=== PATIENT | female | born 1940 | race Hispanic/Latino ===

== ENCOUNTER 2016-10-20 12:23 | Inpatient (IN) | payer MEDICARE ==
[2016-10-20] MEDS ORDERED: Albuterol-Ipratrop 3 mg / 0.5 (3 ml) UD IH STA ×3 (12:33→14:08)
[2016-10-20] MEDS ORDERED: Nitroglycerin 2% Ointment Foilpak UD TOP STA (12:36)
--- NOTE | 2016-10-20 12:36 | ED PDOC ---
Arrival/HPI - General Time Seen by Provider: 10/20/16 12:26 Historian: Patient, Family - History of Present Illness Narrative History of Present Illness (Text): 10/20/16 12:35 76 year old female with a past medical history that includes atrial fibrillation on Coumadin, congestive heart failure, COPD, pancreatitis, CVA, TIA , diabetes, CABG, and breast cancer presents to the emergency department with shortness of breath since this morning. Patient also reports some chest tightness and nasal congestion. She reports intermittent leg swelling. No other complaints at this time. PMD: Dr. Duggan Time/Duration: 24 hours Symptom Onset: Sudden Symptom Course: Unchanged Modifying Factors (Text): None Associated Symptoms (Text): None Past Medical History - Provider Review Nursing Documentation Reviewed: Yes - Infectious Disease Hx of Infectious Diseases: None - Tetanus Immunization Tetanus Immunization: Unknown - Cardiac Hx Cardiac Disorders: Yes (Afib) Hx Congestive Heart Failure: Yes Hx Hypertension: Yes - Pulmonary Hx Chronic Obstructive Pulmonary Disease (COPD): Yes (+Home nebulizer) - Neurological HX Cerebrovascular Accident: Yes (speech impediment; word-finding difficulty) - HEENT Hx HEENT Disorder: Yes ([place]/glasses) - Renal Hx Renal Disorder: No - Endocrine/Metabolic Hx Diabetes Mellitus Type 2: Yes - Hematological/Oncological Hx Shingles: Yes (H/O IN JULY, left face) - Integumentary Hx Dermatological Disorder: No - Musculoskeletal/Rheumatological Hx Falls: Yes (past) - Gastrointestinal Hx Gastrointestinal Disorders: Yes (ULCER,GALL BLADDER DISEASE,CHOLECYSTECTOMY,) - Genitourinary/Gynecological Hx Genitourinary Disorders: No - Psychiatric Hx Psychophysiologic Disorder: Yes Hx Anxiety: Yes Hx Depression: No Hx Emotional Abuse: No Hx Physical Abuse: No Hx Substance Use: No - Surgical History Hx Appendectomy: Yes Hx Cholecystectomy: Yes Hx Coronary Stent: Yes (X1) Hx Mastectomy: Yes (left mastectomy) Hx Open Heart Surgery: Yes Other/Comment: QUADRUPLE BYPASS,OPEN HEART,CARDIAC STENT X 1 - Anesthesia Hx Anesthesia: Yes Hx Anesthesia Reactions: No Hx Malignant Hyperthermia: No - Suicidal Assessment Feels Threatened In Home Enviroment: No Family/Social History - Physician Review Nursing Documentation Reviewed: Yes Family/Social History: Unknown Family HX Smoking Status: Former Smoker Hx Alcohol Use: No Hx Substance Use: No Hx Substance Use Treatment: No Allergies/Home Meds Allergies/Adverse Reactions: Allergies latex Allergy (Verified 10/20/16 12:44) RASH Sulfa (Sulfonamide Antibiotics) Allergy (Verified 10/20/16 12:44) RASH rubber Allergy (Uncoded 10/20/16 12:44) RASH tape Allergy (Uncoded 10/20/16 12:44) RASH Home Medications: Home Meds Medication Instructions Recorded Confirmed Alprazolam [Xanax] 0.25 mg PO BID PRN 11/04/12 10/20/16 Atorvastatin Calcium [Lipitor] 40 mg PO HS 11/04/12 10/20/16 Pantoprazole Sodium [Protonix] 40 mg PO DAILY 08/07/15 10/20/16 Levothyroxine [Synthroid] 125 mcg PO DAILY 09/11/16 10/20/16 Albuterol 0.083% [Albuterol 0.083% 1 inh INH QID 10/20/16 10/20/16 Inhal Carol (2.5 mg/3 ml) UD] Insulin Lispro Mix 75/25 [HumaLOG 55 units SC BID 10/20/16 10/20/16 Mix 75/25] Insulin Lispro [humALOG] 0 units SC BID 10/20/16 10/20/16 Metolazone [Metolazone] 5 mg PO DAILY 10/20/16 10/20/16 Warfarin [Coumadin] 7.5 mg PO DAILY 10/20/16 10/20/16 Review of Systems - Physician Review All systems were reviewed & negative as marked: Yes - Review of Systems ENT: Sinus Congestion Respiratory: SOB Cardiovascular: Chest Pain Physical Exam Vital Signs Reviewed: Yes Vital Signs Temp Pulse Resp BP Pulse Ox 10/20/16 13:01 136/63 10/20/16 13:00 24 10/20/16 12:47 98.3 F 95 H 18 136/63 94 L Temperature: Afebrile Blood Pressure: Normal Pulse: Regular Respiratory Rate: Normal Appearance: Positive for: Well-Appearing, Non-Toxic, Uncomfortable Pain Distress: None Mental Status: Positive for: Alert and Oriented X 3 - Systems Exam Head: Present: Atraumatic, Normocephalic Pupils: Present: PERRL Extroacular Muscles: Present: EOMI Conjunctiva: Present: Normal Mouth: Present: Moist Mucous Membranes Neck: Present: Normal Range of Motion Respiratory/Chest: Present: Good Air Exchange, Rales (bilateral). No: Respiratory Distress, Accessory Muscle Use Cardiovascular: Present: Regular Rate and Rhythm, Normal S1, S2. No: Murmurs Abdomen: Present: Normal Bowel Sounds. No: Tenderness, Distention, Peritoneal Signs Back: Present: Normal Inspection Upper Extremity: Present: Normal Inspection. No: Cyanosis, Edema Lower Extremity: Present: Normal Inspection. No: Edema Neurological: Present: GCS=15, CN II-XII Intact, Speech Normal Skin: Present: Warm, Dry, Normal Color. No: Rashes Psychiatric: Present: Alert, Oriented x 3, Normal Insight, Normal Concentration Medical Decision Making ED Course and Treatment: Impression: 76 year old female with a past medical history that includes atrial fibrillation on Coumadin, congestive heart failure, COPD, pancreatitis, CVA, TIA , diabetes, CABG, and breast cancer presents to the emergency department with shortness of breath since this morning. Differential Diagnosis included but are not limited to: CHF exacerbation vs COPD exacerbation. Chest pain r/o ACS. Plan: -- EKG, CXR -- Albuterol, Duoneb, Lasix, Solumedrol -- Labs -- Reassess and disposition Prior Visits: Notes and results from previous visits were reviewed. Patient last seen in the ED on 09/22/16 for shortness of breath and admitted for CHF exacerbation. Progress Notes: EKG shows atrial fibrillation at 90 BPM with PVC's, no ST elevations, otherwise normal, no change from 09/22/16, interpreted by me. 10/20/16 14:48 Patient is feeling much better. Says she doesn't have SOB as much anymore and feel more comfortalbe. Speaking in full sentences. Lung sounds improved but still mild crackles. Oxy sat 85% on 4L, 96% on NRB. Discussed case with Dr. Samuel who is covering for Dr. Duggan. Dr. Sarmiento is previous business operations manager. Consult ordered. - Critical Care Critical Care Minutes: 30 minutes - Lab Interpretations Lab Results: 10/20/16 13:15 10/20/16 13:15 Lab Results 10/20/16 13:15: WBC 8.8 D, RBC 4.20, Hgb 11.2 L, Hct 37.2, MCV 88.6, MCH 26.7, MCHC 30.1 L, RDW 19.8 H, Plt Count 159, MPV 10.1, Gran % 79.6 H, Lymph % (Auto) 11.7 L, [place] % (Auto) 7.5 H, Eos % (Auto) 0.9 L, Baso % (Auto) 0.3, Gran # 6.96 H, Lymph # 1.0 L, [place] # 0.7 H, Eos # 0.1, Baso # 0.03, PT 27.9 H, INR 2.58 H, APTT 40.0 H, Sodium 137, Potassium 4.7, Chloride 93 L, Carbon Dioxide 34 H, Anion Gap 15, BUN 23 H, Creatinine 1.1, Est GFR ( Amer) 59, Est GFR (Non- Af Amer) 49, Random Glucose 344 H* D, Calcium 9.4, Lactate Dehydrogenase 521, Total Creatine Kinase 83, Troponin I 0.04, NT-Pro-B Natriuret Pep 1530 H 10/20/16 13:10: POC Glucose (mg/dL) 358 H - RAD Interpretation Radiology Orders: 10/20/16 12:34 CHEST PORTABLE [RAD] Stat - EKG Interpretation Interpreted by ED Physician: Yes Type: 12 lead EKG - Medication Orders Current Medication Orders: Discontinued Medications Albuterol/Ipratropium (Duoneb 3 Mg/0.5 Mg (3 Ml) Ud) 3 ml IH STAT STA Stop: 10/20/16 12:34 Last Admin: 10/20/16 13:01 Dose: 3 ML Albuterol/Ipratropium (Duoneb 3 Mg/0.5 Mg (3 Ml) Ud) 3 ml IH STAT STA Stop: 10/20/16 14:08 Last Admin: 10/20/16 14:19 Dose: 3 ML Albuterol/Ipratropium (Duoneb 3 Mg/0.5 Mg (3 Ml) Ud) 3 ml IH STAT STA Stop: 10/20/16 14:09 Last Admin: 10/20/16 14:19 Dose: 3 ML Furosemide (Lasix) 40 mg IVP STAT STA Stop: 10/20/16 12:34 Last Admin: 10/20/16 13:01 Dose: 40 MG MAR Blood Pressure Document 10/20/16 13:01 EWO (Rec: 10/20/16 13:01 EWO [id number]) Blood Pressure Blood Pressure (100/60-150/90) 136/63 IVP Administration Document 10/20/16 13:01 EWO (Rec: 10/20/16 13:01 EWO [id number]) Charges for Administration # of IVP Administrations 1 Insulin Human Regular (Humulin R) 6 units IVP STAT STA Stop: 10/20/16 13:59 Last Admin: 10/20/16 14:15 Dose: 6 UNITS Subcutaneous Admin in ER Document 10/20/16 14:15 EWO (Rec: 10/20/16 14:15 EWO [id number]) Injection Site MAR Injection Site Right Arm IVP Administration Document 10/20/16 14:15 EWO (Rec: 10/20/16 14:15 EWO [id number]) Charges for Administration # of IVP Administrations 1 Methylprednisolone (Solu-Medrol) 125 mg IVP STAT STA Stop: 10/20/16 12:34 Last Admin: 10/20/16 13:01 Dose: 125 MG IVP Administration Document 10/20/16 13:01 EWO (Rec: 10/20/16 13:01 EWO [id number]) Charges for Administration # of IVP Administrations 1 Nitroglycerin (Nitro-Bid 2% Oint) 1 ea TOP STAT STA Stop: 10/20/16 12:37 Last Admin: 10/20/16 13:01 Dose: 1 EA - Scribe Statement The provider has reviewed the documentation as recorded by the Cheri Rae Provider Scribe Attestation: All medical record entries made by the Cheri were at my direction and personally dictated by me. I have reviewed the chart and agree that the record accurately reflects my personal performance of the history, physical exam, medical decision making, and the department course for this patient. I have also personally directed, reviewed, and agree with the discharge instructions and disposition. Disposition/Present on Arrival - Present on Arrival Any Indicators Present on Arrival: Yes History of DVT/PE: No History of Uncontrolled Diabetes: No Urinary Catheter: Yes (inserted in ed) History Surgical Site Infection Following: None - Disposition Have Diagnosis and Disposition been Completed?: Yes Diagnosis: CHF (congestive heart failure), COPD (chronic obstructive pulmonary disease) Disposition: HOSPITALIZED Disposition Time: 14:50 Patient Plan: Admission Patient Problems: Current Active Problems Problem Status Diagnosed Atrial fibrillation with rapid ventricular response Acute Condition: GUARDED
[2016-10-20 13:23] LABS: ADD MANUAL DIFF? NO
[2016-10-20 13:25] LABS: BASO # 0.03 K/mm3 (0.0-2.0); BASO % 0.3 % (0.0-3.0); EOS # 0.1 (0.0-0.7); EOS % 0.9 % (1.5-5.0); GRAN # 6.96 (1.4-6.5); GRAN % 79.6 % (50.0-68.0); HEMATOCRIT 37.2 % (36.0-48.0); LYMPH % 11.7 % (22.0-35.0); MEAN CELL VOLUME 88.6 fL (80.0-105.0); MEAN CORPUSCULAR HEMOGLOBIN 26.7 pg (25.0-35.0); MEAN CORPUSCULAR HGB CONC 30.1 g/dl (31.0-37.0); MEAN PLATELET VOLUME 10.1 fl (7.0-11.0); MONO # 0.7 (0.1-0.6); MONO % 7.5 % (1.0-6.0); PLATELET COUNT 159 10^3/uL (120.0-450.0); RED CELL DISTRIBUTION WIDTH 19.8 % (11.5-14.5); WHITE BLOOD COUNT 8.8 10^3/ul (4.5-11.0)
[2016-10-20 13:35] LABS: INR 2.58 (0.93-1.08)
[2016-10-20 13:37] LABS: CALCIUM 9.4 mg/dL (8.4-10.5); POTASSIUM 4.7 mmol/L (3.6-5.0)
[2016-10-20 13:49] LABS: TROPONIN I 0.04 ng/mL
[2016-10-20] MEDS ORDERED: Insulin Regular 1 UNITS/0.01 ML ML IVP STA ×2 (13:58→15:53)
--- NOTE | 2016-10-20 14:19 | RAD ---
HISTORY: cough r/o pna vs chf COMPARISON: 09/27/2016 FINDINGS: LUNGS: There is interval worsening of pulmonary venous congestion and development of interstitial pulmonary edema. PLEURA: No significant pleural effusion identified, no pneumothorax apparent. CARDIOVASCULAR: There is severe cardiomegaly. Atherosclerotic aortic arch calcifications are present. . Status post CABG. OSSEOUS STRUCTURES: No significant abnormalities. VISUALIZED UPPER ABDOMEN: Normal. OTHER FINDINGS: None. IMPRESSION: Findings are consistent with congestive heart failure. No lobar pneumonia.
[2016-10-20 15:37] LABS: ARTERIAL BLOOD GAS HCO3 34.4 mmol/L (21-28); ARTERIAL BLOOD GAS O2 CAPACITY 14.3 mL/dl (16-24); ARTERIAL BLOOD GAS O2 CONTENT 12.8 ML/dl (15-23); ARTERIAL BLOOD GAS PH 7.42 (7.35-7.45); ARTERIAL BLOOD HGB O2 SAT 85.5 % (95.0-98.0); CARBOXYHEMOGLOBIN 2.6 % (0.5-1.5); HHB 10.3 % (0-5); METHEMOGLOBIN 1.6 % (0.0-3.0)
[2016-10-20] MEDS ORDERED: Albuterol-Ipratrop 3 mg / 0.5 (3 ml) UD IH PRN (15:53)
[2016-10-20] MEDS: Levothyroxine 125 MCG TAB PO SCH (17:02)
[2016-10-20] MEDS: Pantoprazole 40 mg EC Tab PO SCH (17:02)
[2016-10-20] MEDS: diltiaZEM 300 mg/24 Hours CD Cap PO SCH (17:10)
[2016-10-20] MEDS ORDERED: Insulin Lispro (humaLOG) MIX 75/25(10 ml) SC SCH (18:00)
[2016-10-20] MEDS: Potassium Chloride 20 mEq/15 ml LIQ UD PO SCH (18:02)
--- NOTE | 2016-10-20 18:21 | CARD ---
APPROVED REPORT EKG Measurement Heart [id number] <Conclusion> Atrial fibrillation, PVCs vs aberrancy RSR' or QR pattern in V1 suggests right ventricular conduction delay Cannot rule out Inferior infarct, age undetermined ST & T wave abnormality, consider lateral ischemia Abnormal ECG
[2016-10-20 18:50] VITALS: BMI 29.2
[2016-10-20] MEDS ORDERED: Insulin Regular 1 UNITS/0.01 ML ML SC STA (21:30)
[2016-10-20] MEDS: MethylPREDNISolone 40 mg Vial IV SCH (21:36)
--- NOTE | 2016-10-21 01:06 | HP ---
HISTORY OF PRESENT ILLNESS: The patient is a 76-year-old patient of Dr. Duggan, came to Emergency Room because of increasing shortness of breath that has been going on for the last 2-3 days, but got worse today. She also has some chest discomfort. No history of nausea, vomiting, no diarrhea, no f ever, no chills, no hemoptysis, no hematemesis. PAST MEDICAL HISTORY: She has significant past medical history of chronic A-Fib. The patient was rec ently admitted on 09/22 with almost similar complaints. History of multiple admissions with congesti ve heart failure. Non-insulin dependent diabetes. History of deep venous thrombosis. Chronic atria l fibrillation, on anticoagulation. History of chronic obstructive pulmonary disease. Coronary caryn ry disease, status post open heart surgery. History of cancer of breast. ALLERGIES: SHE IS ALLERGIC TO LATEX AND SULFA. PAST SURGICAL HISTORY: . MEDICATIONS AT HOME: She is on Xanax 0.25 twice a day, potassium 20 mEq 3 times a day, metolazone 5 mg daily, levothyroxine 125 mcg daily, NovoLog twice a day, Lasix 40 mg daily, atorvastatin 40 mg at bedtime, insulin 70/25 55 units twice a day, Neurontin 600 three times a day, nebulizer treatment 230 0 daily, Coumadin 7.5 daily, digoxin 0.125 daily. SOCIAL HISTORY: History of smoking in the past, but quit many years ago. REVIEW OF SYSTEMS: Significant for shortness of breath and some chest discomfort. No fever or chill s. No nausea or vomiting. PHYSICAL EXAMINATION: GENERAL: She is awake and alert, communicative. VITAL SIGNS: She is afebrile, pulse 95, respirations 18, blood pressure 130/63. LUNGS: Bilateral fair airflow, no rhonchi or crackle. HEART: S1, S2 audible, irregular rate control. ABDOMEN: Soft, nontender, no rebound, no guarding. NEUROLOGIC: The patient is awake and alert, communicative, mild shortness of breath. LABORATORY DATA: WBC is 8.8, hemoglobin 11.2, hematocrit 37.2, platelets 159. PT 27.9, INR 2.58. C hemistry: Sodium , potassium 4.7, chloride 93, CO2 34, BUN 23, creatinine 1.1, blood sugar of 3 69. Her X-ray of chest shows congestive heart failure with no infiltrate. ASSESSMENT: 1. Congestive heart failure exacerbation, [id number]. 2. Chronic atrial fibrillation. 3. Hypertension. 4. Chronic obstructive pulmonary disease. 5. Hyperlipidemia. 6. Insulin-dependent diabetes. PLAN: The patient will be admitted on telemetry. We will start her on IV steroids. Start her on IV Lasix, nebulizer treatment and we will resume her medication, monitor her blood sugar closely. Dr. Duggan will follow up patient in a.m. Cassandra Samuel MD cc: [phone] TT: 10/21/2016 01:05:43 mn
[2016-10-21] MEDS ORDERED: Insulin Regular 1 UNITS/0.01 ML ML SC STA (02:08)
--- NOTE | 2016-10-21 04:55 | CP.PCM.PN ---
Subjective - Date & Time of Evaluation Date of Evaluation: 10/21/16 Time of Evaluation: 04:55 - Subjective Subjective: S:Patient was seen for Hyperglycemia. Patient is asleep now, arousable. FSBS was 362 mg %. 10 untis of regular insulin SC was ordered. FSBS is 327mg% now. Asymoptmatic. O: Last Vital Signs 3 Temp 97.8 F 10/21/16 05:26 Pulse 64 10/21/16 05:26 Resp 18 10/21/16 05:26 BP 128/53 L 10/21/16 05:26 Pulse Ox 91 L 10/21/16 05:26 Sleeping,arousable. LUNGS:Normal breathing pattern. A:Hyperglycemia. P:Regular insulin 10 Units SC ordered. Objective - Vital Signs/Intake and Output Vital Signs (last 24 hours): Temp Pulse Resp BP Pulse Ox 97.8 F 78 18 134/60 95 10/21/16 00:01 10/21/16 02:00 10/21/16 00:01 10/21/16 00:01 10/21/16 00:01 Intake and Output: 10/20/16 10/21/16 18:59 06:59 Intake Total 600 Balance 600 - Medications Medications: Current Medications Acetaminophen (Tylenol 325mg Tab) 650 mg PO Q4H PRN PRN Reason: Fever >100.5 F Alprazolam (Xanax) 0.25 mg PO BID PRN; Protocol PRN Reason: Anxiety Stop: 10/27/16 16:33 Atorvastatin Calcium (Lipitor) 40 mg PO HS [facility] Last Admin: 10/20/16 21:37 Dose: 40 mg Digoxin (Lanoxin) 0.125 mg PO 1400 [facility]ATHER Diltiazem HCl (Cardizem Cd) 300 mg PO DAILY [facility] Last Admin: 10/20/16 17:10 Dose: Not Given Furosemide (Lasix) 40 mg IVP Q12 [facility] Last Admin: 10/20/16 22:13 Dose: Not Given Gabapentin (Neurontin) 600 mg PO TID [facility] PRN Reason: Protocol Last Admin: 10/20/16 17:02 Dose: 600 mg Insulin Human Regular (Humulin R High) 0 units SC ACHS [facility] PRN Reason: Protocol Insulin Lispro Protam/Lispro Human (Humalog Mix 75/25) 55 units SC BID [facility] Last Admin: 10/20/16 18:19 Dose: 55 units Levothyroxine Sodium (Synthroid) 125 mcg PO DAILY [facility] Last Admin: 10/20/16 17:02 Dose: 125 mcg Methylprednisolone (Solu-Medrol) 20 mg IV Q12 [facility] Last Admin: 10/20/16 21:36 Dose: 20 mg Ondansetron HCl (Zofran Inj) 4 mg IVP Q4H PRN PRN Reason: Nausea/Vomiting Pantoprazole Sodium (Protonix Ec Tab) 40 mg PO DAILY [facility] Last Admin: 10/20/16 17:02 Dose: 40 mg Potassium Chloride (Potassium Chloride Oral Soln) 20 meq PO TID [facility] Last Admin: 10/20/16 18:02 Dose: 20 meq Warfarin Sodium (Coumadin) 7.5 mg PO 1800 HEATHER PRN Reason: Protocol Last Admin: 10/20/16 17:02 Dose: 7.5 mg - Labs Labs: PT 27.9 Seconds (9.9-11.8) H 10/20/16 13:15 INR 2.58 (0.93-1.08) H 10/20/16 13:15 APTT 40.0 Seconds (23.7-30.8) H 10/20/16 13:15
[2016-10-21 07:09] LABS: ADD MANUAL DIFF? NO
[2016-10-21 07:18] LABS: GRAN # 7.13 (1.4-6.5); GRAN % 87.1 % (50.0-68.0); HEMATOCRIT 32.8 % (36.0-48.0); LYMPH # 0.8 (1.2-3.4); LYMPH % 9.2 % (22.0-35.0); MEAN CELL VOLUME 86.8 fL (80.0-105.0); MEAN CORPUSCULAR HEMOGLOBIN 26.5 pg (25.0-35.0); MEAN CORPUSCULAR HGB CONC 30.5 g/dl (31.0-37.0); MONO # 0.3 (0.1-0.6); MONO % 3.7 % (1.0-6.0); PLATELET COUNT 147 10^3/uL (120.0-450.0); RED CELL DISTRIBUTION WIDTH 19.6 % (11.5-14.5); WHITE BLOOD COUNT 8.2 10^3/ul (4.5-11.0)
[2016-10-21 07:25] LABS: INR 2.82 (0.93-1.08)
[2016-10-21] MEDS: Insulin Reg-HIGH-Coverage SC SCH ×4 (08:20→21:50)
[2016-10-21 08:25] LABS: ALB/GLOB RATIO 1.2 (1.1-1.8); BILIRUBIN,TOTAL 0.7 mg/dL (0.2-1.3); CALCIUM 8.7 mg/dL (8.4-10.5); POTASSIUM 4.7 mmol/L (3.6-5.0); TOTAL PROTEIN 6.4 g/dL (5.8-8.3)
--- NOTE | 2016-10-21 09:55 | PN ---
DATE: 10/21/2016 SUBJECTIVE: A 76-year-old white female with history of congestive cardiomyopathy; insulin-dependent diabetes mellitus, poorly controlled; history of CVA in the past. The patient had been recently disc harged from [facility], was doing well at home when she developed some shortness of breath, carla e swelling in her ankles and difficulty breathing. The patient came to the ER, was found to have blo od sugars in between 350 and 400; was also found to have an elevated BNP. She has chronic atrial fib rillation and she had signs and symptoms of congestive heart failure. The patient was admitted to [facility] floor. PHYSICAL EXAMINATION: GENERAL: Shows a well-developed, slightly obese white female in no apparent distress the following m orning. HEENT: Essentially within normal limits. HEART: Irregularly irregular with controlled ventricular response. CHEST: Shows some decreased breath sounds, but basically clear to the bases. ABDOMEN: Benign. EXTREMITIES: Without cyanosis, clubbing or edema. The patient has been treated with Lasix, with diltiazem, with warfarin and insulin coverage and with afterload reduction with lisinopril. The patient is slightly improved. 12-POINT REVIEW OF SYSTEMS: Unremarkable. The patient denies any chest pain or palpitations. IMPRESSION: Exacerbations of congestive heart failure, acute systolic congestive heart failure on to p of combined diastolic and systolic heart failure, poorly controlled diabetes mellitus, hyperglycemi a and chronic atrial fibrillation. Kosta Duggan MD cc: [id number] TT: 10/21/2016 09:54:55 Confirmation # [id number] Dictation # [id number] mn
[2016-10-21] MEDS: Potassium Chloride 20 mEq/15 ml LIQ UD PO SCH ×3 (10:13→18:13)
[2016-10-21] MEDS: Levothyroxine 125 MCG TAB PO SCH (10:14)
[2016-10-21] MEDS: diltiaZEM 300 mg/24 Hours CD Cap PO SCH (10:15)
[2016-10-21] MEDS: Pantoprazole 40 mg EC Tab PO SCH (10:15)
[2016-10-21] MEDS: Insulin Human NPH 1 UNITS/0.01 ML SC SCH ×2 (10:15→18:14)
[2016-10-21] MEDS: MethylPREDNISolone 40 mg Vial IV SCH ×2 (10:15→21:48)
--- NOTE | 2016-10-21 10:30 | CON ---
DATE: 10/21/2016 CONSULTATION INDICATIONS: Shortness of breath, congestion, chest pain, edema. HISTORY OF PRESENT ILLNESS: This is a 76-year-old woman admitted yesterday via the Emergency Room. She came here to complain of shortness of breath, which had been progressive over several days. This is a recurring symptom. She has had recent [facility] admissions for similar symptoms. She also complained of chest discomfort and pedal edema. She was congested. There was orthopnea, b ut no PND, syncope, presyncope, lightheadedness, dizziness or vertigo. No fever, chills, or hemoptys is. No abdominal pain, nausea, vomiting, diarrhea, constipation, or melena. PAST MEDICAL HISTORY: Complex. She has coronary artery disease with coronary bypass surgery and sev ere LV dysfunction. She has had congestive heart failure with several recent admissions. She has CO PD, atrial fibrillation on warfarin. Echocardiography reveals severe LV dysfunction with an ejection fraction of about 25%. There is mild to moderate mitral regurgitation, moderate tricuspid regurgita tion, and mild pulmonary hypertension. She is a former smoker. She is a diabetic with a history of stroke, DVT, pancreatitis, breast cancer with lumpectomy. She has had surgeries including cholecyste ctomy, appendectomy, and hysterectomy. MEDICATIONS: At the time of admission include albuterol, Cardizem, warfarin, insulin, digoxin, Lasix , Lipitor, metolazone, Neurontin, potassium chloride, Protonix, Synthroid, Xanax, and insulin. ALLERGIES: SHE NOTES AN ALLERGY TO SULFA AND LATEX. SOCIAL HISTORY: She lives at home. She has a history of cigarette-smoking. She denies significant alcohol intake. REVIEW OF SYSTEMS: A 10-point review of systems is otherwise unremarkable except as noted above. FAMILY HISTORY: Noncontributory. PHYSICAL EXAMINATION: GENERAL: She is a well-developed elderly woman lying in bed in no acute distress. VITAL SIGNS: Notable for atrial fibrillation at 60-70 beats per minute. She is afebrile, blood pres sure 128/53, respiratory rate 18-19, O2 sat 91-95% on nasal cannula. HEENT: Reveals no neck-vein distention, thyromegaly, or carotid bruits. Mucous membranes are moist. Conjunctivae are pink. NECK: Supple. LUNGS: Lung mohan - scattered rhonchi. HEART: Revealed normal first and second heart sounds, irregular heart rate, systolic murmur along th e left sternal border. PMI not palpable. ABDOMEN: Soft, bowel sounds present. No mass, organomegaly, tenderness, rebound, guarding, CVA tend erness, or palpable abdominal aortic aneurysm. EXTREMITIES: Reveals mild pedal edema. NEUROLOGIC: Awake, alert, and oriented. PSYCHIATRIC: Normal as to mood and affect. SKIN: Warm and dry. No rash or cellulitis. LABORATORY AND IMAGING: A portable chest x-ray in the Emergency Room demonstrates findings consisten t with congestive heart failure. EKG demonstrates atrial fibrillation, poor R-wave progression, ST-T wave changes. White count normal, platelet count normal, hemoglobin 10, hematocrit 32.8. PT 30.5, INR 2.82. PTT 40. Blood gas noted. Electrolytes, BUN, creatinine unremarkable. Her chloride is 93 . Carbon dioxide is 34. Blood sugars are elevated in the 300-500 range. CK is 83. Troponin 0.04 a nd 0.05. BNP is 1530. IMPRESSION: The patient is 76-year-old woman with severe left ventricular dysfunction, admitted with congestive heart failure, symptoms including progressive shortness of breath, congestion, chest pain , and pedal edema. There is no evidence of acute myocardial infarction. She is in atrial fibrillati on. Chest x-ray shows congestive heart failure. She has been treated with IV Lasix. Her symptoms a re better this morning. She is on telemetry. I will review her old records. She is getting IV Lasix. We will monitor I's a nd O's, as well as stool for occult blood. I would continue her other cardiac medications, including diltiazem, digoxin, Lasix, Lipitor. She is also getting warfarin, which I would hold today and admi marija with monitoring daily INRs. She is getting respiratory treatments. She is getting insulin co verage for hyperglycemia. She is getting gabapentin, Lipitor, potassium chloride, Protonix, Solu-Med rol, Synthroid, Tylenol, Xanax, and Zofran. I would add lisinopril 2.5 mg daily and titrate. I will follow along with you. I will make addition al recommendations based on her clinical course. Clayton Sarmiento MD cc: [id number] TT: 10/21/2016 10:30:04 Confirmation # [id number] Dictation # [id number] jn
[2016-10-21] MEDS ORDERED: Insulin Lispro 1 UNITS/0.01 ML SC STA (12:28)
[2016-10-21] MEDS: Digoxin 125 mcg (0.125 mg) Tab PO SCH (14:34)
[2016-10-22 05:32] VITALS: O2SAT 90
[2016-10-22 06:45] LABS: POTASSIUM 4.3 mmol/L (3.6-5.0)
[2016-10-22 06:59] LABS: INR 3.59 (0.93-1.08)
[2016-10-22] MEDS: Insulin Reg-HIGH-Coverage SC SCH ×3 (08:25→17:30)
--- NOTE | 2016-10-22 08:49 | CP.PCM.PN ---
Subjective - Date & Time of Evaluation Date of Evaluation: 10/22/16 Time of Evaluation: 08:00 - Subjective Subjective: Stable on 2R. She feels better. No CP or SOB. BSs ~ 200's now. V/S noted. AF. PE: Lungs: rhonchi Cor.: irreg. S1,S2 Abd.: soft Ext.: no edema Neuro.: alert I/O= 600/2000 Labs noted: K+= 4.3, NR= 3.59 BC x2 NG at 24 hrs. Objective - Vital Signs/Intake and Output Vital Signs (last 24 hours): Temp Pulse Resp BP Pulse Ox 97.7 F 60 20 127/46 L 90 L 10/22/16 05:31 10/22/16 05:31 10/22/16 05:31 10/22/16 05:31 10/22/16 05:31 Intake and Output: 10/22/16 10/22/16 06:59 18:59 Intake Total 600 Output Total 1600 Balance -1000 - Medications Medications: Current Medications Acetaminophen (Tylenol 325mg Tab) 650 mg PO Q4H PRN PRN Reason: Fever >100.5 F Alprazolam (Xanax) 0.25 mg PO BID PRN; Protocol PRN Reason: Anxiety Stop: 10/27/16 16:33 Atorvastatin Calcium (Lipitor) 40 mg PO HS [facility] Last Admin: 10/21/16 21:49 Dose: 40 mg Digoxin (Lanoxin) 0.125 mg PO 1400 [facility] Last Admin: 10/21/16 14:34 Dose: 0.125 mg Diltiazem HCl (Cardizem Cd) 300 mg PO DAILY [facility] Last Admin: 10/21/16 10:15 Dose: 300 mg Furosemide (Lasix) 40 mg IVP Q12 [facility] Last Admin: 10/21/16 21:49 Dose: 40 mg Gabapentin (Neurontin) 600 mg PO TID [facility] PRN Reason: Protocol Last Admin: 10/21/16 18:13 Dose: 600 mg Insulin Human NPH (Humulin N) 60 units SC BID [facility] Last Admin: 10/21/16 18:14 Dose: 60 units Insulin Human Regular (Humulin R High) 0 units SC ACHS [facility] PRN Reason: Protocol Last Admin: 10/22/16 08:25 Dose: 4 units Levothyroxine Sodium (Synthroid) 125 mcg PO DAILY [facility] Last Admin: 10/21/16 10:14 Dose: 125 mcg Lisinopril (Zestril) 2.5 mg PO DAILY [facility] Last Admin: 10/21/16 10:14 Dose: 2.5 mg Methylprednisolone (Solu-Medrol) 20 mg IV Q12 [facility] Last Admin: 10/21/16 21:48 Dose: 20 mg Ondansetron HCl (Zofran Inj) 4 mg IVP Q4H PRN PRN Reason: Nausea/Vomiting Pantoprazole Sodium (Protonix Ec Tab) 40 mg PO DAILY [facility] Last Admin: 10/21/16 10:15 Dose: 40 mg Potassium Chloride (Potassium Chloride Oral Soln) 20 meq PO TID [facility] Last Admin: 10/21/16 18:13 Dose: 20 meq Warfarin Sodium (Coumadin) 7.5 mg PO 1800 [facility] PRN Reason: Protocol Last Admin: 10/20/16 17:02 Dose: 7.5 mg - Labs Labs: 10/21/16 06:45 10/22/16 05:30 PT 38.8 Seconds (9.9-11.8) H* 10/22/16 05:30 INR 3.59 (0.93-1.08) H* 10/22/16 05:30 APTT 40.0 Seconds (23.7-30.8) H 10/20/16 13:15 Assessment and Plan - Assessment and Plan (Free Text) Plan: Assessment: Dyspnea/CP/Congestion/Edema CHF COPD CAD/CABG/Severe LVD Diabetes/Hyperglycemia Chronic AF MR, mild/moderate TR, moderate PH, mild Former Smoker CVA Breast cancer with lumpectomy S/P GB surgery, hysterectomy, appendectomy DVT Pancreatitis Plan: Continue tel./OOB Continue IV Lasix Hold wrafarin for now. Monitor INR's daily. RX for diabetes Monitor labs, I/O sats., BS's, INR's, etc. Will follow.
[2016-10-22] MEDS: Potassium Chloride 20 mEq/15 ml LIQ UD PO SCH ×3 (11:00→18:42)
[2016-10-22] MEDS: MethylPREDNISolone 40 mg Vial IV SCH (11:00)
[2016-10-22] MEDS: diltiaZEM 300 mg/24 Hours CD Cap PO SCH (11:01)
[2016-10-22] MEDS: Pantoprazole 40 mg EC Tab PO SCH (11:01)
[2016-10-22] MEDS: Insulin Human NPH 1 UNITS/0.01 ML SC SCH ×2 (11:02→17:29)
[2016-10-22] MEDS: Levothyroxine 125 MCG TAB PO SCH (11:02)
[2016-10-22] MEDS: Digoxin 125 mcg (0.125 mg) Tab PO SCH (15:17)
--- NOTE | 2016-10-22 18:58 | PN ---
DATE: 10/22/2016 A 76-year-old white female admitted to the hospital with uncontrolled diabetes, congestive heart fail ure, shortness of breath, exacerbation of COPD, chronic atrial fibrillation and a history of a stroke in the past. The patient is doing better. Her BNP is trending down. She has had less shortness of breath. She is able to ambulate some. She has had some fluctuating blood sugars. We are attemptin g to control her blood sugars with increased doses of long-acting and short-acting insulin. She is a wake, alert and oriented x 3. She has no complaints today. She was able to do some ambulation. She is sitting up having dinner with her son. Her speech is more fluent today. OBJECTIVE: CHEST: Shows less rales and less wheezing. EXTREMITIES: Without cyanosis, clubbing or edema. VITAL SIGNS: Stable with a blood pressure 100/57. She is afebrile. Her blood sugar today has been ranging in the 200-300 range. We will increase her short-acting regim en prior to meals. BUN and creatinine are elevated at 45 and 1.2. She was seen in consultation by Yasemin Sarmiento today. Her 12 point review of systems is unremarkable. The plan is to control her blood sugars and mostly likely discharge to home in 24-48 hours. Kosta Duggan MD cc: [id number] TT: 10/22/2016 18:57:42 Confirmation # [id number] Dictation # [id number] zainab
[2016-10-22] MEDS ORDERED: Insulin Reg-HIGH-Coverage SC SCH (22:00)
[2016-10-23 06:38] LABS: INR 2.47 (0.93-1.08)
[2016-10-23 06:51] LABS: CALCIUM 9.1 mg/dL (8.4-10.5); POTASSIUM 4.1 mmol/L (3.6-5.0)
[2016-10-23] MEDS ORDERED: Insulin Regular 1 UNITS/0.01 ML ML SC SCH (07:30)
[2016-10-23] MEDS: diltiaZEM 300 mg/24 Hours CD Cap PO SCH (10:28)
[2016-10-23] MEDS: Pantoprazole 40 mg EC Tab PO SCH (10:31)
[2016-10-23] MEDS: Potassium Chloride 20 mEq/15 ml LIQ UD PO SCH ×2 (10:31→13:55)
[2016-10-23] MEDS: Levothyroxine 125 MCG TAB PO SCH (10:32)
--- NOTE | 2016-10-23 10:32 | DS ---
A 76-year-old white female with history of congestive cardiomyopathy, admitted to the hospital with a cute shortness of breath, acute systolic heart failure based on top of combined diastolic and systoli c heart failure. The patient also has a history of COPD and insulin-dependent diabetes mellitus, poo rly controlled. Blood sugars were in the 400-500 range. The patient was treated with increasing dos es of regular insulin before meals and increased doses of long acting insulin twice a day. She was a lso seen in consultation by Dr. Sarmiento. She was treated with diuretics. She has been hemoconcentrat ed to a BUN and creatinine of 52 and 1.3. Blood sugar is 203 today. H and H are 10 and 32.8. Vital signs are stable. The patient has chronic atrial fibrillation with blood pressure of 113/57. She i s without complaints today. She is tolerating her diet well. She is less short of breath. She is a ble to ambulate and use oxygen minimally. The patient will be followed as an outpatient. She is on Coumadin. Her INR is 2.47 today. Blood sugars were down as low as 182 today. Calcium was 91. The patient will be followed as an outpatient. FINAL DISCHARGE DIAGNOSES: Congestive cardiomyopathy, insulin-dependent diabetes mellitus, poorly co ntrolled, chronic atrial fibrillation, controlled ventricular response and chronic obstructive pulmon nora disease and history of cerebrovascular accident. Kosta Duggan MD cc: [id number] TT: 10/23/2016 10:32:17 en
[2016-10-23] MEDS: Insulin Human NPH 1 UNITS/0.01 ML SC SCH (10:40)
--- NOTE | 2016-10-23 10:41 | PN ---
DATE: 10/23/2016 SUBJECTIVE: The patient is seen lying in bed on telemetry. She is more comfortable. She denies any dyspnea at rest. Plans are being made for discharge home later today. CURRENT MEDICATIONS: Include diltiazem 300 mg daily, Coumadin, insulin, digoxin 0.125 mg daily, Lasi x 40 mg IV b.i.d., Lipitor 40 mg daily, Neurontin, potassium supplement, Protonix, Synthroid 125 mcg daily, Zestril 2.5 mg daily, and Xanax p.r.n. OBJECTIVE: GENERAL: She is a middle-aged woman who appears comfortable at the present time. VITAL SIGNS: Her blood pressure is 112/60 with a pulse of 56 in atrial fibrillation, respirations ar e 16. She is afebrile. HEENT: No JVD. CHEST: A few scattered rhonchi. HEART: PMI displaced laterally with an irregularly irregular rhythm and soft tones noted. ABDOMEN: Soft, nontender, normoactive bowel sounds. EXTREMITIES: No edema. DIAGNOSTIC DATA: BUN and creatinine are 52 and 1.3, potassium 4.1. INR 2.47, glucose 182. IMPRESSION: 1. Decompensated congestive heart failure, clinically improved. 2. History of chronic obstructive pulmonary disease. 3. Coronary artery disease, status post prior bypass surgery. 4. Severe left ventricular systolic dysfunction. 5. Chronic atrial fibrillation. 6. Rest of problems as noted. RECOMMENDATIONS: IV Lasix can be switched to oral administration. Anticoagulation should continue w ith a target INR between 2.0 and 3.0. Sodium restriction is advised. Close outpatient followup will be arranged. Edwin Carter MD cc: [id number] TT: 10/23/2016 10:40:20 Confirmation # [id number] Dictation # [id number]
[2016-10-23 11:54] VITALS: BP 123/43; PULSE 46; RESP 18; TEMP 97.9
[2016-10-23] MEDS: Digoxin 125 mcg (0.125 mg) Tab PO SCH (13:54)
[2016-10-23 13:55] VITALS: PULSE 70
== END 2016-10-23 14:53 | disposition home or self-care (01) | DRG 293 ==
LOC: ED 12:23 → ERH 14:20 → 2RNO 16:16
PROVIDERS: ADMIT Internal Medicine; ATTEND Internal Medicine
DX: I11.0 Hypertensive heart disease with heart failure (principal); I50.41 Acute combined systolic (congestive) and diastolic (congestive) heart failure; E11.65 Type 2 diabetes mellitus with hyperglycemia; I42.0 Dilated cardiomyopathy; I48.2 Chronic atrial fibrillation; J44.9 Chronic obstructive pulmonary disease, unspecified; I25.10 Atherosclerotic heart disease of native coronary artery without angina pectoris; I08.1 Rheumatic disorders of both mitral and tricuspid valves; I27.2 Other secondary pulmonary hypertension; E78.5 Hyperlipidemia, unspecified; Z86.73 Personal history of transient ischemic attack (TIA), and cerebral infarction without residual deficits; Z79.4 Long term (current) use of insulin; Z86.718 Personal history of other venous thrombosis and embolism; Z85.3 Personal history of malignant neoplasm of breast; Z95.1 Presence of aortocoronary bypass graft; Z88.2 Allergy status to sulfonamides; Z91.040 Latex allergy status; Z79.01 Long term (current) use of anticoagulants; Z87.891 Personal history of nicotine dependence

== ENCOUNTER 2018-01-03 17:27 | Inpatient (IN) | payer MEDICARE ==
[2018-01-03 17:36] VITALS: BMI 22.3
--- NOTE | 2018-01-03 17:39 | ED PDOC ---
Arrival/HPI - General Time Seen by Provider: 01/03/18 17:34 Historian: Patient - History of Present Illness Narrative History of Present Illness (Text): 01/03/18 17:35 77 year old female, whose past medical history includes a previous CVA and shingles, who presents to the emergency department via EMS for confusion and a headache. 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 Patient's daughter states she was fine this morning but when she came home from work the patient was confused and couldn't say how she felt. Patient's daughter states the patient always has a headache due to shingles. Patient saw Dr. Holland, pipe crew foreman, on Friday and everything was fine. Patient and patient's daughter denies any fever, chills, chest pain, shortness of breath, nausea, vomiting, diarrhea, back pain, neck pain, dizziness, or any other complaints. Time/Duration: Prior to Arrival Symptom Onset: Sudden Symptom Course: Unchanged Activities at Onset: Light Context: Home Past Medical History - Provider Review Nursing Documentation Reviewed: Yes - Infectious Disease Hx of Infectious Diseases: None - Tetanus Immunization Tetanus Immunization: Unknown - Cardiac Hx Cardiac Disorders: Yes (Afib) Hx Congestive Heart Failure: Yes Hx Hypertension: Yes - Pulmonary Hx Chronic Obstructive Pulmonary Disease (COPD): Yes (+Home nebulizer) - Neurological HX Cerebrovascular Accident: Yes (speech impediment; word-finding difficulty) - HEENT Hx HEENT Disorder: Yes ([place]/glasses) - Renal Hx Renal Disorder: No - Endocrine/Metabolic Hx Diabetes Mellitus Type 2: Yes - Hematological/Oncological Hx Shingles: Yes (H/O IN JULY, left face) - Integumentary Hx Dermatological Disorder: No - Musculoskeletal/Rheumatological Hx Falls: Yes (past) - Gastrointestinal Hx Gastrointestinal Disorders: Yes (ULCER,GALL BLADDER DISEASE,CHOLECYSTECTOMY,) - Genitourinary/Gynecological Hx Genitourinary Disorders: No - Psychiatric Hx Psychophysiologic Disorder: Yes Hx Anxiety: Yes Hx Depression: No Hx Emotional Abuse: No Hx Physical Abuse: No Hx Substance Use: No - Surgical History Hx Appendectomy: Yes Hx Cholecystectomy: Yes Hx Coronary Stent: Yes (X1) Hx Mastectomy: Yes (left mastectomy) Hx Open Heart Surgery: Yes Other/Comment: QUADRUPLE BYPASS,OPEN HEART,CARDIAC STENT X 1 - Anesthesia Hx Anesthesia: Yes Hx Anesthesia Reactions: No Hx Malignant Hyperthermia: No - Suicidal Assessment Feels Threatened In Home Enviroment: No Family/Social History - Physician Review Nursing Documentation Reviewed: Yes Family/Social History: Unknown Family HX Smoking Status: Former Smoker Hx Alcohol Use: No Hx Substance Use: No Hx Substance Use Treatment: No Allergies/Home Meds Allergies/Adverse Reactions: Allergies latex Allergy (Verified 10/20/16 12:44) RASH Sulfa (Sulfonamide Antibiotics) Allergy (Verified 10/20/16 12:44) RASH rubber Allergy (Uncoded 10/20/16 12:44) RASH tape Allergy (Uncoded 10/20/16 12:44) RASH Home Medications: Home Meds Medication Instructions Recorded Confirmed Alprazolam [Xanax] 0.25 mg PO BID PRN 11/04/12 10/20/16 Atorvastatin Calcium [Lipitor] 40 mg PO HS 11/04/12 10/20/16 Pantoprazole Sodium [Protonix] 40 mg PO DAILY 08/07/15 10/20/16 Levothyroxine [Synthroid] 125 mcg PO DAILY 09/11/16 10/20/16 Albuterol 0.083% [Albuterol 0.083% 1 inh INH QID 10/20/16 10/20/16 Inhal Carol (2.5 mg/3 ml) UD] Insulin Lispro Mix 75/25 [HumaLOG 55 units SC BID 10/20/16 10/20/16 Mix 75/25] Metolazone 5 mg PO DAILY 10/20/16 10/20/16 Warfarin [Coumadin] 7.5 mg PO DAILY 10/20/16 10/20/16 Review of Systems - Physician Review All systems were reviewed & negative as marked: Yes - Review of Systems Constitutional: Normal Eyes: Normal ENT: Normal Respiratory: Normal. absent: SOB, Cough Cardiovascular: Normal. absent: Chest Pain Gastrointestinal: Normal. absent: Abdominal Pain Genitourinary Female: Normal Musculoskeletal: Normal Skin: Normal Neurological: Headache, Facial Droop (left sided). absent: Dizziness Endocrine: Normal Hemo/Lymphatic: Normal Psychiatric: Other (confusion) Physical Exam - Physical Exam Narrative Physical Exam (Text): 01/03/18 17:42 Gen: alert, mild distress ENT: normal pharynx Eye: Neck: no JVD, supple, no adenopathy CV: regular rate, regular rhythm, no rubs,no murmur, no gallops, S1, S2, pulses equal and strong Pulm: no distress, clear to auscultation, no wheeze, no rhonchi, breath sounds equal, no rales Abd: soft, nontender, no guarding, no rebound, no rigidity, normal bowel sounds Ext: no edema Skin: good color, no rash, no cyanosis Psych: responds appropriately to questions, confused Neuro: aphasia, motor intact, limited sensitivity left arm Vital Signs Temp Pulse Resp BP Pulse Ox 01/03/18 19:25 75 18 145/92 H 95 01/03/18 18:02 98.3 F 71 18 154/57 H 95 01/03/18 17:30 98.8 F 74 16 154/57 H 99 Medical Decision Making ED Course and Treatment: 01/03/18 17:45 Case discussed with Logan Meija, neurologist, who requests a CT Head and Neck for evaluation of large vessel lesion. Agrees pt is not thrombolysis candidate at this time. 01/03/18 17:58 EKG reviewed, shows Atrial fibrillation at 68 bpm. Normal qrs. Rt axis deviation. Qwave in V1. Poor wave regression. Non-specific lateral ST/T wave changes. 01/03/18 18:19 CT Head reviewed, shows: HEMORRHAGE: No intracranial hemorrhage. BRAIN: No mass effect or edema. There is chronic encephalomalacia in the right frontal lobe. There are no acute intracranial findings VENTRICLES: Unremarkable. No hydrocephalus. CALVARIUM: Unremarkable. PARANASAL SINUSES: Unremarkable as visualized. No significant inflammatory changes. MASTOID AIR CELLS: Unremarkable as visualized. No inflammatory changes. OTHER FINDINGS: None. IMPRESSION: No acute intracranial findings 01/03/18 20:[address] Samuel, covering for Dr. Duggan, who is aware and agrees with plan. Accepts pt into her care for admission. 01/03/18 20:37 CTA Neck reviewed, shows: VASCULATURE: Right common carotid artery: No significant stenosis. No dissection or occlusion. Right internal carotid artery: There is atherosclerosis of the proximal right internal carotid artery, with approximately 66% stenosis. No occlusion. Right external carotid artery: There is stenosis of the proximal right external carotid artery. Right vertebral artery: Venous enhancement an artifact significantly limit evaluation of the proximal right vertebral artery. There is no significant stenosis or occlusion of the remaining right vertebral artery. Left common carotid artery: No significant stenosis. No dissection or occlusion. Left internal carotid artery: There is atherosclerosis of the proximal left internal carotid artery. There is absence of flow within the left internal carotid artery, consistent with occlusion. Left external carotid artery: There is severe stenosis or occlusion with reconstitution of the left external carotid artery. Left vertebral artery: There is mild stenosis of the distal left vertebral artery. Additional atherosclerotic changes are visualized of the left vertebral artery. Severe stenosis is visualized of the proximal left vertebral artery. Other vasculature: There is atherosclerosis of the bilateral subclavian arteries with moderate stenoses. For discussion of the intracranial arteries, refer to the CTA head from the same day. There is atherosclerosis of the aortic arch. There is heterogeneous enhancement of the left internal jugular vein. NECK: Bones/joints: Sternotomy wires are identified. Lymph nodes: There is mediastinal and right hilar lymphadenopathy. A right hilar mass is visualized measuring 3.4 x 2.0 cm. There is an adjacent consolidation within the right upper lobe of the lung. Within the left upper lobe of the lung, there is a pleurally based nodule measuring 1.2 cm in diameter. Malignancy is considered. Lung apices: On series 3 image 69, there is a band of hypodensity within the right upper lobe. A filling defect in a pulmonary vessel is considered, without definitive involvement of the pulmonary artery. CAROTID STENOSIS REFERENCE USING NASCET CRITERIA: % ICA stenosis = (1 - narrowest ICA diameter/diameter of distal cervical ICA) x 100. Mild - <50% stenosis. Moderate - 50-69% stenosis. Severe - 70-94% stenosis. Near occlusion - 95-99% stenosis. Occluded - 100% stenosis. IMPRESSION: 1. There is atherosclerosis of the proximal left internal carotid artery. There is absence of flow within the left internal carotid artery, consistent with occlusion. 2. There is atherosclerosis of the proximal right internal carotid artery, with approximately 66% stenosis. 3. There is mild stenosis of the distal left vertebral artery. Additional atherosclerotic changes are visualized of the left vertebral artery. Severe stenosis is visualized of the proximal left vertebral artery. 4. There is atherosclerosis of the bilateral subclavian arteries with moderate stenoses. 5. On series 3 image 69, there is a band of hypodensity within the right upper lobe. A filling defect in a pulmonary vessel is considered, without definitive involvement of the pulmonary artery. This can be further evaluated with CTA. 6. There is mediastinal and right hilar lymphadenopathy. A right hilar mass is visualized measuring 3.4 x 2.0 cm. There is an adjacent consolidation within the right upper lobe of the lung. Within the left upper lobe of the lung, there is a pleurally based nodule measuring 1.2 cm in diameter. Malignancy is considered. PET/CT is recommended. 7. There is severe stenosis or occlusion with reconstitution of the left external carotid artery. There is stenosis of the proximal right external carotid artery. 8. Additional CT findings described above. 01/03/18 20:50 CTA Head reviewed, shows: Right internal carotid artery: No acute findings. Intracranial segment is patent with no significant stenosis. No aneurysm. Right anterior cerebral artery: Unremarkable. No occlusion or significant stenosis. No aneurysm. Right middle cerebral artery: Unremarkable. No occlusion or significant stenosis. No aneurysm. Right posterior cerebral artery: Unremarkable. No occlusion or significant stenosis. No aneurysm. Right vertebral artery: Unremarkable as visualized. Left internal carotid artery: Suspect occluded left ICA. Absent flow left ICA through carotid canal. Minimal/decreased flow within the cavernous portion left ICA. No aneurysm. Left anterior cerebral artery: Decreased caliber left NANCY and MCA. No occlusion or significant stenosis. No aneurysm. Left middle cerebral artery: See above. Left posterior cerebral artery: Unremarkable. No occlusion or significant stenosis. No aneurysm. Left vertebral artery: Dominant. Unremarkable as visualized. Basilar artery: Unremarkable. No occlusion or significant stenosis. No aneurysm. Bones/joints: Multilevel cervical spondylosis and facet osteoarthrosis. Lungs/Soft tissues: Ovoid 2 x 3 cm right hilar soft tissue mass with right lower lobe soft tissue vs. consolidation. Lymph nodes: Mild-moderate mediastinal lymphadenopathy. IMPRESSION: 1. Occluded left ICA. 2. Decreased caliber left NANCY and MCA. 3. Ovoid 2 x 3 cm right hilar soft tissue mass with right lower lobe soft tissue vs. consolidation. -- Possible neoplasm. 01/03/18 20:[address] Ford about CTA finding. She will discuss with neuro interventionalist and call back for further discussion. 01/03/18 21:02 Dr. Samuel states she will cover pt tonight but requests to admit pt to Dr. Duggan's service 01/03/18 21:[address] Ford, who states pt can stay at [facility] for admission. Pt is not amenable for intervention. - Critical Care Critical Care Minutes: 60 minutes - Lab Interpretations Lab Results: 01/03/18 17:55 01/03/18 17:55 Lab Results 01/03/18 18:55: Blood Type Confirm A NEGATIVE 01/03/18 18:16: Urine Color Light yellow, Urine Appearance Clear, Urine pH 7.0, Ur Specific Bernie 1.020, Urine Protein >=300 H, Urine Glucose (UA) Negative, Urine Ketones Negative, Urine Blood Trace-intact H, Urine Nitrate Negative, Urine Bilirubin Negative, Urine Urobilinogen 1.0 H, Ur Leukocyte Esterase Negative, Urine RBC Negative, Urine WBC Negative, Ur Epithelial Cells 0 - 2 01/03/18 17:55: Troponin I 0.40 H* D 01/03/18 17:55: Sodium 143, Potassium 4.7, Chloride 103, Carbon Dioxide 31, Anion Gap 14, BUN 18, Creatinine 0.8, Est GFR ( Amer) > 60, Est GFR (Non- Af Amer) > 60, Random Glucose 171 H, Calcium 9.6, Magnesium 2.1, Total Bilirubin 1.1, AST 29, ALT 35, Alkaline Phosphatase 78, Total Protein 7.4, Albumin 4.1, Globulin 3.0, Albumin/Globulin Ratio 1.4 01/03/18 17:55: PT 19.9 H, INR 1.73 H, APTT 39.5 H 01/03/18 17:55: WBC 7.6, RBC 5.89, Hgb 15.4, Hct 48.7 H, MCV 82.7, MCH 26.1, MCHC 31.6, RDW 16.0 H, Plt Count 168, MPV 9.5, Gran % 69.8 H, Lymph % (Auto) 20.8 L, Terrell % (Auto) 7.6 H, Eos % (Auto) 1.3 L, Baso % (Auto) 0.5, Gran # 5.32 , Lymph # (Auto) 1.6, Terrell # (Auto) 0.6, Eos # (Auto) 0.1, Baso # (Auto) 0.04 01/03/18 17:30: Blood Type A NEGATIVE, Antibody Screen Positive, Antibody Identification Pending, BBK History Checked No verified bt - RAD Interpretation Radiology Orders: 01/03/18 17:39 HEAD W/O (CODE STROKE) [CT] Stat 01/03/18 17:41 CHEST PORTABLE [RAD] Stat 01/03/18 18:21 CTA HEAD/NECK CODE STROKE [CT] Stat - Medication Orders Current Medication Orders: Acetaminophen (Tylenol 325mg Tab) 650 mg PO Q4H PRN PRN Reason: Fever >100.5 F Alprazolam (Xanax) 0.25 mg PO BID PRN; Protocol PRN Reason: Anxiety Stop: 01/10/18 21:03 Aspirin (Ecotrin) 81 mg PO DAILY HEATHER Atorvastatin Calcium (Lipitor) 40 mg PO HS HEATHER Digoxin (Digoxin) 0.125 mg PO 1400 HEATHER Diltiazem HCl (Cardizem Cd) 300 mg PO DAILY HEATHER Gabapentin (Neurontin) 600 mg PO TID HEATHER PRN Reason: Protocol Sodium Chloride (Sodium Chloride 0.45%) 1,000 mls @ 60 mls/hr IV .[id number] HEATHER Insulin Lispro Protam/Lispro Human (Humalog Mix 75/25) 55 units SC BID HEATHER Pantoprazole Sodium (Protonix Ec Tab) 40 mg PO DAILY HEATHER Warfarin Sodium (Coumadin) 7.5 mg PO 1800 HEATHER PRN Reason: Protocol Discontinued Medications Acetaminophen (Tylenol 325mg Tab) 975 mg PO STAT STA Stop: 01/03/18 20:29 Last Admin: 01/03/18 20:41 Dose: 975 mg MAR Pain/Vitals Document 01/03/18 20:41 AD (Rec: 01/03/18 20:41 AD [id number]) Pain Reassessment Is This A Pain ReAssessment? No Presence of Pain Presence of Pain Yes Pain Scale Used Pain Scale Used Numeric Location Pain Location Body Entry Level Accountant Intensity 5 Scale Used Numeric NIHSS Scale ([place]) Time Performed: 20:22 - How Severe is the Stoke Baseline Level of Consciousness: 0=Alert LOC to Questions: 0=Both comments correct LOC to commands: 0=Obeys both correctly Best Gaze: 0=Normal Visual: 0=No visual loss Facial: 1=Minor asymmetry Motor Arm - Left: 0=No drift Motor Arm - Right: 0=No drift Motor Leg - Left: 0=No drift Motor Leg - Right: 0=No drift Limb Ataxia: 0=Absent Sensory: 1=Mild to moderate loss Best Language: 0=No aphasia Dysarthia: 1=Mild to moderate slurring Extinction & Inattention (Neglect): 0=Normal, no object Score: 3 Risk Level: Minor Stroke Risk rTPA Inclusion/Exclusion - Refusal of Treatment Patient Refused Treatment: No - Inclusion Criteria for Altepase Patient is 18 years or Older: Yes The Clinical Diagnosis of Ischemic Stroke That is Causing a Potentially Disabling Neurological Deficit: Yes Time of Onset is Well Established to be Less Than 270 Minute Before Treatment Would Begin: Yes Risk/Benefit Discussed With Patient/Family Member Present: Yes - Exclusion Criteria for Altepase Known Bleeding Diathesis Including but Not Limited to: Platelets Below 100,000/ mm,PTT Above 40 sec After Heparin Use, Current Use of Oral Anitcoagulant With INR Greater Than 1.7 or PT Greater Than 15 secs: Yes - Scribe Statement The provider has reviewed the documentation as recorded by the Mukulibjessie Larson All medical record entries made by the Mukulibjessie were at my direction and personally dictated by me. I have reviewed the chart and agree that the record accurately reflects my personal performance of the history, physical exam, medical decision making, and the department course for this patient. I have also personally directed, reviewed, and agree with the discharge instructions and disposition. Disposition/Present on Arrival - Present on Arrival Any Indicators Present on Arrival: No History of DVT/PE: No History of Uncontrolled Diabetes: No Urinary Catheter: No History Surgical Site Infection Following: None - Disposition Have Diagnosis and Disposition been Completed?: Yes Diagnosis: CVA (cerebral vascular accident) Disposition Time: 20:17 Patient Plan: Admission, Telemetry Patient Problems: Current Active Problems Problem Status Onset CVA (cerebral vascular accident) Acute Condition: STABLE
[2018-01-03 17:56] LABS: BASO # 0.04 K/mm3 (0.0-2.0); BASO % 0.5 % (0.0-3.0); EOS # 0.1 (0.0-0.7); EOS % 1.3 % (1.5-5.0); GRAN # 5.32 (1.4-6.5); GRAN % 69.8 % (50.0-68.0); HEMOGLOBIN 15.4 g/dL (12.0-16.0); INR 1.73 (0.93-1.08); LYMPH # 1.6 (1.2-3.4); LYMPH % 20.8 % (22.0-35.0); MEAN CELL VOLUME 82.7 fl (80.0-105.0); MEAN CORPUSCULAR HEMOGLOBIN 26.1 pg (25.0-35.0); MEAN CORPUSCULAR HGB CONC 31.6 g/dl (31.0-37.0); MEAN PLATELET VOLUME 9.5 fl (7.0-11.0); MONO # 0.6 (0.1-0.6); MONO % 7.6 % (1.0-6.0); PARTIAL THROMBOPLASTIN TIME 39.5 Seconds (25.1-36.5); PROTHROMBIN TIME 19.9 SECONDS (9.4-12.5); RBC 5.89 10^6/uL (3.5-6.1); WHITE BLOOD COUNT 7.6 10^3/ul (4.5-11.0)
[2018-01-03 17:58] LABS: BLOOD UREA NITROGEN 18 mg/dL (7-21)
[2018-01-03 17:59] LABS: ALBUMIN 4.1 g/dL (3.0-4.8); CALCIUM 9.6 mg/dL (8.4-10.5); GFR AFRICAN-AMERICAN > 60; GFR NON-AFRICAN AMERICAN > 60
[2018-01-03 18:00] LABS: ALT/SGPT 35 U/L (7-56); AST/SGOT 29 U/L (14-36)
[2018-01-03 18:01] LABS: ALB/GLOB RATIO 1.4 (1.1-1.8)
--- NOTE | 2018-01-03 18:07 | CT ---
PROCEDURE: CT HEAD WITHOUT CONTRAST. HISTORY: CVA COMPARISON: None available. TECHNIQUE: Axial computed tomography images were obtained through the head/brain without intravenous contrast. Radiation dose: Total exam DLP = 950 mGy-cm. This CT exam was performed using one or more of the following dose reduction techniques: Automated exposure control, adjustment of the mA and/or kV according to patient size, and/or use of iterative reconstruction technique. FINDINGS: HEMORRHAGE: No intracranial hemorrhage. BRAIN: No mass effect or edema. There is chronic encephalomalacia in the right frontal lobe. There are no acute intracranial findings VENTRICLES: Unremarkable. No hydrocephalus. CALVARIUM: Unremarkable. PARANASAL SINUSES: Unremarkable as visualized. No significant inflammatory changes. MASTOID AIR CELLS: Unremarkable as visualized. No inflammatory changes. OTHER FINDINGS: None. IMPRESSION: No acute intracranial findings
[2018-01-03 18:25] LABS: URINE APPEARANCE CLEAR (CLEAR); URINE BILIRUBIN NEGATIVE (NEGATIVE); URINE BLOOD TRACE-INTACT (NEGATIVE); URINE COLOR LIGHT YELLOW (YELLOW); URINE GLUCOSE (UA) NEGATIVE (NEGATIVE); URINE LEUKOCYTE ESTERASE NEGATIVE Leu/uL (NEGATIVE); URINE PROTEIN >=300 mg/dL (<30 mg/dL)
[2018-01-03 18:34] LABS: URINE EPITHELIAL CELLS 0 - 2 /hpf (0-5); URINE RBC NEGATIVE /hpf (0-2); URINE WBC NEGATIVE /hpf (0-6)
[2018-01-03] MEDS ORDERED: Iohexol 350 MG/100 ML VIAL ONE (18:42)
[2018-01-03] MEDS ORDERED: Sodium Chloride 0.45% 1,000 ML IV SCH (21:15)
[2018-01-03 22:17] LABS: TROPONIN I 0.37 ng/mL
[2018-01-04 08:06] LABS: ALB/GLOB RATIO 1.2 (1.1-1.8); ALBUMIN 3.8 g/dL (3.0-4.8); ALT/SGPT 31 U/L (7-56); AST/SGOT 25 U/L (14-36); BLOOD UREA NITROGEN 16 mg/dL (7-21); CALCIUM 9.5 mg/dL (8.4-10.5); GFR AFRICAN-AMERICAN > 60; GFR NON-AFRICAN AMERICAN > 60
--- NOTE | 2018-01-04 08:12 | RAD ---
HISTORY: CVA COMPARISON: 10/20/2016 FINDINGS: LUNGS: No active pulmonary disease. PLEURA: No significant pleural effusion identified, no pneumothorax apparent. CARDIOVASCULAR: Moderate cardiomegaly OSSEOUS STRUCTURES: Sternal wires VISUALIZED UPPER ABDOMEN: Normal. OTHER FINDINGS: None. IMPRESSION: No active disease.
[2018-01-04 08:21] LABS: FREE T4 1.28 ng/dL (0.78-2.19)
--- NOTE | 2018-01-04 09:02 | HP ---
HISTORY OF PRESENT ILLNESS: The patient is 77-year-old who was the patient of Dr. Duggan, came to emergency room because of confusion and some dizziness and headache. When shank sorter arrived on the scene, they saw that the patient has left facial droop. According to the daughter, she was okay when she left for work, but when she came back, daughter found her confused and disoriented. . No fever. No chills. No nausea, no vomiting or diarrhea. According to daughter, she had regular visit with professor of philosophy recently and was found to be okay. PAST MEDICAL HISTORY: 1. Significant for AFib, on anticoagulation. 2. Hypertension. 3. The patient had multiple admissions for CHF. 4. She also has history of non-insulin dependent diabetes. 5. History of DVT. 6. Chronic AFib. 7. COPD. 8. Coronary artery disease, status post open heart surgery. 9. History of CHF. ALLERGIES: SHE IS ALLERGIC TO LATEX AND SULFA. MEDICATIONS AT HOME: The patient is on diltiazem 300 daily, Coumadin 7.5 daily, potassium 10 mEq 3 times a day, Protonix 40 daily, metolazone 5 mg daily, levothyroxine 125 mcg daily, insulin 55 units twice a day, gabapentin 600 mg 3 times a day, Lasix 40 daily, digoxin 0.125 daily, Lipitor 40 mg at bedtime, Xanax 0.25 b.i.d. and nebulizer treatment. SOCIAL HISTORY: She lives with her daughter, history of smoking in remote past. PHYSICAL EXAMINATION GENERAL: She is awake and alert, but confused, disoriented. VITAL SIGNS: She is afebrile, pulse 71, respirations 18, blood pressure 145/92. LUNGS: Bilateral fair airflow. No rhonchi or crackles. HEART: S1 and S2 audible. ABDOMEN: Soft, nontender. No rebound. No guarding. EXTREMITIES: She has subtle left-sided weakness. NEUROLOGICAL: Otherwise, she is awake and alert. LABORATORY DATA: WBC is 7.6, hemoglobin 15.4, hematocrit 48.7, platelet 168, PT 19.9, INR 1.73. Chemistry, sodium 143, potassium 4.7, chloride 103, CO2 of 31, BUN 18, creatinine 0.8, blood sugar of 171, troponin is 0.40. Urinalysis shows positive protein. CT scan of the head, no acute intracranial finding. CT shows left internal carotid occlusion. ASSESSMENT AND PLAN: 1. Left facial droop. 2. Cerebrovascular accident. 3. Hypertension. 4. Chronic atrial fibrillation. 5. Hyperlipidemia. 6. Chronic obstructive pulmonary disease. PLAN: We will continue the patient on diltiazem, continue on Coumadin, . Neuro consult has been requested. The patient has positive troponin and request Dr. Sarmiento to evaluate the patient. Cassandra Samuel MD
[2018-01-04] MEDS: Pantoprazole 40 mg EC Tab PO SCH (09:08)
[2018-01-04] MEDS: diltiaZEM 300 mg/24 Hours CD Cap PO SCH (09:08)
[2018-01-04] MEDS: Levothyroxine 125 MCG TAB PO SCH (09:28)
--- NOTE | 2018-01-04 09:41 | CT ---
PROCEDURE: CT Angiography of the neck with contrast HISTORY: CVA COMPARISON: None available. TECHNIQUE: Contiguous axial images of the neck were obtained from the level of the skull-base to the superior mediastinum in the arteriographic phase of enhancement. Coronal and sagittal reformats or also generated. IV contrast dose: 92 cc of Omni 350 Radiation Dose - DLP: 476 mGy-cm This CT exam was performed using one or more of the following dose reduction techniques: Automated exposure control, adjustment of the mA and/or kV according to patient size, and/or use of iterative reconstruction technique. FINDINGS: RIGHT CAROTID ARTERIES: There is a calcified plaque in the proximal right internal carotid. There is a moderate degree of stenosis between 50 and 69 percent. LEFT CAROTID ARTERIES: There is complete occlusion of the left internal carotid at its origin. VERTEBRAL ARTERIES: Right Vertebral Artery: Normal. Left Vertebral Artery: Normal. OTHER FINDINGS: There is a chronic fracture of the dens. The aortic arch and subclavian arteries are heavily calcified. There is mediastinal and right hilar adenopathy. Areas of consolidation are seen in both the right upper lobe and left upper lobe. Findings suspicious for lung carcinoma. IMPRESSION: Occlusion of the left internal carotid at its origin. Moderate stenosis of the proximal right internal carotid with heavily calcified plaque. Chronic fracture of the dens. Mediastinal and right hilar adenopathy with areas of consolidation in both upper lobes. Findings suspicious for lung carcinoma CT Angiography of the Brain. HISTORY: CVA COMPARISON: None available. TECHNIQUE: CT angiography of the intracranial arteries was performed. Coronal and sagittal maximum intensity projection reformated images were generated. This CT exam was performed using one or more of the following dose reduction techniques: Automated exposure control, adjustment of the mA and/or kV according to patient size, and/or use of iterative reconstruction technique. FINDINGS: INTERNAL CEREBRAL ARTERIES: Occlusion of the left internal carotid. ANTERIOR CEREBRAL ARTERIES: Unremarkable. A1 and A2 segments are widely patent. Smaller distal branches unremarkable, as visualized. MIDDLE CEREBRAL ARTERIES: Unremarkable. M1 and M2 segments are widely patent. Perisylvian branches grossly symmetric. POSTERIOR CIRCULATION: Basilar Artery: Unremarkable. Distal Vertebral Arteries: Unremarkable. Posterior Cerebral Arteries: Unremarkable. Posterior Inferior Cerebellar Arteries: Unremarkable. ANEURYSM/ VASCULAR MALFORMATIONS: None. OTHER FINDINGS: The report concurs with the preliminary [facility] report
[2018-01-04] MEDS ORDERED: Insulin Lispro (humaLOG) MIX 75/25(10 ml) SC SCH (10:00)
--- NOTE | 2018-01-04 10:15 | CON ---
DATE: 01/04/2018 CONSULTATION INDICATIONS: Altered mental status, difficulty speaking, rule out stroke. HISTORY OF PRESENT ILLNESS: This is a 77-year-old woman, known to me with admission through the emergency room yesterday. She presented with confusion, altered mental status, facial droop, difficulty speaking. Initial CAT scan was unremarkable. She has chronic AFib and is on warfarin. The INR was 1.7. This morning, she is resting comfortably in bed on telemetry. She complains of pain in the left leg. Her speaking is better. She is alert and oriented. There is no chest pain, shortness of breath, orthopnea, PND, syncope, vertigo, palpitations, edema, fever, chills, cough, sputum production, hemoptysis, abdominal pain, nausea, vomiting, diarrhea, constipation, melena. PAST MEDICAL HISTORY: Complex. She has coronary artery disease, remote coronary bypass surgery. She has severe LV dysfunction with ejection fraction about 25%. She has congestive heart failure and severe COPD, on home O2. She has chronic AFib, on warfarin therapy. She is a former smoker with diabetes, prior stroke, pancreatitis, history of breast cancer with lumpectomy. She had appendectomy, gallbladder surgery and hysterectomy. In 07/2016, an echocardiogram demonstrated severe LV dysfunction with severe global hypokinesis. Ejection fraction about 25%. Mild to moderate MR, moderate TR and moderate pulmonary hypertension. MEDICATIONS AT THE TIME OF ADMISSION: Include albuterol, diltiazem, warfarin, digoxin, Humalog, Lasix, Lipitor, Neurontin, Synthroid, Xanax p.r.n. SOCIAL HISTORY: She lives at home. She is ambulatory, but limited. She does not smoke cigarettes currently. She does not drink alcohol significantly. FAMILY HISTORY: Noncontributory. REVIEW OF SYSTEMS: Ten-point review of systems is otherwise unremarkable except as noted above. PHYSICAL EXAMINATION: GENERAL: She is a well-developed elderly woman, lying in bed on telemetry, in no acute distress. VITAL SIGNS: She is in atrial fibrillation at 68 beats per minute. She is afebrile. Blood pressure 125/65, respirations 18-20, O2 sat 92-95% on nasal cannula. HEENT: Reveals no neck vein distention, thyromegaly, carotid bruits. Mucous membranes moist. Conjunctivae pink. NECK: Supple. LUNGS: Lung mohan clear. HEART: Examination of the heart revealed an irregular rhythm. Normal first and second heart sounds. Systolic murmur along the left sternal border. PMI displaced laterally. ABDOMEN: Soft. Bowel sounds present. No mass, organomegaly, tenderness, rebound or guarding. EXTREMITIES: Revealed no cyanosis, clubbing or edema. NEUROLOGICAL: She is awake, alert, oriented. Her speech seemed fluent. PSYCHIATRIC: Normal as to mood and affect. SKIN: Warm and dry. No rash or cellulitis. LABORATORY DATA AND IMAGING: EKG shows atrial fibrillation, poor R-wave progression. ST-T-wave changes. No significant change from the prior EKG. A CT scan of the head shows no acute intracranial findings. A portable chest x-ray reveals no active disease. White count and platelet count normal. Hemoglobin 15.4, hematocrit 48.7. PT 19.9, INR 1.73, PTT 39.5. Electrolytes: BUN, creatinine, blood sugar unremarkable. LFTs unremarkable. Magnesium normal. Troponin 0.4 and 0.37. Total cholesterol 172, LDL 104, HDL 33, triglycerides 145. Free T4 normal. TSH low at 0.12. Urinalysis is noted. IMPRESSION: Leny Harrell is a 77-year-old woman, admitted with neurologic symptoms, possibly stroke, although CT scan initially is unremarkable. The troponins are mildly elevated. She is in atrial fibrillation. Her INR is a bit subtherapeutic on admission. Her speech has improved. She is complaining of discomfort in the right leg. At this time, she is admitted to telemetry. She will have a neurologic evaluation. We will monitor neurologic signs. She is on warfarin, diltiazem, digoxin, aspirin, insulin, Lipitor, Neurontin, pantoprazole, Synthroid, Tylenol. I have reviewed her old records. We will monitor inputs and outputs. Check stool for occult blood. Monitor INRs daily. A CT angiogram has been ordered. I will follow along with you. I will make additional recommendations based on her clinical course. Clayton Sarmiento MD [facility]
[2018-01-04] MEDS ORDERED: Sodium Chloride 0.9% 1,000 ML IV SCH (10:45)
--- NOTE | 2018-01-04 10:45 | CARD ---
APPROVED REPORT EKG Measurement Heart [id number] <Conclusion> Atrial fibrillation Rightward axis RSR' or QR pattern in V1 suggests right ventricular conduction delay ST & T wave abnormality, consider inferolateral ischemia No change
[2018-01-04] MEDS: Digoxin 125 mcg (0.125 mg) Tab PO SCH (13:47)
[2018-01-04] MEDS: Sodium Chloride 0.9% 1,000 ML IV SCH (13:50)
--- NOTE | 2018-01-04 14:27 | PN ---
DATE: 01/04/2018 SUBJECTIVE: The patient is 77 years old, not a very good historian. She was brought to emergency room because of altered mental status and some facial droop with history of hypertension and chronic AFib, on anticoagulation. PHYSICAL EXAMINATION: GENERAL: She is awake and alert, able to communicate, answer simple question. VITAL SIGNS: She is afebrile, pulse 68, respirations 18, blood pressure 125/65. LUNGS: Bilateral fair airflow. No rhonchi or crackle. HEART: S1 and S2 audible. ABDOMEN: Soft. Nontender. No rebound. No guarding. NEUROLOGICAL: She is awake and alert, able to communicate. LABORATORY EXAM: Blood sugar is 180, troponin 0.31, yesterday was 0.40. Today's sodium 142, potassium 4.3, chloride 104, CO2 of 29, BUN 16, creatinine 0.8, blood sugar of 142, TSH 0.12. Urinalysis shows trace blood and positive proteins. CTA of the neck shows left internal carotid occlusion. ASSESSMENT: 1. Questionable stroke. 2. Chronic atrial fibrillation. 3. Left internal carotid occlusion. 4. Hypertension. 5. Hyperlipidemia. 6. Hypothyroidism. 7. Anxiety disorder. PLAN: We will continue the patient on Coumadin. She will receive 10 mg today. We will continue on Cardizem. She is on digoxin. We will order for dig level. Monitor blood sugar. Continue her on IV fluids. I will cut down her fluids from 100 mL to 60 mL and rather encourage her p.o. intake. Request for physical therapy. We will follow up PT/INR in the a.m. Cassandra Samuel MD
[2018-01-04] MEDS: Insulin Lispro (humaLOG) MIX 75/25(10 ml) SC SCH ×2 (17:49→22:04)
--- NOTE | 2018-01-04 21:55 | CP.PCM.CON ---
History of Present Illness - History of Present Illness History of Present Illness: 77 yr old woman who presented as a code stroke last night, and deemed to not be a TPA candidate as she is on coumadin and has a history of atrial fibrillation. Yesterday, patient had a spell of confusion with dysarthria that lasted for several minutes and persisted in the er. CT scan was done and shows a subacute/chronic right M1/M2 distribution ischemic stroke, with cTA showing left ica occlusion, that appears to be complete and rt. ica occlusion that is 66 %. Today, she continues to be aphasic. PMH/PSH: afib, shingles, hypertension, chf, niddm, dvt, copd, cad s/p cabg FH/SH: as per chart. All: latex and sulfa on exam; aaox3. PERRL. Cn 2-12 normal except for mild left facial droop. Speech dysarthric with some naming difficulties. Motor; left ue 4/5, left lle: 4+/5 limited by effort sensory; decreased ft, pin in left upper and lower extremity all else normal gait not tested. +2 ul and ll dtr Past Patient History - Infectious Disease Hx of Infectious Diseases: None - Tetanus Immunizations Tetanus Immunization: Unknown - Past Social History Smoking Status: Former Smoker - CARDIAC Hx Cardiac Disorders: Yes (Afib) Hx Congestive Heart Failure: Yes Hx Hypertension: Yes - PULMONARY Hx Chronic Obstructive Pulmonary Disease (COPD): Yes (+Home nebulizer) - NEUROLOGICAL HX Cerebrovascular Accident: Yes (speech impediment; word-finding difficulty) - HEENT Hx HEENT Problems: Yes ([place]/glasses) - RENAL Hx Chronic Kidney Disease: No - ENDOCRINE/METABOLIC Hx Diabetes Mellitus Type 2: Yes - HEMATOLOGICAL/ONCOLOGICAL Hx Shingles: Yes (H/O IN JULY, left face) - INTEGUMENTARY Hx Dermatological Problems: No - MUSCULOSKELETAL/RHEUMATOLOGICAL Hx Falls: Yes - GASTROINTESTINAL Hx Gastrointestinal Disorders: Yes (ULCER,GALL BLADDER DISEASE,CHOLECYSTECTOMY,) - GENITOURINARY/GYNECOLOGICAL Hx Genitourinary Disorders: No - PSYCHIATRIC Hx Psychophysiologic Disorder: Yes Hx Anxiety: Yes Hx Depression: No Hx Emotional Abuse: No Hx Physical Abuse: No Hx Substance Use: No - SURGICAL HISTORY Hx Appendectomy: Yes Hx Cholecystectomy: Yes Hx Coronary Stent: Yes (X1) Hx Mastectomy: Yes (left mastectomy) Hx Open Heart Surgery: Yes Other/Comment: QUADRUPLE BYPASS,OPEN HEART,CARDIAC STENT X 1 - ANESTHESIA Hx Anesthesia: Yes Hx Anesthesia Reactions: No Hx Malignant Hyperthermia: No Meds Allergies/Adverse Reactions: Allergies Allergy/AdvReac Type Severity Reaction Status Date / Time latex Allergy RASH Verified 10/20/16 12:44 Sulfa (Sulfonamide Allergy RASH Verified 10/20/16 12:44 Antibiotics) rubber Allergy RASH Uncoded 10/20/16 12:44 tape Allergy RASH Uncoded 10/20/16 12:44 - Medications Medications: Current Medications Acetaminophen (Tylenol 325mg Tab) 650 mg PO Q4H PRN PRN Reason: Fever >100.5 F Alprazolam (Xanax) 0.25 mg PO BID PRN; Protocol PRN Reason: Anxiety Stop: 01/10/18 21:03 Aspirin (Ecotrin) 81 mg PO DAILY [facility] Last Admin: 01/04/18 09:08 Dose: 81 mg Atorvastatin Calcium (Lipitor) 40 mg PO HS [facility] Last Admin: 01/03/18 23:07 Dose: 40 mg Digoxin (Digoxin) 0.125 mg PO 1400 [facility] Diltiazem HCl (Cardizem Cd) 300 mg PO DAILY [facility] Last Admin: 01/04/18 09:08 Dose: 300 mg Gabapentin (Neurontin) 600 mg PO TID [facility] PRN Reason: Protocol Last Admin: 01/04/18 09:07 Dose: 600 mg Sodium Chloride (Sodium Chloride 0.45%) 1,000 mls @ 60 mls/hr IV .[id number] [facility] Last Admin: 01/03/18 21:47 Dose: 60 mls/hr Insulin Lispro Protam/Lispro Human (Humalog Mix 75/25) 55 units SC BID [facility] Last Admin: 01/04/18 09:08 Dose: Not Given Levothyroxine Sodium (Synthroid) 125 mcg PO 0600 [facility] Last Admin: 01/04/18 09:28 Dose: 125 mcg Pantoprazole Sodium (Protonix Ec Tab) 40 mg PO DAILY [facility] Last Admin: 01/04/18 09:08 Dose: 40 mg Warfarin Sodium (Coumadin) 7.5 mg PO 1800 [facility] PRN Reason: Protocol Results - Vital Signs Recent Vital Signs: Last Vital Signs Temp 97.9 F 01/04/18 06:00 Pulse 68 01/04/18 06:00 Resp 18 01/04/18 06:00 BP 125/65 01/04/18 06:00 Pulse Ox 92 L 01/04/18 06:00 - Labs Result Diagrams: 01/03/18 17:55 01/04/18 06:30 Labs: Laboratory Results - last 24 hr 01/03/18 01/03/18 01/04/18 21:35 21:59 06:30 Sodium 142 Potassium 4.3 Chloride 104 Carbon Dioxide 29 Anion Gap 14 BUN 16 Creatinine 0.8 Est GFR ( Amer) > 60 Est GFR (Non-Af Amer) > 60 POC Glucose (mg/dL) 149 H Random Glucose 142 H Calcium 9.5 Total Bilirubin 1.2 AST 25 ALT 31 Alkaline Phosphatase 72 Troponin I 0.37 H* Total Protein 7.1 Albumin 3.8 Globulin 3.3 Albumin/Globulin Ratio 1.2 Triglycerides 145 Cholesterol 172 LDL Cholesterol Direct 104 HDL Cholesterol 33 Free T4 TSH 3rd Generation 01/04/18 01/04/18 06:30 07:14 Sodium Potassium Chloride Carbon Dioxide Anion Gap BUN Creatinine Est GFR ( Amer) Est GFR (Non-Af Amer) POC Glucose (mg/dL) 132 H Random Glucose Calcium Total Bilirubin AST ALT Alkaline Phosphatase Troponin I Total Protein Albumin Globulin Albumin/Globulin Ratio Triglycerides Cholesterol LDL Cholesterol Direct HDL Cholesterol Free T4 1.28 TSH 3rd Generation 0.12 L Assessment & Plan - Assessment and Plan (Free Text) Assessment: 77 yr old woman with ischemic new stroke most likely in [place] area with extension into internal capsule, that is new, although she has an old stroke in similar territory. She is not a candidate for intervention as per dr. patel. PLan; 1. Continue coumadin. Keep inr therapeutic. 2. PLease keep bp elevated. 3. pt st ot 4. dvt prophylaxis with venodynes. 5. MRI brain without mari. Thank you Dr. Ford
[2018-01-05] MEDS: Levothyroxine 125 MCG TAB PO SCH (05:26)
[2018-01-05] MEDS: Sodium Chloride 0.9% 1,000 ML IV SCH ×2 (05:58→14:17)
[2018-01-05 08:04] LABS: BASO # 0.02 K/mm3 (0.0-2.0); BASO % 0.3 % (0.0-3.0); EOS # 0.2 (0.0-0.7); EOS % 2.5 % (1.5-5.0); GRAN # 5.31 (1.4-6.5); GRAN % 68.5 % (50.0-68.0); HEMOGLOBIN 13.6 g/dL (12.0-16.0); LYMPH # 1.6 (1.2-3.4); LYMPH % 20.9 % (22.0-35.0); MEAN CELL VOLUME 82.9 fl (80.0-105.0); MEAN CORPUSCULAR HEMOGLOBIN 25.9 pg (25.0-35.0); MEAN CORPUSCULAR HGB CONC 31.2 g/dl (31.0-37.0); MEAN PLATELET VOLUME 9.9 fl (7.0-11.0); MONO # 0.6 (0.1-0.6); MONO % 7.8 % (1.0-6.0); RBC 5.26 10^6/uL (3.5-6.1); RED CELL DISTRIBUTION WIDTH 15.7 % (11.5-14.5); WHITE BLOOD COUNT 7.7 10^3/ul (4.5-11.0)
[2018-01-05 08:13] LABS: INR 2.22 (0.93-1.08)
[2018-01-05] MEDS: Insulin Lispro (humaLOG) MIX 75/25(10 ml) SC SCH ×4 (08:13→22:31)
--- NOTE | 2018-01-05 08:37 | CP.PCM.PN ---
Subjective - Date & Time of Evaluation Date of Evaluation: 01/05/18 Time of Evaluation: 07:00 - Subjective Subjective: Stable on 2R. No CP or SOB. Speech is nearly normal she thinks. V/S noted. AF PE: Lungs: rhonchi Cor.: S1S2 Abd.: soft Ext.: no edema Neuro.: alert I/O= 2080/700 Labs: INR = 2.22, trop yest. 0.31 CTA Head and neck noted: occ LICA, mod. NICK, mediastinal and hilar adenopathy with apical infiltrates: ? cancer Objective - Vital Signs/Intake and Output Vital Signs (last 24 hours): Temp Pulse Resp BP Pulse Ox 98.8 F 58 L 19 138/55 L 94 L 01/05/18 05:43 01/05/18 05:43 01/05/18 05:43 01/05/18 05:43 01/05/18 05:43 Intake and Output: 01/05/18 01/05/18 06:59 18:59 Intake Total 1540 Output Total 700 Balance 840 - Medications Medications: Current Medications Acetaminophen (Tylenol 325mg Tab) 650 mg PO Q4H PRN PRN Reason: Fever >100.5 F Alprazolam (Xanax) 0.25 mg PO BID PRN; Protocol PRN Reason: Anxiety Stop: 01/10/18 21:03 Aspirin (Ecotrin) 81 mg PO DAILY [facility] Last Admin: 01/04/18 09:08 Dose: 81 mg Atorvastatin Calcium (Lipitor) 40 mg PO HS [facility] Last Admin: 01/04/18 22:04 Dose: 40 mg Digoxin (Digoxin) 0.125 mg PO 1400 [facility] Last Admin: 01/04/18 13:47 Dose: Not Given Diltiazem HCl (Cardizem Cd) 300 mg PO DAILY [facility] Last Admin: 01/04/18 09:08 Dose: 300 mg Gabapentin (Neurontin) 600 mg PO TID [facility] PRN Reason: Protocol Last Admin: 01/04/18 17:50 Dose: 600 mg Sodium Chloride (Sodium Chloride 0.9%) 1,000 mls @ 60 mls/hr IV .[id number] [facility] Last Admin: 01/05/18 05:58 Dose: Not Given Insulin Lispro Protam/Lispro Human (Humalog Mix 75/25) 0 units SC ACHS [facility] PRN Reason: Protocol Last Admin: 01/05/18 08:13 Dose: 1 units Levothyroxine Sodium (Synthroid) 125 mcg PO 0600 [facility] Last Admin: 01/05/18 05:26 Dose: 125 mcg Pantoprazole Sodium (Protonix Ec Tab) 40 mg PO DAILY [facility] Last Admin: 01/04/18 09:08 Dose: 40 mg Warfarin Sodium (Coumadin) 7.5 mg PO 1800 [facility] PRN Reason: Protocol - Labs Labs: 01/05/18 07:30 01/04/18 06:30 PT 26.0 SECONDS (9.4-12.5) H 01/05/18 07:20 INR 2.22 (0.93-1.08) H 01/05/18 07:20 APTT 39.5 Seconds (25.1-36.5) H 01/03/18 17:55 Assessment and Plan - Assessment and Plan (Free Text) Assessment: AMS/abn. speech/Recent CVA/occluded LICA with mod. NICK stenosis on CTA H/O CVA CAD/CABG/sev. LVD Severe COPD/Home O2 Abd CTA: mediastinal and hilar adenopathy, apical infiltrates, R/O cancer Chronic AF, on warfarin Former Smoker H/O breast cancer with lumpectomy Mod. MR/TR/PH on echo 08/13 Diabetes Pancreatitis S/P Sandeep., GB surgery, hysterectomy Plan: As per neuro.: MRI ordered Consider CT chest: ? cancer in the chest Monitor INRs, labs, I/O, neuro signs, sats., etc. Check echo D/C IVF Will follow
[2018-01-05] MEDS ORDERED: Iohexol 350 MG/100 ML VIAL ONE (08:45)
[2018-01-05 09:01] LABS: ALBUMIN 3.2 g/dL (3.0-4.8); ALT/SGPT 28 U/L (7-56); AST/SGOT 18 U/L (14-36); BLOOD UREA NITROGEN 23 mg/dL (7-21); GFR AFRICAN-AMERICAN > 60; GFR NON-AFRICAN AMERICAN > 60
--- NOTE | 2018-01-05 10:26 | PN ---
DATE: 01/05/2018 This is a 77-year-old white female with history of chronic atrial fibrillation, CVA in the past, a bleed in the past also. The patient is now coming home, came in with INR of 1.73. The patient had some change in mental status, confusion, disorientation and worsening speech, was felt by Neurology to have new stroke ____ area. The patient is a DNR/DNI by the family. The patient was restarted on her Coumadin. Her INR is improved today. Vital signs are stable. Temperature is 98.8, blood pressure 138/55, pulse is 58. The patient is seen consultation by Dr. Sarmiento and also by Dr. Ford from Neurology. 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 She is also complaining of right leg pain, which is sensitive to touch and hyperesthesia. The patient will start some physical therapy and occupational therapy, have another MRI of the brain and other scans of the brain and continue on Coumadin. Kosta Duggan MD
--- NOTE | 2018-01-05 10:42 | MRI ---
PROCEDURE: MRI BRAIN WITHOUT CONTRAST HISTORY: r/o CVA COMPARISON: 01/03/2018 TECHNIQUE: Multiplanar, multisequence MR images of the brain were obtained without intravenous contrast enhancement. FINDINGS: HEMORRHAGE: None DWI: No evidence of an acute or early subacute infarction. BRAIN PARENCHYMA: No mass effect or edema. There is an old infarct in the right frontal lobe with cystic encephalomalacia and laminar necrosis. There are no acute intracranial findings VENTRICLES: Unremarkable. No hydrocephalus. CRANIUM: Unremarkable. ORBITS: Grossly unremarkable. PARANASAL SINUSES/MASTOIDS: Clear VASCULAR SYSTEM: Skull base flow voids intact. OTHER FINDINGS: None. IMPRESSION: There is an old infarct in the right frontal lobe with cystic encephalomalacia and laminar necrosis. There are no acute intracranial findings
--- NOTE | 2018-01-05 11:37 | CT ---
PROCEDURE: CT Chest with contrast HISTORY: r/o lung CA COMPARISON: None. TECHNIQUE: Contiguous axial images were obtained through the chest with intravenous contrast enhancement. Sagittal and coronal reconstructions were performed. IV contrast: 100 cc of Omni 350 Radiation dose (DLP): 421 mGy-cm. This CT exam was performed using one or more of the following dose reduction techniques: Automated exposure control, adjustment of the mA and/or kV according to patient size, and/or use of iterative reconstruction technique. FINDINGS: LUNGS: There is a right upper lobe perihilar lung mass measuring 4 x 1.5 by 1.8 cm in size. There is also right hilar adenopathy and mediastinal adenopathy. There is a 2.4 cm pretracheal lymph node and multiple lymph nodes in the aortopulmonary window. MEDIASTINUM: Unremarkable thoracic aorta. No aneurysm or dissection. There is mild cardiomegaly. Coronary artery calcifications are seen. Main pulmonary artery unremarkable. No vascular congestion. PLEURA: No pleural fluid. No pneumothorax. BONES: Sternal wires. No evidence of metastatic disease. 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 OTHER FINDINGS: None. IMPRESSION: There is a right upper lobe perihilar lung mass measuring 4 x 1.5 by 1.8 cm in size. There is also right hilar adenopathy and mediastinal adenopathy. There is a 2.4 cm pretracheal lymph node and multiple lymph nodes in the aortopulmonary window.
[2018-01-05] MEDS: Pantoprazole 40 mg EC Tab PO SCH (12:07)
[2018-01-05] MEDS: Oxycodone/Acetaminophen 2.5/325 mg Tab PO PRN ×2 (12:07→23:28)
[2018-01-05] MEDS: diltiaZEM 300 mg/24 Hours CD Cap PO SCH (12:08)
[2018-01-05] MEDS ORDERED: Magnesium 2 gm/50 ml NS 2 GM/50 ML BAG IVPB ONE (12:09)
--- NOTE | 2018-01-05 12:58 | CP.PCM.PN ---
Subjective - Date & Time of Evaluation Date of Evaluation: 01/05/18 Time of Evaluation: 12:57 - Subjective Subjective: Ms. Harrell was seen and examine at the bedside. She is alert,oriented complains of left temporal pain radiating to the left parietal area with pain scale 9/10. She further describes as sharp pain. She is able to follow simple commands with bilateral lower extremities very sensitive to touch. MRI of the brain showed old infarct in the right frontal lobe with cystic encephalomalacia and laminar necrosis. There is no acute intracranial findings. There was no untoward events overnight. Objective - Vital Signs/Intake and Output Vital Signs (last 24 hours): Temp Pulse Resp BP Pulse Ox 97.1 F L 54 L 19 151/50 H 94 L 01/05/18 12:00 01/05/18 12:00 01/05/18 12:00 01/05/18 12:00 01/05/18 05:43 Intake and Output: 01/05/18 01/05/18 06:59 18:59 Intake Total 1540 Output Total 700 Balance 840 - Medications Medications: Current Medications Acetaminophen (Tylenol 325mg Tab) 650 mg PO Q4H PRN PRN Reason: Fever >100.5 F Alprazolam (Xanax) 0.25 mg PO BID PRN; Protocol PRN Reason: Anxiety Stop: 01/10/18 21:03 Aspirin (Ecotrin) 81 mg PO DAILY [facility] Last Admin: 01/05/18 12:08 Dose: 81 mg Atorvastatin Calcium (Lipitor) 40 mg PO HS [facility] Last Admin: 01/04/18 22:04 Dose: 40 mg Digoxin (Digoxin) 0.125 mg PO 1400 [facility] Last Admin: 01/04/18 13:47 Dose: Not Given Diltiazem HCl (Cardizem Cd) 300 mg PO DAILY [facility] Last Admin: 01/05/18 12:08 Dose: 300 mg Gabapentin (Neurontin) 600 mg PO TID [facility] PRN Reason: Protocol Last Admin: 01/05/18 12:07 Dose: 600 mg Sodium Chloride (Sodium Chloride 0.9%) 1,000 mls @ 60 mls/hr IV .[id number] [facility] Last Admin: 01/05/18 05:58 Dose: Not Given Magnesium 2 gm/50 ml NS (Magnesium Sulfate 2 Gm/50 Ml Ns) 2 gm in 50 mls @ 50 mls/hr IVPB ONCE ONE Stop: 01/05/18 13:08 Last Admin: 01/05/18 12:35 Dose: 50 mls/hr Valproate Sodium 500 mg/ (Sodium Chloride) 105 mls @ 100 mls/hr IVPB ONCE ONE Stop: 01/05/18 13:12 Insulin Lispro Protam/Lispro Human (Humalog Mix 75/25) 0 units SC ACHS [facility] PRN Reason: Protocol Last Admin: 01/05/18 12:38 Dose: 2 units Levothyroxine Sodium (Synthroid) 125 mcg PO 0600 [facility] Last Admin: 01/05/18 05:26 Dose: 125 mcg Oxycodone/Acetaminophen (Percocet 2.5/325 Mg Tab) 1 tab PO Q6H PRN PRN Reason: Pain, moderate (4-7) Last Admin: 01/05/18 12:07 Dose: 1 tab Pantoprazole Sodium (Protonix Ec Tab) 40 mg PO DAILY [facility] Last Admin: 01/05/18 12:07 Dose: 40 mg Warfarin Sodium (Coumadin) 7.5 mg PO 1800 [facility] PRN Reason: Protocol - Labs Labs: 01/05/18 07:30 01/05/18 07:30 PT 26.0 SECONDS (9.4-12.5) H 01/05/18 07:20 INR 2.22 (0.93-1.08) H 01/05/18 07:20 APTT 39.5 Seconds (25.1-36.5) H 01/03/18 17:55 - Constitutional Appears: No Acute Distress - Head Exam Head Exam: NORMAL INSPECTION - Eye Exam Pupil Exam: PERRL - Neurological Exam Neurological Exam: Alert, Awake, Oriented x3 Neuro motor strength exam: Left Upper Extremity: 4, Right Upper Extremity: 5, Left Lower Extremity: 4, Right Lower Extremity: 4 Additional comments: alert, oriented in all spheres, follows commands Assessment and Plan (1) History of CVA (cerebrovascular accident) Assessment & Plan: Case discussed with Dr. Castro, continue all current medical, physical, occupational, and speech therapies. Recommend hydration, blood pressure control. Status: Acute (2) Headache Assessment & Plan: Case discussed with Dr. Castro, recommend magnesium sulfate 2 gm IVPB for one dose, decadron 10 mg IVPB for one dose and depakote 500 mg IVPB for one dose. Status: Acute
[2018-01-05] MEDS: Digoxin 125 mcg (0.125 mg) Tab PO SCH (14:32)
[2018-01-05 14:33] VITALS: PULSE 62
[2018-01-05] MEDS: Valproate 500 MG in Sodium Chloride 0.9% 100 ML IVPB ONE ×2 (14:38→15:38)
[2018-01-06] MEDS: Levothyroxine 125 MCG TAB PO SCH (05:51)
[2018-01-06 07:18] LABS: INR 2.19 (0.93-1.08); PROTHROMBIN TIME 25.6 SECONDS (9.4-12.5)
[2018-01-06] MEDS: Insulin Lispro (humaLOG) MIX 75/25(10 ml) SC SCH ×2 (07:47→12:11)
[2018-01-06] MEDS: Oxycodone/Acetaminophen 2.5/325 mg Tab PO PRN ×2 (08:10→20:32)
--- NOTE | 2018-01-06 08:19 | CP.PCM.PN ---
Subjective - Date & Time of Evaluation Date of Evaluation: 01/06/18 Time of Evaluation: 07:00 - Subjective Subjective: Stable on 2R. No CP or SOB. + Headache. Mild confusion noted last night. V/S noted. AF with slow rate, 30's at times. Currently 37 BPM. PE: Lungs: rhonchi Cor.: S1S2, irreg. Abd.: soft Ext.: no edema Neuro.: alert I/O= 2490/3100 Labs: INR = 2.19, dig.= 0.7 CTA Head and neck noted: occ LICA, mod. NICK, mediastinal and hilar adenopathy with apical infiltrates: ? cancer CT Chest noted: Lung mass with diffuse adenopathy Objective - Vital Signs/Intake and Output Vital Signs (last 24 hours): Temp Pulse Resp BP Pulse Ox 97.8 F 43 L 18 112/40 L 95 01/06/18 06:00 01/06/18 06:00 01/06/18 06:00 01/06/18 06:00 01/06/18 06:00 Intake and Output: 01/06/18 01/06/18 06:59 18:59 Intake Total 1020 Output Total 600 Balance 420 - Medications Medications: Current Medications Acetaminophen (Tylenol 325mg Tab) 650 mg PO Q4H PRN PRN Reason: Fever >100.5 F Alprazolam (Xanax) 0.25 mg PO BID PRN; Protocol PRN Reason: Anxiety Stop: 01/10/18 21:03 Aspirin (Ecotrin) 81 mg PO DAILY [facility] Last Admin: 01/05/18 12:08 Dose: 81 mg Atorvastatin Calcium (Lipitor) 40 mg PO HS [facility] Last Admin: 01/05/18 22:33 Dose: 40 mg Digoxin (Digoxin) 0.125 mg PO 1400 [facility] Last Admin: 01/05/18 14:32 Dose: 0.125 mg Diltiazem HCl (Cardizem Cd) 300 mg PO DAILY [facility] Last Admin: 01/05/18 12:08 Dose: 300 mg Gabapentin (Neurontin) 600 mg PO TID [facility] PRN Reason: Protocol Last Admin: 01/05/18 17:30 Dose: 600 mg Sodium Chloride (Sodium Chloride 0.9%) 1,000 mls @ 50 mls/hr IV .Q20H [facility] Last Admin: 01/05/18 14:17 Dose: 50 mls/hr Insulin Lispro Protam/Lispro Human (Humalog Mix 75/25) 0 units SC ACHS [facility] PRN Reason: Protocol Last Admin: 01/06/18 07:47 Dose: 4 units Levothyroxine Sodium (Synthroid) 125 mcg PO 0600 [facility] Last Admin: 01/06/18 05:51 Dose: 125 mcg Oxycodone/Acetaminophen (Percocet 2.5/325 Mg Tab) 1 tab PO Q6H PRN PRN Reason: Pain, moderate (4-7) Last Admin: 01/05/18 23:28 Dose: 1 tab Pantoprazole Sodium (Protonix Ec Tab) 40 mg PO DAILY [facility] Last Admin: 01/05/18 12:07 Dose: 40 mg Warfarin Sodium (Coumadin) 7.5 mg PO 1800 [facility] PRN Reason: Protocol Last Admin: 01/05/18 19:46 Dose: 7.5 mg - Labs Labs: 01/05/18 07:30 01/05/18 07:30 PT 25.6 SECONDS (9.4-12.5) H 01/06/18 06:30 INR 2.19 (0.93-1.08) H 01/06/18 06:30 APTT 39.5 Seconds (25.1-36.5) H 01/03/18 17:55 Assessment and Plan - Assessment and Plan (Free Text) Assessment: AMS/abn. speech/Recent CVA/occluded LICA with mod. NICK stenosis on CTA H/O CVA AF with slow VR CAD/CABG/sev. LVD Severe COPD/Home O2 Abd CT Chest: mediastinal and hilar adenopathy, lung mass, R/O cancer Chronic AF, on warfarin Former Smoker H/O breast cancer with lumpectomy Mod. MR/TR/PH on echo 08/13 Diabetes Pancreatitis S/P Sandeep., GB surgery, hysterectomy DNR/DNI noted Plan: Reduce cardizem to 180/day. Hold digoxin. Monitor INRs, labs, I/O, neuro signs, sats., tel., etc. As per Dr. Duggan, Neuro. Pulm/Onc Evals Will check echo Will follow
[2018-01-06] MEDS: diltiaZEM 180 mg/24 Hours CD Cap PO SCH (09:17)
[2018-01-06] MEDS: Pantoprazole 40 mg EC Tab PO SCH (09:18)
--- NOTE | 2018-01-06 09:26 | PN ---
DATE: 01/06/2018 A 77-year-old white female admitted to the hospital with change in mental status, confusion, possible stroke although the MRI was negative. The patient was found on CTA of the neck to have some type of an abnormality in her upper chest. A dedicated CT of the chest showed a metastatic primary lung cancer with adenopathy. This was discussed with the patient's family. At this point, because of the patient's history of CVAs and COPD, there is a right upper lobe perihilar lung mass measuring 4 x 1.5 x 1.8 hilar adenopathy, mediastinal adenopathy, pretracheal lymph nodes, multiple lymph nodes in aortopulmonary window. The patient's family has requested not to disclose this information to the patient and to continue conservative therapy, continue her anticoagulation and to transfer her to TCU for rehab. The patient is still having severe neuropathic pain in the right leg. Vital signs are stable. She is more awake and alert. Her speech is dysarthric, but more fluent today. Plan is for possible TCU and progress from there. Kosta Duggan MD
--- NOTE | 2018-01-06 09:34 | CARD ---
APPROVED REPORT EXAM: Two-dimensional and M-mode echocardiogram with Doppler and color Doppler. Other Information Quality : [employer] : INDICATION CVA,AF 2D DIMENSIONS RVDd3.8 (2.9-3.5cm)Left Atrium (2D)4.3 (1.6-4.0cm) IVSd1.0 (0.7-1.1cm)LVDd5.0 (3.9-5.9cm) LVOT Diameter1.8 (1.8-2.4cm)PWd1.0 (0.7-1.1cm) LVDs3.7 (2.5-4.0cm)FS (%) 25.8 % LVEF (%)50.0 (>50%) M-Mode DIMENSIONS Aortic Root2.90 (2.2-3.7cm)Aortic Cusp Exc.1.10 (1.5-2.0cm) Aortic Valve AoV Peak Aasdjkgp564.0cm/sAoV VTI46.3cmAO Peak GR.19mmHg LVOT Peak Pwspnplk338.0cm/sLVOT VTI25.20cmAO Mean GR.9mmHg JAIRO (VMAX)1.23me1MOQ (VTI)1.38cm2 Mitral Valve E/A ratio0.0 TDI E/Lateral E'0.0E/Medial E'0.0 Pulmonary Valve PV Peak Tuxiirwy13.0cm/sPV Peak Grad.3mmHg Tricuspid Valve TR Peak Ecbwgosm713jz/sRAP [id number] Peak Gr.49mmHg [id number] LEFT VENTRICLE The left ventricle is normal size. There is normal left ventricular wall thickness. Left ventricle systolic function is mildly impaired. The Ejection Fraction is - 50 % There is mild global hypokinesis. RIGHT VENTRICLE The right ventricle is normal size. ATRIA The left atrium is mildly dilated. The right atrium size is normal. The interatrial septum is intact with no evidence for an atrial septal defect. AORTIC VALVE The aortic valve is mildly calcified. MITRAL VALVE The mitral valve is mildly thickened but opens well. Mitral regurgitation is mild. TRICUSPID VALVE The tricuspid valve is normal in structure. There is mild to moderate tricuspid regurgitation. There is mild pulmonary hypertension. PULMONIC VALVE The pulmonary valve is normal in structure. GREAT VESSELS The aortic root is normal in size. PERICARDIAL EFFUSION There is no pericardial effusion. <Conclusion> The left ventricle is normal size. There is normal left ventricular wall thickness. Left ventricle systolic function is mildly impaired. The Ejection Fraction is - 50 %. There is mild global hypokinesis. The aortic valve is mildly calcified. Aortic sclerosis. Mitral regurgitation is mild. There is mild to moderate tricuspid regurgitation. There is mild pulmonary hypertension.
[2018-01-06] MEDS: Sodium Chloride 0.9% 1,000 ML IV SCH (10:50)
[2018-01-06] MEDS ORDERED: Insulin Lispro (humaLOG) MEDIUM Coverage SC ONE (13:42)
[2018-01-06] MEDS: Insulin Lispro (humaLOG) MEDIUM Coverage SC SCH ×2 (17:21→22:42)
[2018-01-06] MEDS: Insulin Detemir 100 units/ml Vial (Levemir) SC SCH (21:25)
[2018-01-07] MEDS: Levothyroxine 125 MCG TAB PO SCH (05:15)
[2018-01-07] MEDS: Sodium Chloride 0.9% 1,000 ML IV SCH ×2 (05:43→14:07)
[2018-01-07] MEDS: Insulin Lispro (humaLOG) MEDIUM Coverage SC SCH ×4 (07:47→21:34)
[2018-01-07] MEDS: Pantoprazole 40 mg EC Tab PO SCH (09:43)
[2018-01-07] MEDS: diltiaZEM 180 mg/24 Hours CD Cap PO SCH (09:44)
[2018-01-07 09:45] LABS: URINE BILIRUBIN NEGATIVE (NEGATIVE); URINE BLOOD LARGE (NEGATIVE); URINE GLUCOSE (UA) NEGATIVE (NEGATIVE); URINE LEUKOCYTE ESTERASE LARGE Leu/uL (NEGATIVE); URINE PROTEIN 100 mg/dL (<30 mg/dL); URINE UROBILINOGEN 0.2 E.U./dL (<1 E.U./dL)
[2018-01-07 09:48] LABS: URINE APPEARANCE CLEAR (CLEAR); URINE COLOR YELLOW (YELLOW)
[2018-01-07 09:56] LABS: URINE BACTERIA MANY (NEG); URINE RBC TNTC /hpf (0-2); URINE WBC TNTC /hpf (0-6)
[2018-01-07 10:02] LABS: BASO # 0.03 K/mm3 (0.0-2.0); BASO % 0.2 % (0.0-3.0); EOS # 0.1 (0.0-0.7); EOS % 0.9 % (1.5-5.0); GRAN # 10.57 (1.4-6.5); GRAN % 79.3 % (50.0-68.0); HEMOGLOBIN 12.8 g/dL (12.0-16.0); LYMPH # 1.9 (1.2-3.4); LYMPH % 14.1 % (22.0-35.0); MEAN CELL VOLUME 83.4 fl (80.0-105.0); MEAN CORPUSCULAR HEMOGLOBIN 26.2 pg (25.0-35.0); MEAN CORPUSCULAR HGB CONC 31.4 g/dl (31.0-37.0); MEAN PLATELET VOLUME 9.4 fl (7.0-11.0); MONO # 0.7 (0.1-0.6); MONO % 5.5 % (1.0-6.0); RBC 4.88 10^6/uL (3.5-6.1); RED CELL DISTRIBUTION WIDTH 15.8 % (11.5-14.5); WHITE BLOOD COUNT 13.3 10^3/ul (4.5-11.0)
[2018-01-07 10:19] LABS: ALB/GLOB RATIO 1.3 (1.1-1.8); ALBUMIN 3.3 g/dL (3.0-4.8); CALCIUM 8.7 mg/dL (8.4-10.5)
[2018-01-07 10:21] LABS: PROTHROMBIN TIME 47.9 SECONDS (9.4-12.5)
[2018-01-07 10:22] LABS: INR 4.05 (0.93-1.08)
[2018-01-07] MEDS ORDERED: Sod Polystyrene Sulf 15 gm/60 ml Susp PO ONE (10:54)
--- NOTE | 2018-01-07 12:41 | PN ---
DATE: 01/07/2018 A 77-year-old white female with history of chronic atrial fibrillation; CVA; carotid disease, on anticoagulation; expressive aphasia. The patient was recently found to have multiple bronchogenic carcinoma with adenopathy in the left upper lobe. Case was discussed with the family. The patient is DNR/DNI due to the malignant nature and her other comorbid conditions. There is a right upper lobe mass 4 x 1.5 x 1.8. 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 The patient is not aware of it, nor the family is aware. The patient is at this point not a candidate for treatment. She is still having severe neuropathy of the right lower extremity and pain and mild shortness of breath. Plan is to continue physical therapy, possible subacute rehab and palliative care. Kosta Duggan MD
--- NOTE | 2018-01-07 13:06 | CP.PCM.PN ---
Subjective - Date & Time of Evaluation Date of Evaluation: 01/07/18 Time of Evaluation: 13:04 - Subjective Subjective: Ms. Harrell was seen and examined at the bedside. She is alert, oriented complains of very dull left frontal headache non- radiating. She further claims of getting sob with activity, on nasal cannula for oxygen support. She is able to follow commands and moves all extremities spontaneously. There was no untoward events overnight. Objective - Vital Signs/Intake and Output Vital Signs (last 24 hours): Temp Pulse Resp BP Pulse Ox 97.8 F 58 L 18 143/63 95 01/07/18 11:29 01/07/18 11:29 01/07/18 11:29 01/07/18 11:29 01/07/18 06:00 Intake and Output: 01/07/18 01/07/18 06:59 18:59 Intake Total 640 Output Total 400 Balance 240 - Medications Medications: Current Medications Acetaminophen (Tylenol 325mg Tab) 650 mg PO Q4H PRN PRN Reason: Fever >100.5 F Alprazolam (Xanax) 0.25 mg PO BID PRN; Protocol PRN Reason: Anxiety Stop: 01/10/18 21:03 Aspirin (Ecotrin) 81 mg PO DAILY [facility] Last Admin: 01/07/18 09:43 Dose: 81 mg Atorvastatin Calcium (Lipitor) 40 mg PO HS [facility] Last Admin: 01/06/18 21:25 Dose: 40 mg Digoxin (Digoxin) 0.125 mg PO 1400 [facility] Last Admin: 01/05/18 14:32 Dose: 0.125 mg Diltiazem HCl (Cardizem Cd) 180 mg PO DAILY [facility] Last Admin: 01/07/18 09:44 Dose: 180 mg Gabapentin (Neurontin) 600 mg PO TID [facility] PRN Reason: Protocol Last Admin: 01/07/18 09:43 Dose: 600 mg Insulin Detemir (Levemir) 20 unit SC HS [facility] Last Admin: 01/06/18 21:25 Dose: 20 units Insulin Human Lispro (Humalog Med) 0 units SC [facility] PRN Reason: Protocol Last Admin: 01/07/18 12:34 Dose: Not Given Levothyroxine Sodium (Synthroid) 125 mcg PO 0600 [facility] Last Admin: 01/07/18 05:15 Dose: 125 mcg Magnesium Oxide (Mag-Ox) 400 mg PO BID [facility] Oxycodone/Acetaminophen (Percocet 2.5/325 Mg Tab) 1 tab PO Q6H PRN PRN Reason: Pain, moderate (4-7) Last Admin: 01/06/18 20:32 Dose: 1 tab Pantoprazole Sodium (Protonix Ec Tab) 40 mg PO DAILY [facility] Last Admin: 01/07/18 09:43 Dose: 40 mg Warfarin Sodium (Coumadin) 7.5 mg PO 1800 [facility] PRN Reason: Protocol Last Admin: 01/06/18 17:21 Dose: 7.5 mg - Labs Labs: 01/07/18 09:45 01/07/18 09:45 PT 47.9 SECONDS (9.4-12.5) H 01/07/18 09:45 INR 4.05 (0.93-1.08) H* 01/07/18 09:45 APTT 39.5 Seconds (25.1-36.5) H 01/03/18 17:55 - Constitutional Appears: No Acute Distress - Head Exam Head Exam: NORMAL INSPECTION - Eye Exam Pupil Exam: PERRL - Neurological Exam Neurological Exam: Alert, Awake Neuro motor strength exam: Left Upper Extremity: 4, Right Upper Extremity: 4, Left Lower Extremity: 3, Right Lower Extremity: 3 Additional comments: neurological unchanged from previous examination. Assessment and Plan (1) History of CVA (cerebrovascular accident) Assessment & Plan: Case discussed with Dr. Castro, continue all current medical, physical, occupational, and speech therapies. Recommend hydration, blood pressure control. Status: Acute (2) Headache Assessment & Plan: Case discussed with Dr. Castro, recommend Magnesium sulfate 400 mg PO BID. Status: Acute
[2018-01-07] MEDS: cefTRIAXone 1 gm 1 GM/100 ML BAG IVPB SCH (14:21)
--- NOTE | 2018-01-07 15:49 | PN ---
DATE: 01/07/2018 SUBJECTIVE: The patient is seen lying in bed on telemetry. She appears more awake today. Her speech remains halting and somewhat dysarthric. She offers no complaints. Of note, she has been found to have evidence of probable metastatic lung cancer which has been not disclosed to her at this point in time. Her heart rate remains for the most part in the 50s with atrial fibrillation. CURRENT MEDICATIONS: Include diltiazem 180 mg daily, Ecotrin once daily, insulin, Lipitor 40 mg daily, Neurontin, Protonix 40 mg daily, Synthroid 125 mcg daily and Xanax p.r.n. PHYSICAL EXAMINATION GENERAL: She is an elderly woman who appears comfortable at this time. VITAL SIGNS: Her blood pressure is 136/60 with a pulse of 50 in atrial fibrillation, respirations are 14. She is currently afebrile. HEENT: No JVD. CHEST: Few scattered rhonchi heard. HEART: PMI displaced laterally with an irregularly irregular rhythm. ABDOMEN: Soft and nontender with normoactive bowel sounds. EXTREMITIES: Trace ankle edema. Multiple venous varicosities noted. DIAGNOSTIC DATA: Potassium 5.5, BUN and creatinine are 41 and 1.8. White count 13.3, hemoglobin and hematocrit 12.8 and 40.7 with a platelet count of 150,000. INR is 4.05. Coumadin is currently on hold. IMPRESSION: 1. Altered mental status, slowly improving. 2. Chronic atrial fibrillation with slow ventricular response, somewhat improved, off digoxin and with lowering of diltiazem dose. 3. Severe left ventricular dysfunction. 4. Coronary artery disease status post remote bypass surgery. 5. Probable lung cancer. 6. Severe chronic obstructive pulmonary disease. 7. Rest of problems as noted. RECOMMENDATIONS: Her current medications will continue for now. If further excessive ventricular rate slowing occurs, diltiazem can be reduced further or even discontinued. Conservative management of her lung mass is planned. Supportive care and comfort care should be provided at this time. A DNR/DNI order is in place. We will continue to follow and make further recommendations as appropriate. Edwin Carter MD
[2018-01-07] MEDS: Magnesium Oxide 400 mg Tab UD PO SCH (17:00)
[2018-01-07] MEDS: Oxycodone/Acetaminophen 2.5/325 mg Tab PO PRN (21:37)
[2018-01-07] MEDS: Insulin Detemir 100 units/ml Vial (Levemir) SC SCH (21:38)
[2018-01-08] MEDS: Levothyroxine 125 MCG TAB PO SCH (05:26)
[2018-01-08 07:05] LABS: BASO # 0.03 K/mm3 (0.0-2.0); BASO % 0.3 % (0.0-3.0); EOS # 0.2 (0.0-0.7); EOS % 1.9 % (1.5-5.0); GRAN # 6.92 (1.4-6.5); GRAN % 72.1 % (50.0-68.0); HEMOGLOBIN 11.8 g/dL (12.0-16.0); LYMPH # 1.8 (1.2-3.4); LYMPH % 18.6 % (22.0-35.0); MEAN CELL VOLUME 83.7 fl (80.0-105.0); MEAN CORPUSCULAR HEMOGLOBIN 25.7 pg (25.0-35.0); MEAN CORPUSCULAR HGB CONC 30.6 g/dl (31.0-37.0); MEAN PLATELET VOLUME 9.6 fl (7.0-11.0); MONO # 0.7 (0.1-0.6); MONO % 7.1 % (1.0-6.0); RBC 4.6 10^6/uL (3.5-6.1); RED CELL DISTRIBUTION WIDTH 16.1 % (11.5-14.5); WHITE BLOOD COUNT 9.6 10^3/ul (4.5-11.0)
[2018-01-08 07:28] LABS: CALCIUM 8.4 mg/dL (8.4-10.5)
[2018-01-08 07:29] LABS: ALB/GLOB RATIO 1.2 (1.1-1.8); ALBUMIN 3.1 g/dL (3.0-4.8)
[2018-01-08 07:37] LABS: PROTHROMBIN TIME 37.3 SECONDS (9.4-12.5)
[2018-01-08 07:38] LABS: INR 3.17 (0.93-1.08)
--- NOTE | 2018-01-08 07:42 | CP.PCM.PN ---
Subjective - Date & Time of Evaluation Date of Evaluation: 01/08/18 Time of Evaluation: 07:00 - Subjective Subjective: Stable on 2R. No CP or SOB. V/S noted. AF with rates 58 - 79 recently PE: Lungs: rhonchi Cor.: S1S2, irreg. Abd.: soft Ext.: no edema Neuro.: alert I/O= 1380/2000 Labs: INR = 4.05, Cr.= 1.3, Mg.++= 2.2 CTA Head and neck noted: occ LICA, mod. NICK, mediastinal and hilar adenopathy with apical infiltrates: ? cancer CT Chest noted: Lung mass with diffuse adenopathy Echo: Mild LVD, EF ~ 50%, Mild MR, Mild/Mod. TR, Mild PH Objective - Vital Signs/Intake and Output Vital Signs (last 24 hours): Temp Pulse Resp BP Pulse Ox 98.6 F 64 20 137/81 95 01/08/18 06:00 01/08/18 06:00 01/08/18 06:00 01/08/18 06:00 01/08/18 06:00 Intake and Output: 01/08/18 01/08/18 06:59 18:59 Intake Total 1380 Output Total 2000 Balance -620 - Medications Medications: Current Medications Acetaminophen (Tylenol 325mg Tab) 650 mg PO Q4H PRN PRN Reason: Fever >100.5 F Alprazolam (Xanax) 0.25 mg PO BID PRN; Protocol PRN Reason: Anxiety Stop: 01/10/18 21:03 Aspirin (Ecotrin) 81 mg PO DAILY [facility] Last Admin: 01/07/18 09:43 Dose: 81 mg Atorvastatin Calcium (Lipitor) 40 mg PO HS [facility] Last Admin: 01/07/18 21:37 Dose: 40 mg Digoxin (Digoxin) 0.125 mg PO 1400 [facility] Last Admin: 01/05/18 14:32 Dose: 0.125 mg Diltiazem HCl (Cardizem Cd) 180 mg PO DAILY [facility] Last Admin: 01/07/18 09:44 Dose: 180 mg Gabapentin (Neurontin) 600 mg PO TID [facility] PRN Reason: Protocol Last Admin: 01/07/18 17:01 Dose: 600 mg Ceftriaxone Sodium (Rocephin 1 Gram Ivpb) 1 gm in 100 mls @ 100 mls/hr IVPB DAILY [facility] PRN Reason: Protocol Last Admin: 01/07/18 14:21 Dose: 100 mls/hr Sodium Chloride (Sodium Chloride 0.9%) 1,000 mls @ 50 mls/hr IV .Q20H [facility] Last Admin: 01/07/18 14:07 Dose: 50 mls/hr Insulin Detemir (Levemir) 20 unit SC HS [facility] Last Admin: 01/07/18 21:38 Dose: 20 units Insulin Human Lispro (Humalog Med) 0 units SC ACHS [facility] PRN Reason: Protocol Last Admin: 01/07/18 21:34 Dose: Not Given Levothyroxine Sodium (Synthroid) 125 mcg PO 0600 [facility] Last Admin: 01/08/18 05:26 Dose: 125 mcg Magnesium Oxide (Mag-Ox) 400 mg PO BID [facility] Last Admin: 01/07/18 17:00 Dose: 400 mg Oxycodone/Acetaminophen (Percocet 2.5/325 Mg Tab) 1 tab PO Q6H PRN PRN Reason: Pain, moderate (4-7) Last Admin: 01/07/18 21:37 Dose: 1 tab Pantoprazole Sodium (Protonix Ec Tab) 40 mg PO DAILY [facility] Last Admin: 01/07/18 09:43 Dose: 40 mg Warfarin Sodium (Coumadin) 7.5 mg PO 1800 [facility] PRN Reason: Protocol Last Admin: 01/06/18 17:21 Dose: 7.5 mg - Labs Labs: 01/08/18 06:30 01/08/18 06:30 PT 15.0 SECONDS (9.4-12.5) H 01/08/18 06:30 INR 1.30 (0.93-1.08) H 01/08/18 06:30 APTT 39.5 Seconds (25.1-36.5) H 01/03/18 17:55 Assessment and Plan - Assessment and Plan (Free Text) Assessment: AMS/abn. speech/Recent CVA/occluded LICA with mod. NICK stenosis on CTA H/O CVA AF with slow VR CAD/CABG/sev. LVD Severe COPD/Home O2 Abd CT Chest: mediastinal and hilar adenopathy, lung mass, R/O cancer Chronic AF, on warfarin Former Smoker H/O breast cancer with lumpectomy Mild MR/Mod. TR/ Mild PH on echo Diabetes Pancreatitis S/P Sandeep., GB surgery, hysterectomy DNR/DNI noted Plan: Continue cardizem 180/day. Hold warfarin Monitor INRs, labs, I/O, neuro signs, sats., tel., etc. As per Dr. Duggan, Neuro. TCU eval. Will follow
[2018-01-08] MEDS: Insulin Lispro (humaLOG) MEDIUM Coverage SC SCH ×2 (08:24→11:38)
--- NOTE | 2018-01-08 09:08 | PN ---
DATE: 01/08/2018 A 77-year-old white female admitted to the hospital with possible new stroke, expressive aphasia, and slight disorientation. The patient was found to have a right upper lobe mass consistent with a bronchogenic carcinoma with lymphadenopathy. Family is aware. The patient is a DNR/DNI. No intervention will be attempted at this time. Family is aware of and agreeable. The patient has history of congestive heart failure, atrial fibrillation, CVA, carotid artery disease. The patient is still having some expressive aphasia and dysarthria. The patient will be transferred to TCU for continued physical therapy, occupational therapy and speech therapy and the patient will be followed in TCU. Kosta Duggan MD
[2018-01-08] MEDS: cefTRIAXone 1 gm 1 GM/100 ML BAG IVPB SCH (10:36)
[2018-01-08] MEDS: Magnesium Oxide 400 mg Tab UD PO SCH (10:36)
[2018-01-08] MEDS: Sodium Chloride 0.9% 1,000 ML IV SCH (10:36)
[2018-01-08] MEDS: Pantoprazole 40 mg EC Tab PO SCH (10:36)
[2018-01-08] MEDS: diltiaZEM 180 mg/24 Hours CD Cap PO SCH (10:39)
--- NOTE | 2018-01-08 11:15 | PQF CLVAL ---
This form is a permanent part of the medical record Clarification of your documentation is requested to better reflect the severity of illness and intensity of treatment of your patient. The patients Clinical Indicators include: 01/08 documentation of " possible new stroke w/ expressive aphasia . CTA Head & neck showed L ICA occlusion & mod stenosis of prox. Rt ICA. Has dx of stroke been ruled out? MRI shows no acute intracranial findings. Neuro notes only Hx CVA & headache. Please clarify your Principle Dx . Please provide additional clinical indicators supportive of your documented diagnosis of . [ ] Condition exists and additional clinical indicators documented in the medical record (please document in your next progress note) [ x] Condition does not exist and amended documentation provided in the medical record (please provide amended documentation in your next progress note) [ ] Unable to provide additional clarity regarding the diagnosis [ ] Other (please specify) [ ] Unknown In responding to this query, please exercise your independent professional judgment. The fact that a question is asked does not imply that any particular answer is desired or expected. Thank you for your clarification on this documentation. If you have any questions please call:[ ][phone] * Thank you, [ ] Vivienne Wagner RN CD[facility] reconditioning associate [facility]
[2018-01-08 11:28] VITALS: O2SAT 94
--- NOTE | 2018-01-08 11:40 | CP.PCM.PN ---
Subjective - Date & Time of Evaluation Date of Evaluation: 01/08/18 Time of Evaluation: 11:40 - Subjective Subjective: Ms. Harrell was seen and examined at the bedside. She is alert, oriented claims of mild improvement of her frontal headache. She further claims of getting sob with activity, on nasal cannula for oxygen support. She is able to follow commands and moves all extremities spontaneously.She also verbalize of poor fluid intake, encourage to try to increase at least 1 glass /day. There was no untoward events overnight. Objective - Vital Signs/Intake and Output Vital Signs (last 24 hours): Temp Pulse Resp BP Pulse Ox 98.6 F 76 20 135/57 L 94 L 01/08/18 06:00 01/08/18 10:39 01/08/18 06:00 01/08/18 10:39 01/08/18 10:00 Intake and Output: 01/08/18 01/08/18 06:59 18:59 Intake Total 1380 1380 Output Total 1999 1999 Balance -620 -620 - Medications Medications: Current Medications Acetaminophen (Tylenol 325mg Tab) 650 mg PO Q4H PRN PRN Reason: Fever >100.5 F Alprazolam (Xanax) 0.25 mg PO BID PRN; Protocol PRN Reason: Anxiety Stop: 01/10/18 21:03 Aspirin (Ecotrin) 81 mg PO DAILY [facility] Last Admin: 01/08/18 10:36 Dose: 81 mg Atorvastatin Calcium (Lipitor) 40 mg PO HS [facility] Last Admin: 01/07/18 21:37 Dose: 40 mg Digoxin (Digoxin) 0.125 mg PO 1400 [facility] Last Admin: 01/05/18 14:32 Dose: 0.125 mg Diltiazem HCl (Cardizem Cd) 180 mg PO DAILY [facility] Last Admin: 01/08/18 10:39 Dose: 180 mg Gabapentin (Neurontin) 600 mg PO TID [facility] PRN Reason: Protocol Last Admin: 01/08/18 10:36 Dose: 600 mg Ceftriaxone Sodium (Rocephin 1 Gram Ivpb) 1 gm in 100 mls @ 100 mls/hr IVPB DAILY [facility] PRN Reason: Protocol Last Admin: 01/08/18 10:36 Dose: 100 mls/hr Sodium Chloride (Sodium Chloride 0.9%) 1,000 mls @ 50 mls/hr IV .Q20H [facility] Last Admin: 06/14/18 10:36 Dose: 50 mls/hr Insulin Detemir (Levemir) 20 unit SC HS [facility] Last Admin: 01/07/18 21:38 Dose: 20 units Insulin Human Lispro (Humalog Med) 0 units SC ACHS [facility] PRN Reason: Protocol Last Admin: 01/08/18 11:38 Dose: Not Given Levothyroxine Sodium (Synthroid) 125 mcg PO 0600 [facility] Last Admin: 01/08/18 05:26 Dose: 125 mcg Magnesium Oxide (Mag-Ox) 400 mg PO BID [facility] Last Admin: 01/08/18 10:36 Dose: 400 mg Oxycodone/Acetaminophen (Percocet 2.5/325 Mg Tab) 1 tab PO Q6H PRN PRN Reason: Pain, moderate (4-7) Last Admin: 01/07/18 21:37 Dose: 1 tab Pantoprazole Sodium (Protonix Ec Tab) 40 mg PO DAILY [facility] Last Admin: 01/08/18 10:36 Dose: 40 mg Warfarin Sodium (Coumadin) 7.5 mg PO 1800 [facility] PRN Reason: Protocol Last Admin: 01/06/18 17:21 Dose: 7.5 mg - Labs Labs: 01/08/18 06:30 01/08/18 06:30 PT 37.3 SECONDS (9.4-12.5) H 01/08/18 06:30 INR 3.17 (0.93-1.08) H 01/08/18 06:30 APTT 39.5 Seconds (25.1-36.5) H 01/03/18 17:55 - Constitutional Appears: No Acute Distress - Head Exam Head Exam: NORMAL INSPECTION - Neurological Exam Neuro motor strength exam: Left Upper Extremity: 3, Right Upper Extremity: 4, Left Lower Extremity: 3, Right Lower Extremity: 4 Additional comments: neurological unchanged from previous examination. Assessment and Plan (1) History of CVA (cerebrovascular accident) Assessment & Plan: Case discussed with Dr. Castro, continue all current medical, physical, occupational, and speech therapies. Recommend hydration, blood pressure control , and electrolyte abnormalities Status: Acute
[2018-01-08 13:23] VITALS: BP 149/55; PULSE 70; RESP 18; TEMP 98.2
--- NOTE | 2018-01-10 05:23 | DS ---
HISTORY OF PRESENT ILLNESS: Patient is a 77-year-old white female, who was admitted to the hospital with worsening of expressive aphasia, disorientation, and change in mental status. Patient had a workup for recurrent stroke. She has history of stroke in the past with expressive aphasia in the past. There was no evidence on MRI of a new stroke. Patient was continued on her medication. She did have a CTA of the neck which showed a mass in the right upper lobe. Patient had a CT of the chest, which showed most likely metastatic bronchogenic carcinoma with multiple adenopathy. Patient is unaware of the diagnoses as per family. The patient eventually was continued on her anticoagulation and she was somewhat under anticoagulated on admission possibly causing the change in mental status. The INR was increased with Coumadin. She was transferred to TCU for continued speech therapy, physical therapy, and occupational therapy. DISCHARGE DIAGNOSES: Will be right upper lobe lung mass, change in mental status, history of cerebrovascular accident, history of arrhythmia, history of expressive aphasia, and chronic obstructive pulmonary disease. Kosta Duggan MD
== END 2018-01-08 13:57 | DRG 182 ==
LOC: ED 17:27 → ERH 20:26 → 2RSO 22:27
PROVIDERS: ADMIT Internal Medicine; ATTEND Internal Medicine
DX: C34.11 Malignant neoplasm of upper lobe, right bronchus or lung (principal); R47.1 Dysarthria and anarthria; I65.23 Occlusion and stenosis of bilateral carotid arteries; R59.0 Localized enlarged lymph nodes; M47.812 Spondylosis without myelopathy or radiculopathy, cervical region; I48.2 Chronic atrial fibrillation; J44.9 Chronic obstructive pulmonary disease, unspecified; E11.41 Type 2 diabetes mellitus with diabetic mononeuropathy; I11.0 Hypertensive heart disease with heart failure; I50.9 Heart failure, unspecified; I27.20 Pulmonary hypertension, unspecified; I25.10 Atherosclerotic heart disease of native coronary artery without angina pectoris; E78.5 Hyperlipidemia, unspecified; E03.9 Hypothyroidism, unspecified; F41.9 Anxiety disorder, unspecified; R29.810 Facial weakness; Z66 Do not resuscitate; B02.9 Zoster without complications; R51 Headache; Z79.01 Long term (current) use of anticoagulants; Z86.718 Personal history of other venous thrombosis and embolism; I69.320 Aphasia following cerebral infarction; Z85.3 Personal history of malignant neoplasm of breast; Z79.4 Long term (current) use of insulin; Z88.0 Allergy status to penicillin; Z91.040 Latex allergy status; Z87.891 Personal history of nicotine dependence; Z95.1 Presence of aortocoronary bypass graft; Z99.81 Dependence on supplemental oxygen

== ENCOUNTER 2018-01-08 14:01 | Inpatient (IN) | payer OTHER, MEDICARE ==
[2018-01-08 14:03] VITALS: BMI 24.2
[2018-01-08] MEDS ORDERED: Oxycodone/Acetaminophen 2.5/325 mg Tab PO PRN (14:14)
[2018-01-08] MEDS: Insulin Lispro (humaLOG) MEDIUM Coverage SC SCH ×2 (17:29→22:00)
[2018-01-08] MEDS: Magnesium Oxide 400 mg Tab UD PO SCH (17:30)
[2018-01-08] MEDS: Insulin Detemir 100 units/ml Vial (Levemir) SC SCH (22:01)
[2018-01-09] MEDS ORDERED: Albuterol-Ipratrop 3 mg / 0.5 (3 ml) UD IH STA (04:41)
[2018-01-09] MEDS ORDERED: Albuterol-Ipratrop 3 mg / 0.5 (3 ml) UD ONE (04:45)
--- NOTE | 2018-01-09 05:27 | CP.PCM.PN ---
Subjective - Date & Time of Evaluation Date of Evaluation: 01/09/18 Time of Evaluation: 05:23 - Subjective Subjective: Called to evaluate patient for shortness of breath. She stated that she had trouble breathing and had some chest tightness. Patient had O2 saturation of 88 % on 2L RA, BP 163/69, Pulse 90, and RR of 24. Physical exam demonstrated diffuse rhonchi and rales at b/l lung bases. Chest x-ray was ordered. Patient given duoneb treatment and Lasix 40 mg IV. Patient was also noted to be anxious , she was then given her dose of Xanax. Patient's respiratory status improved and was back to baseline. O2 sat returned to 96%. Patient may benefit from Duonebs prn and home Lasix daily. Objective - Vital Signs/Intake and Output Vital Signs (last 24 hours): Temp Pulse Resp BP Pulse Ox 97.9 F 90 24 163/69 H 88 L 01/08/18 16:00 01/09/18 04:47 01/09/18 04:47 01/09/18 05:12 01/09/18 04:47 - Medications Medications: Current Medications Acetaminophen (Tylenol 325mg Tab) 650 mg PO Q4H PRN PRN Reason: temp above 101 Alprazolam (Xanax) 0.25 mg PO BID PRN; Protocol PRN Reason: Anxiety Stop: 01/15/18 14:05 Last Admin: 01/09/18 04:51 Dose: 0.25 mg Aspirin (Ecotrin) 81 mg PO 0800 [facility] Atorvastatin Calcium (Lipitor) 40 mg PO HS [facility] Last Admin: 01/08/18 22:01 Dose: 40 mg Diltiazem HCl (Cardizem Cd) 180 mg PO DAILY [facility] Docusate Sodium (Colace) 100 mg PO TID [facility] Last Admin: 01/08/18 17:21 Dose: 100 mg Gabapentin (Neurontin) 600 mg PO TID [facility] PRN Reason: Protocol Last Admin: 01/08/18 17:30 Dose: 600 mg Ceftriaxone Sodium (Rocephin 1 Gram Ivpb) 1 gm in 100 mls @ 100 mls/hr IVPB 0600 [facility] PRN Reason: Protocol Insulin Detemir (Levemir) 20 unit SC [facility] Last Admin: 01/08/18 22:01 Dose: 20 units Insulin Human Lispro (Humalog Med) 0 units SC ACHS [facility] PRN Reason: Protocol Last Admin: 01/08/18 22:00 Dose: Not Given Levothyroxine Sodium (Synthroid) 125 mcg PO 0600 [facility] Magnesium Oxide (Mag-Ox) 400 mg PO BID [facility] Last Admin: 01/08/18 17:30 Dose: 400 mg Oxycodone/Acetaminophen (Percocet 2.5/325 Mg Tab) 1 tab PO Q6H PRN PRN Reason: moderate pain ( 4-7) Pantoprazole Sodium (Protonix Ec Tab) 40 mg PO 0600 [facility] Warfarin Sodium (Coumadin) 5 mg PO 1800 [facility] PRN Reason: Protocol Last Admin: 01/08/18 17:22 Dose: 5 mg
[2018-01-09] MEDS: Levothyroxine 125 MCG TAB PO SCH (05:34)
[2018-01-09] MEDS: Pantoprazole 40 mg EC Tab PO SCH (05:34)
[2018-01-09] MEDS ORDERED: cefTRIAXone 1 gm 1 GM/100 ML BAG IVPB SCH (06:00)
[2018-01-09] MEDS: Insulin Lispro (humaLOG) MEDIUM Coverage SC SCH ×4 (06:53→21:40)
[2018-01-09 07:22] LABS: INR 1.77 (0.93-1.08); PROTHROMBIN TIME 20.6 SECONDS (9.4-12.5)
[2018-01-09] MEDS: Albuterol-Ipratrop 3 mg / 0.5 (3 ml) UD IH SCH ×3 (07:26→20:02)
--- NOTE | 2018-01-09 09:05 | PN ---
DATE: 01/09/2018 Patient is a 77-year-old white female, now transferred to TCU from [facility]. She has a lung mass consistent with bronchogenic carcinoma. She has a history of multiple CVAs in the past, PE, paroxysmal atrial fibrillation, expressive aphasia. The patient was admitted to the hospital with change in mental status, confusion, possible stroke; however, negative MRI of the brain and no physical evidence of recurrent stroke. Patient has some worsening shortness of breath and worsening expressive aphasia. Patient on CT of the neck was found to have a mass in the lungs and the CT of the chest showed right upper lobe mass with adenopathy consistent with metastatic bronchogenic carcinoma and patient is not aware of diagnosis and family wishes too. Patient was transferred to TCU, to continue some physical therapy, occupational therapy and speech therapy. She is stable. She is somewhat short of breath today. She does have a history of CAD, arrhythmia, and congestive heart failure in the past. Patient was added and that is why she is out of p.o.. Patient is stable today. She is somewhat fatigued and short of breath, otherwise unremarkable. Patient will start physical therapy today. Kosta Duggan MD
--- NOTE | 2018-01-09 09:40 | RAD ---
HISTORY: shortness of breath COMPARISON: 01/03/2018 FINDINGS: LUNGS: There is a right upper lobe infiltrate. There is a right-sided perihilar infiltrate extending into the right lower lobe. Minimal patchy infiltrates are seen in the left upper lobe PLEURA: No significant pleural effusion identified, no pneumothorax apparent. CARDIOVASCULAR: Normal. OSSEOUS STRUCTURES: No significant abnormalities. VISUALIZED UPPER ABDOMEN: Normal. OTHER FINDINGS: None. IMPRESSION: There is a right upper lobe infiltrate. There is a right-sided perihilar infiltrate extending into the right lower lobe. Minimal patchy infiltrates are seen in the left upper lobe
[2018-01-09] MEDS: diltiaZEM 180 mg/24 Hours CD Cap PO SCH (09:41)
[2018-01-09] MEDS: Magnesium Oxide 400 mg Tab UD PO SCH ×2 (09:42→17:38)
[2018-01-09] MEDS ORDERED: diltiaZEM 300 mg/24 Hours CD Cap PO SCH (10:00)
[2018-01-09] MEDS: Insulin Detemir 100 units/ml Vial (Levemir) SC SCH (21:42)
[2018-01-10] MEDS: Albuterol-Ipratrop 3 mg / 0.5 (3 ml) UD IH SCH ×4 (01:15→19:44)
[2018-01-10] MEDS: Levothyroxine 125 MCG TAB PO SCH (06:58)
[2018-01-10] MEDS: Pantoprazole 40 mg EC Tab PO SCH (06:58)
[2018-01-10] MEDS: Insulin Lispro (humaLOG) MEDIUM Coverage SC SCH ×4 (06:59→21:26)
[2018-01-10] MEDS: Cefpodoxime (Vantin) 200 mg Tab PO SCH ×2 (10:17→21:24)
[2018-01-10] MEDS: Magnesium Oxide 400 mg Tab UD PO SCH ×2 (10:17→17:42)
[2018-01-10] MEDS: diltiaZEM 180 mg/24 Hours CD Cap PO SCH (10:18)
--- NOTE | 2018-01-10 11:23 | PN ---
DATE: 01/10/2018 SUBJECTIVE: A 77-year-old white female in TCU. Patient doing well, sitting up, eating, tolerating diet well. Patient has probable lung cancer in the right upper lobe. She does have some rhonchi in the left midlung field. Her speech is more fluent. She is less short of breath. Her activity is increased. She is tolerating some physical therapy and occupational therapy. PLAN: To continue same and continue treatment for history of CVA, chronic atrial fibrillation, and carotid disease. Kosta Duggan MD
[2018-01-10] MEDS: Insulin Detemir 100 units/ml Vial (Levemir) SC SCH (21:36)
[2018-01-11] MEDS: Albuterol-Ipratrop 3 mg / 0.5 (3 ml) UD IH SCH ×4 (01:19→19:29)
[2018-01-11] MEDS: Levothyroxine 125 MCG TAB PO SCH (05:35)
[2018-01-11] MEDS: Pantoprazole 40 mg EC Tab PO SCH (05:36)
[2018-01-11] MEDS: Insulin Lispro (humaLOG) MEDIUM Coverage SC SCH ×5 (06:32→21:33)
[2018-01-11] MEDS: Magnesium Oxide 400 mg Tab UD PO SCH ×2 (10:43→17:56)
[2018-01-11] MEDS: Cefpodoxime (Vantin) 200 mg Tab PO SCH ×2 (10:44→21:24)
[2018-01-11] MEDS: diltiaZEM 180 mg/24 Hours CD Cap PO SCH (14:45)
[2018-01-11] MEDS: Insulin Detemir 100 units/ml Vial (Levemir) SC SCH (21:25)
[2018-01-12] MEDS: Albuterol-Ipratrop 3 mg / 0.5 (3 ml) UD IH SCH ×4 (01:08→19:37)
[2018-01-12] MEDS: Levothyroxine 125 MCG TAB PO SCH (05:46)
[2018-01-12] MEDS: Pantoprazole 40 mg EC Tab PO SCH (05:46)
[2018-01-12] MEDS: Insulin Lispro (humaLOG) MEDIUM Coverage SC SCH ×4 (06:42→21:34)
[2018-01-12] MEDS: diltiaZEM 180 mg/24 Hours CD Cap PO SCH (10:19)
[2018-01-12] MEDS: Magnesium Oxide 400 mg Tab UD PO SCH ×2 (10:20→18:02)
[2018-01-12] MEDS: Cefpodoxime (Vantin) 200 mg Tab PO SCH ×2 (10:21→21:33)
[2018-01-12 10:27] LABS: INR 1.45 (0.93-1.08); PROTHROMBIN TIME 16.8 SECONDS (9.4-12.5)
--- NOTE | 2018-01-12 11:12 | PN ---
DATE: 01/12/2018 A 77-year-old white female with right upper lobe nodule with adenopathy, most likely bronchogenic carcinoma, COPD, CVA, paroxysmal atrial fibrillation, carotid artery stenosis. Patient is back on anticoagulation. She was made DNR/DNI by the family. She is unaware of her diagnosis of possible lung cancer, not biopsy proven but proven by CAT scan only. Patient is stable. She is tolerating the physical therapy and occupational therapy. She is finishing the course of antibiotics. Then, she will be discharged home or to a subacute facility. Plan is to continue anticoagulation, blood pressure control and treatment of COPD. Kosta Duggan MD
--- NOTE | 2018-01-12 12:14 | CP.PCM.CON ---
History of Present Illness - History of Present Illness History of Present Illness: Ms Harrell is a 77 y/o female, who presented as a code stroke last 2017. During the assessment, the patient was deemed to not be a TPA candidate as she is on coumadin and has a history of atrial fibrillation. Last 01/03/2018, patient had a spell of confusion with dysarthria that lasted for several minutes and persisted in the ED. 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 ica occlusion that is 66%. MRI of the brain showed old infarct in the right frontal lobe with cystic encephalomalacia and laminar necrosis. There was no acute findings. She was transfer to TCU for rehab. Review of Systems - Review of Systems All systems: reviewed and no additional remarkable complaints except (SOB with any activity, skin rash noted in her left chin and lower lips.) Past Patient History - Infectious Disease Hx of Infectious Diseases: None - Tetanus Immunizations Tetanus Immunization: Unknown - Past Social History Smoking Status: Former Smoker - CARDIAC Hx Cardiac Disorders: Yes Hx Congestive Heart Failure: Yes Hx Hypertension: Yes - PULMONARY Hx Chronic Obstructive Pulmonary Disease (COPD): Yes (+home nebulizer) - NEUROLOGICAL HX Cerebrovascular Accident: Yes - HEENT Hx HEENT Problems: Yes ([place]/glasses) - RENAL Hx Chronic Kidney Disease: No - ENDOCRINE/METABOLIC Hx Diabetes Mellitus Type 2: Yes - HEMATOLOGICAL/ONCOLOGICAL Hx Shingles: Yes (H/O IN JULY, left face) - INTEGUMENTARY Hx Dermatological Problems: No - MUSCULOSKELETAL/RHEUMATOLOGICAL Hx Falls: Yes - GASTROINTESTINAL Hx Gastrointestinal Disorders: Yes (ULCER,GALL BLADDER DISEASE,CHOLECYSTECTOMY,) - GENITOURINARY/GYNECOLOGICAL Hx Genitourinary Disorders: No - PSYCHIATRIC Hx Psychophysiologic Disorder: Yes Hx Anxiety: Yes Hx Depression: No Hx Emotional Abuse: No Hx Physical Abuse: No - SURGICAL HISTORY Hx Appendectomy: Yes Hx Cholecystectomy: Yes Hx Mastectomy: Yes (left mastectomy) Hx Open Heart Surgery: Yes Other/Comment: QUADRUPLE BYPASS,OPEN HEART,CARDIAC STENT X 1 - ANESTHESIA Hx Anesthesia: Yes Hx Anesthesia Reactions: No Hx Malignant Hyperthermia: No Meds Allergies/Adverse Reactions: Allergies Allergy/AdvReac Type Severity Reaction Status Date / Time latex Allergy RASH Verified 01/08/18 14:03 Sulfa (Sulfonamide Allergy RASH Verified 01/08/18 14:03 Antibiotics) rubber Allergy RASH Uncoded 01/08/18 14:03 tape Allergy RASH Uncoded 01/08/18 14:03 - Medications Medications: Current Medications Acetaminophen (Tylenol 325mg Tab) 650 mg PO Q4H PRN PRN Reason: temp above 101 Albuterol/Ipratropium (Duoneb 3 Mg/0.5 Mg (3 Ml) Ud) 3 ml IH [id number] [facility] Last Admin: 01/12/18 07:15 Dose: 3 ml Alprazolam (Xanax) 0.25 mg PO BID PRN; Protocol PRN Reason: Anxiety Stop: 01/15/18 14:05 Last Admin: 01/09/18 04:51 Dose: 0.25 mg Aspirin (Ecotrin) 81 mg PO 0800 [facility] Last Admin: 01/12/18 08:09 Dose: 81 mg Atorvastatin Calcium (Lipitor) 40 mg PO [facility] Last Admin: 01/11/18 21:24 Dose: 40 mg Cefpodoxime Proxetil (Vantin) 200 mg PO Q12 [facility] Stop: 01/12/18 22:01 Last Admin: 01/12/18 10:21 Dose: 200 mg Diltiazem HCl (Cardizem Cd) 180 mg PO DAILY [facility] Last Admin: 01/12/18 10:19 Dose: 180 mg Docusate Sodium (Colace) 100 mg PO TID [facility] Last Admin: 01/12/18 10:20 Dose: 100 mg Furosemide (Lasix) 40 mg PO DAILY [facility] Last Admin: 01/12/18 10:20 Dose: 40 mg Gabapentin (Neurontin) 600 mg PO TID [facility] PRN Reason: Protocol Last Admin: 01/12/18 10:20 Dose: 600 mg Insulin Detemir (Levemir) 20 unit SC [facility] Last Admin: 01/11/18 21:25 Dose: 20 units Insulin Human Lispro (Humalog Med) 0 units SC [facility] PRN Reason: Protocol Last Admin: 01/12/18 06:42 Dose: Not Given Levothyroxine Sodium (Synthroid) 125 mcg PO 0600 [facility] Last Admin: 01/12/18 05:46 Dose: 125 mcg Magnesium Oxide (Mag-Ox) 400 mg PO BID [facility] Last Admin: 01/12/18 10:20 Dose: 400 mg Oxycodone/Acetaminophen (Percocet 2.5/325 Mg Tab) 1 tab PO Q6H PRN PRN Reason: moderate pain ( 4-7) Pantoprazole Sodium (Protonix Ec Tab) 40 mg PO 0600 [facility] Last Admin: 01/12/18 05:46 Dose: 40 mg Warfarin Sodium (Coumadin) 5 mg PO 1800 [facility] PRN Reason: Protocol Last Admin: 01/11/18 17:55 Dose: 5 mg Physical Exam - Constitutional Appears: No Acute Distress - Head Exam Head Exam: NORMAL INSPECTION - Eye Exam Pupil Exam: PERRL - ENT Exam ENT Exam: Mucous Membranes Moist - Neck Exam Neck exam: Positive for: Normal Inspection - Respiratory Exam Respiratory Exam: Rales - Cardiovascular Exam Cardiovascular Exam: +S1, +S2 - GI/Abdominal Exam GI & Abdominal Exam: Normal Bowel Sounds, Soft. absent: Tenderness - Extremities Exam Extremities exam: Positive for: normal inspection - Neurological Exam Neurological exam: Alert, Oriented x3 - Expanded Neurological Exam Expanded Patient oriented to: person, place, time Cranial nerves: EOM's Intact: Normal, Facial P[place]y w/o Forehead Movement: Normal, Facial Sensation: Normal, Gag Reflex: Normal, Tongue Deviation: Normal Cerebellar Function: Finger to Nose: Normal, Heel to Rose: Normal Upper motor neuron: Sensory Extinction: Normal Sensory exam: Lower Extremity 2 Point Discrimination: Normal, Lower Extremity Light Touch: Normal, Lower Extremity Pin Prick: Normal, Lower Extremity Temperature: Normal, Upper Extremity 2 Point Discrimination: Normal, Upper Extremity Light Touch: Normal, Upper Extremity Pin Prick: Normal, Upper Extremity Temperature: Normal Neuro motor strength exam: Left Upper Extremity: 3, Right Upper Extremity: 4, Left Lower Extremity: 3, Right Lower Extremity: 4 Results - Vital Signs Recent Vital Signs: Last Vital Signs Temp 98.3 F 01/11/18 16:00 Pulse 84 01/12/18 10:19 Resp 18 01/11/18 16:00 BP 124/59 L 01/12/18 10:20 Pulse Ox 95 01/11/18 16:00 - Labs Labs: Laboratory Results - last 24 hr 01/11/18 01/11/18 01/12/18 16:03 21:15 05:26 PT INR POC Glucose (mg/dL) 225 H 235 H 101 01/12/18 01/12/18 10:15 11:58 PT 16.8 H INR 1.45 H POC Glucose (mg/dL) 161 H Assessment & Plan (1) History of CVA (cerebrovascular accident) Assessment and Plan: 77 y/o female, who presented as a code stroke last 01/03/2018. During the assessment, the patient was deemed to not be a TPA candidate as she is on coumadin and has a history of atrial fibrillation. Case discussed with Dr. Ford, recommend the followin. continue PT/ OT/ St 2. Aspirin 81 mg PO daily 3. Continue anticoagulant, maintain within therapeutic level. 4. Please monitor skin rash in her left lower chin, please consult ID if needed. 5. Blood pressure and glycemic control Thank you. Status: Acute
[2018-01-12] MEDS ORDERED: Naproxen 550 mg Tab PO STA (12:16)
--- NOTE | 2018-01-12 15:52 | CP.PCM.CON ---
History of Present Illness - History of Present Illness History of Present Illness: 77 year old female with PMH of atrial fibrillation, chronic CHF, COPD, history of DVT, CAD S/P CABG, history of herpes zoster was initially admitted because of confusion and dysarthria and the patient was found to have ischemic CVA and she was treated by Neurology. She has done well and is now transferred to [facility] for continued medical therapy and physical rehab. She is also being treated for COPD exacerbation and is being given Cefpodoxime by PMD. While in [facility], she started complaining of pain arounf the left side of the face, which she states is how her shingles usually starts. She also has erythematous lesions starting on the left side of the chin. She denies fever or chills, no nausea or vomiting , no blurring of vision, no chest pain, no SOB, no headache or dizziness, no abdominal pain, no cough or colds, no diarrhea, no dysuria. Infectious Diseases consult is requested to further evaluate and manage. Review of Systems - Review of Systems All systems: reviewed and no additional remarkable complaints except (as per HPI ) Past Patient History - Infectious Disease Hx of Infectious Diseases: None - Tetanus Immunizations Tetanus Immunization: Unknown - Past Social History Smoking Status: Former Smoker - CARDIAC Hx Cardiac Disorders: Yes Hx Congestive Heart Failure: Yes Hx Hypertension: Yes - PULMONARY Hx Chronic Obstructive Pulmonary Disease (COPD): Yes (+home nebulizer) - NEUROLOGICAL HX Cerebrovascular Accident: Yes - HEENT Hx HEENT Problems: Yes ([place]/glasses) - RENAL Hx Chronic Kidney Disease: No - ENDOCRINE/METABOLIC Hx Diabetes Mellitus Type 2: Yes - HEMATOLOGICAL/ONCOLOGICAL Hx Shingles: Yes (H/O IN JULY, left face) - INTEGUMENTARY Hx Dermatological Problems: No - MUSCULOSKELETAL/RHEUMATOLOGICAL Hx Falls: Yes - GASTROINTESTINAL Hx Gastrointestinal Disorders: Yes (ULCER,GALL BLADDER DISEASE,CHOLECYSTECTOMY,) - GENITOURINARY/GYNECOLOGICAL Hx Genitourinary Disorders: No - PSYCHIATRIC Hx Psychophysiologic Disorder: Yes Hx Anxiety: Yes Hx Depression: No Hx Emotional Abuse: No Hx Physical Abuse: No - SURGICAL HISTORY Hx Appendectomy: Yes Hx Cholecystectomy: Yes Hx Mastectomy: Yes (left mastectomy) Hx Open Heart Surgery: Yes Other/Comment: QUADRUPLE BYPASS,OPEN HEART,CARDIAC STENT X 1 - ANESTHESIA Hx Anesthesia: Yes Hx Anesthesia Reactions: No Hx Malignant Hyperthermia: No Meds Allergies/Adverse Reactions: Allergies Allergy/AdvReac Type Severity Reaction Status Date / Time latex Allergy RASH Verified 01/08/18 14:03 Sulfa (Sulfonamide Allergy RASH Verified 01/08/18 14:03 Antibiotics) rubber Allergy RASH Uncoded 01/08/18 14:03 tape Allergy RASH Uncoded 01/08/18 14:03 - Medications Medications: Current Medications Acetaminophen (Tylenol 325mg Tab) 650 mg PO Q4H PRN PRN Reason: temp above 101 Albuterol/Ipratropium (Duoneb 3 Mg/0.5 Mg (3 Ml) Ud) 3 ml IH [id number] [facility] Last Admin: 01/12/18 07:15 Dose: 3 ml Alprazolam (Xanax) 0.25 mg PO BID PRN; Protocol PRN Reason: Anxiety Stop: 01/15/18 14:05 Last Admin: 01/09/18 04:51 Dose: 0.25 mg Aspirin (Ecotrin) 81 mg PO 0800 [facility] Last Admin: 01/12/18 08:09 Dose: 81 mg Atorvastatin Calcium (Lipitor) 40 mg PO [facility] Last Admin: 01/11/18 21:24 Dose: 40 mg Cefpodoxime Proxetil (Vantin) 200 mg PO Q12 [facility] Stop: 01/12/18 22:01 Last Admin: 01/12/18 10:21 Dose: 200 mg Diltiazem HCl (Cardizem Cd) 180 mg PO DAILY [facility] Last Admin: 01/12/18 10:19 Dose: 180 mg Docusate Sodium (Colace) 100 mg PO TID [facility] Last Admin: 01/12/18 10:20 Dose: 100 mg Furosemide (Lasix) 40 mg PO DAILY [facility] Last Admin: 01/12/18 10:20 Dose: 40 mg Gabapentin (Neurontin) 600 mg PO TID [facility] PRN Reason: Protocol Last Admin: 01/12/18 10:20 Dose: 600 mg Insulin Detemir (Levemir) 20 unit SC [facility] Last Admin: 01/11/18 21:25 Dose: 20 units Insulin Human Lispro (Humalog Med) 0 units SC [facility] PRN Reason: Protocol Last Admin: 01/12/18 06:42 Dose: Not Given Levothyroxine Sodium (Synthroid) 125 mcg PO 0600 [facility] Last Admin: 01/12/18 05:46 Dose: 125 mcg Magnesium Oxide (Mag-Ox) 400 mg PO BID [facility] Last Admin: 01/12/18 10:20 Dose: 400 mg Oxycodone/Acetaminophen (Percocet 2.5/325 Mg Tab) 1 tab PO Q6H PRN PRN Reason: moderate pain ( 4-7) Pantoprazole Sodium (Protonix Ec Tab) 40 mg PO 0600 [facility] Last Admin: 01/12/18 05:46 Dose: 40 mg Warfarin Sodium (Coumadin) 5 mg PO 1800 [facility] PRN Reason: Protocol Last Admin: 01/11/18 17:55 Dose: 5 mg Physical Exam - Constitutional Appears: Non-toxic, Chronically Ill - Head Exam Head Exam: NORMAL INSPECTION - ENT Exam ENT Exam: Mucous Membranes Moist - Neck Exam Neck exam: Negative for: Meningismus - Respiratory Exam Respiratory Exam: Decreased Breath Sounds - Cardiovascular Exam Cardiovascular Exam: +S1, +S2 - GI/Abdominal Exam GI & Abdominal Exam: Soft. absent: Tenderness - Skin Additional comments: erythematous macular lesions on the left side of the chin Results - Vital Signs Recent Vital Signs: Last Vital Signs Temp 98.3 F 01/11/18 16:00 Pulse 84 01/12/18 10:19 Resp 18 01/11/18 16:00 BP 124/59 L 01/12/18 10:20 Pulse Ox 95 01/11/18 16:00 - Labs Labs: Laboratory Results - last 24 hr 01/11/18 01/11/18 01/12/18 16:03 21:15 05:26 PT INR POC Glucose (mg/dL) 225 H 235 H 101 01/12/18 01/12/18 10:15 11:58 PT 16.8 H INR 1.45 H POC Glucose (mg/dL) 161 H Assessment & Plan - Assessment and Plan (Free Text) Plan: Assessment R/O herpes zoster on left side of the face acute CVA atrial fibrillation chronic CHF COPD history of DVT CAD S/P CABG history of herpes zoster Plan Started renally-adjusted Valtrex and will watch out for development of lesions on the left side of the face will monitor clinically patient started on Cefpodoxime by PMD
[2018-01-12] MEDS: Insulin Detemir 100 units/ml Vial (Levemir) SC SCH (21:33)
[2018-01-13] MEDS: Albuterol-Ipratrop 3 mg / 0.5 (3 ml) UD IH SCH ×4 (01:12→19:30)
[2018-01-13] MEDS: Pantoprazole 40 mg EC Tab PO SCH (05:13)
[2018-01-13] MEDS: Levothyroxine 125 MCG TAB PO SCH (05:13)
[2018-01-13] MEDS: Insulin Lispro (humaLOG) MEDIUM Coverage SC SCH ×4 (06:36→21:52)
--- NOTE | 2018-01-13 09:00 | PN ---
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 The patient is stable. Doing physical therapy and occupational therapy. Doing pulmonary toilet. The patient is on diagnosis as per the family. She is also a DNR. The patient is stable today. No change in her physical examination. Does have some rhonchi and rales in the lung mohan, otherwise she is better. Her speech is back to baseline and she is tolerating her diet and physical therapy. Kosta Duggan MD
[2018-01-13] MEDS: diltiaZEM 180 mg/24 Hours CD Cap PO SCH (10:13)
[2018-01-13] MEDS: Magnesium Oxide 400 mg Tab UD PO SCH ×2 (10:15→17:30)
[2018-01-13] MEDS: Insulin Detemir 100 units/ml Vial (Levemir) SC SCH (21:54)
--- NOTE | 2018-01-13 23:06 | PN ---
DATE: 01/13/2018 SUBJECTIVE: Patient is in bed in no acute distress, nontoxic. PHYSICAL EXAMINATION: VITAL SIGNS: Temperature is 98, blood pressure is 118/40, respiratory rate of 18. HEENT: Unremarkable. NECK: Supple. LUNGS: Have decreased breath sounds. HEART: Normal S1 and S2. ABDOMEN: Soft, nontender. LABORATORY EXAMINATION: Reveals the patient's laboratories are reviewed. Microbiology reveals the patient's urine culture from 01/07/2018, no growth. Review of orders reveals the patient to be on Valtrex p.o. ASSESSMENT AND PLAN: This is a 77 years old; the herpes zoster on the left side of the face appears to be improving with acute cerebrovascular accident, atrial fibrillation, chronic congestive heart failure, chronic obstructive lung disease, history of deep venous thrombosis, on day number 2 of Valtrex. We will follow with you. Max Davey MD
[2018-01-14] MEDS: Albuterol-Ipratrop 3 mg / 0.5 (3 ml) UD IH SCH ×4 (01:23→20:33)
[2018-01-14] MEDS: Pantoprazole 40 mg EC Tab PO SCH (05:48)
[2018-01-14] MEDS: Levothyroxine 125 MCG TAB PO SCH (05:48)
[2018-01-14] MEDS: Insulin Lispro (humaLOG) MEDIUM Coverage SC SCH ×4 (06:30→22:00)
--- NOTE | 2018-01-14 09:04 | PN ---
DATE: 01/14/2018 SUBJECTIVE: A 77-year-old white female with history of CVA, history of chronic atrial fibrillation, history of GI bleed in the past, carotid stenosis in the past. 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 The patient has a long history of COPD and tobacco abuse. The patient is made aware of her diagnosis today as per instructions from the family, her daughter. The patient will be continued on outpatient palliative care hospice for home hospice and followed as an outpatient. The patient has expressive aphasia, unchanged. She is on Coumadin. Her INR today is only 1.45, she will have an extra dose of Coumadin and her dose will be increased to 6 mg from 5 mg and she will have a dose of 7.5 today. PHYSICAL EXAMINATION: LUNGS: The patient has rhonchi in both lungs bilaterally, which are chronic. HEART: Regularly regular, but controlled with decreased response. ABDOMEN: Soft. EXTREMITIES: Without cyanosis, clubbing or edema. Kosta Duggan MD
[2018-01-14] MEDS: diltiaZEM 180 mg/24 Hours CD Cap PO SCH (11:02)
[2018-01-14] MEDS: Magnesium Oxide 400 mg Tab UD PO SCH ×2 (11:03→17:14)
--- NOTE | 2018-01-14 17:09 | PN ---
DATE: 01/14/2018 SUBJECTIVE: The patient is in bed, in no acute distress, nontoxic. PHYSICAL EXAMINATION: VITAL SIGNS: Temperature is 97, blood pressure is 120/60, respiratory rate of 18. HEENT: Examination of HEENT is unremarkable. NECK: Supple. LUNGS: Have decreased breath sounds. HEART: Normal S1 and S2. ABDOMEN: Soft, nontender. LABORATORY DATA: Laboratory examined reveals noted and microbiology is reviewed. ASSESSMENT AND PLAN: A 77-year-old female with herpes zoster on the left side of the face, appears to be improving with acute cerebrovascular accident, congestive heart failure, chronic obstructive lung disease, history of deep venous thrombosis. Day # of Valtrex, would complete 7 days. Review of the orders reveals the patient's . Dr. Duggan's note from today is reviewed. Max Davey MD
[2018-01-14] MEDS: Insulin Detemir 100 units/ml Vial (Levemir) SC SCH (22:01)
[2018-01-15] MEDS: Albuterol-Ipratrop 3 mg / 0.5 (3 ml) UD IH SCH ×4 (01:10→21:10)
[2018-01-15] MEDS: Levothyroxine 125 MCG TAB PO SCH (06:21)
[2018-01-15] MEDS: Pantoprazole 40 mg EC Tab PO SCH (06:21)
[2018-01-15] MEDS: Insulin Lispro (humaLOG) MEDIUM Coverage SC SCH ×4 (06:29→21:48)
[2018-01-15] MEDS: diltiaZEM 180 mg/24 Hours CD Cap PO SCH (09:05)
[2018-01-15] MEDS: Magnesium Oxide 400 mg Tab UD PO SCH ×2 (09:06→17:09)
--- NOTE | 2018-01-15 09:44 | PN ---
DATE: 01/15/2018 SUBJECTIVE: The patient is 77-year-old, admitted with TIA, history of CVA, history of chronic atrial fibrillation, history of carotid artery disease, history of GI bleed in the past, history of COPD. Recently found to have a right upper lobe mass with metastatic adenopathy. The patient is aware of the condition. No biopsy was done as per family. The patient is doing physical therapy and occupational therapy. Most likely, she is discharged home tomorrow. She can follow as an outpatient to continue physical therapy at home. The patient is on Coumadin. INR will be rechecked. Kosta Duggan MD
[2018-01-15] MEDS: Insulin Detemir 100 units/ml Vial (Levemir) SC SCH (21:43)
--- NOTE | 2018-01-16 00:34 | PN ---
DATE: 01/15/2018 SUBJECTIVE: The patient is in bed, in no acute distress, nontoxic, was seen early this morning in room 318. PHYSICAL EXAMINATION: VITAL SIGNS: Temperature is 98, blood pressure is 112/70, respiratory rate of 16. HEENT: Unremarkable. NECK: Supple. LUNGS: Have decreased breath sounds. HEART: Normal S1 and S2. ABDOMEN: Soft, nontender. MEDICATIONS: Review of the medications reveals the patient to be on p.o. valacyclovir. ASSESSMENT AND PLAN: A 77-year-old female, who was seen early this morning in room 318 with herpes zoster on the left side of the face, it appears to be improving, with acute cerebrovascular accident, congestive heart failure, chronic obstructive lung disease, history of deep venous thrombosis; on Valtrex, will complete 7 days. Max Davey MD
[2018-01-16] MEDS: Albuterol-Ipratrop 3 mg / 0.5 (3 ml) UD IH SCH ×2 (03:35→07:20)
[2018-01-16] MEDS: Levothyroxine 125 MCG TAB PO SCH (05:47)
[2018-01-16] MEDS: Pantoprazole 40 mg EC Tab PO SCH (05:47)
[2018-01-16 06:15] VITALS: BP 107/47; PULSE 78; RESP 16; TEMP 97.8; O2SAT 92
[2018-01-16] MEDS: Insulin Lispro (humaLOG) MEDIUM Coverage SC SCH (06:53)
[2018-01-16] MEDS: diltiaZEM 180 mg/24 Hours CD Cap PO SCH (09:02)
[2018-01-16] MEDS: Magnesium Oxide 400 mg Tab UD PO SCH (09:02)
--- NOTE | 2018-01-16 18:29 | CP.PCM.PN ---
Subjective - Date & Time of Evaluation Date of Evaluation: 01/16/18 Time of Evaluation: 09:50 - Subjective Subjective: No fevers, not in distress, left sided facial lesions are improving and dried up. Objective - Vital Signs/Intake and Output Vital Signs (last 24 hours): Temp Pulse Resp BP Pulse Ox 97.8 F 78 16 107/47 L 92 L 01/16/18 06:00 01/16/18 06:00 01/16/18 06:00 01/16/18 09:02 01/16/18 06:00 - Medications Medications: Current Medications Acetaminophen (Tylenol 325mg Tab) 650 mg PO Q4H PRN PRN Reason: temp above 101 Albuterol/Ipratropium (Duoneb 3 Mg/0.5 Mg (3 Ml) Ud) 3 ml IH [id number] [facility] Last Admin: 01/16/18 07:20 Dose: 3 ml Aspirin (Ecotrin) 81 mg PO 0800 [facility] Last Admin: 01/16/18 07:49 Dose: 81 mg Atorvastatin Calcium (Lipitor) 40 mg PO [facility] Last Admin: 01/15/18 21:43 Dose: 40 mg Diltiazem HCl (Cardizem Cd) 180 mg PO DAILY [facility] Last Admin: 01/16/18 09:02 Dose: 180 mg Docusate Sodium (Colace) 100 mg PO TID [facility] Last Admin: 01/16/18 09:02 Dose: 100 mg Furosemide (Lasix) 40 mg PO DAILY [facility] Last Admin: 01/16/18 09:02 Dose: Not Given Gabapentin (Neurontin) 600 mg PO TID [facility] PRN Reason: Protocol Last Admin: 01/16/18 09:03 Dose: 600 mg Insulin Detemir (Levemir) 20 unit SC [facility] Last Admin: 01/15/18 21:43 Dose: 20 units Insulin Human Lispro (Humalog Med) 0 units SC [facility] PRN Reason: Protocol Last Admin: 01/16/18 06:53 Dose: 1 unit Levothyroxine Sodium (Synthroid) 125 mcg PO 0600 [facility] Last Admin: 01/16/18 05:47 Dose: 125 mcg Magnesium Oxide (Mag-Ox) 400 mg PO BID [facility] Last Admin: 01/16/18 09:02 Dose: 400 mg Pantoprazole Sodium (Protonix Ec Tab) 40 mg PO 0600 [facility] Last Admin: 01/16/18 05:47 Dose: 40 mg Valacyclovir HCl (Valtrex) 1 gm PO BID [facility] PRN Reason: Protocol Stop: 01/19/18 18:01 Last Admin: 01/16/18 09:03 Dose: 1 gm Warfarin Sodium (Coumadin) 7.5 mg PO 1800 [facility] PRN Reason: Protocol Last Admin: 01/15/18 17:09 Dose: 7.5 mg - Labs Labs: PT 16.8 SECONDS (9.4-12.5) H 01/12/18 10:15 INR 1.45 (0.93-1.08) H 01/12/18 10:15 - Constitutional Appears: Chronically Ill - ENT Exam ENT Exam: Mucous Membranes Moist Additional comments: left facial lesions are dried up - Neck Exam Neck Exam: absent: Meningismus - Respiratory Exam Respiratory Exam: Decreased Breath Sounds - Cardiovascular Exam Cardiovascular Exam: +S1, +S2 - GI/Abdominal Exam GI & Abdominal Exam: Soft. absent: Tenderness Assessment and Plan - Assessment and Plan (Free Text) Plan: Assessment herpes zoster on left side of the face, clinically improving acute CVA atrial fibrillation chronic CHF COPD history of DVT CAD S/P CABG history of herpes zoster Plan continue renally-adjusted Valtrex day 5 to complete 3-5 more days of therapy
--- NOTE | 2018-01-19 16:45 | DS ---
HISTORY OF PRESENT ILLNESS: The patient is a 77-year-old white female, admitted to the hospital with change in mental status, possible TIA. The patient had underdosed Coumadin. The patient was placed back on Coumadin. She was seen in consultation by Cardiology and Neurology. The patient also was found on CTA to have an abnormality in her chest. A CT of the chest showed a right upper lobe mass with metastatic adenopathy. The patient's family is aware of the diagnosis. No biopsy was done. The patient was made aware of the probable diagnosis. The patient's family is refusing therapy at this point, chemotherapy and radiation therapy. The patient will be discharged home in improved condition after physical therapy and occupational therapy at [facility]. The patient will be followed as an outpatient. FINAL DISCHARGE DIAGNOSES: Chronic obstructive pulmonary disease, transient ischemic attack, history of cerebrovascular accident, history of expressive aphasia, history of carotid artery disease, history of paroxysmal atrial fibrillation and new right upper lobe mass with adenopathy. Kosta Duggan MD
== END 2018-01-16 10:54 | disposition home or self-care (01) | DRG 945 ==
LOC: TRCU 14:01
PROVIDERS: ADMIT Internal Medicine; ATTEND Internal Medicine
PROC: F07Z9FZ Gait Training/Functional Ambulation Treatment using Assistive, Adaptive, Supportive or Protective Equipment (ICD-10-PCS; principal; 2018-01-10)
PROC: F07L6YZ Therapeutic Exercise Treatment of Musculoskeletal System - Lower Back / Lower Extremity using Other Equipment (ICD-10-PCS; 2018-01-10)
PROC: F07Z5ZZ Bed Mobility Treatment (ICD-10-PCS; 2018-01-11)
PROC: F08Z2FZ Grooming/Personal Hygiene Treatment using Assistive, Adaptive, Supportive or Protective Equipment (ICD-10-PCS; 2018-01-12)
PROC: F08Z1FZ Dressing Techniques Treatment using Assistive, Adaptive, Supportive or Protective Equipment (ICD-10-PCS; 2018-01-12)
DX: R53.83 Other fatigue (principal); C34.11 Malignant neoplasm of upper lobe, right bronchus or lung; J44.1 Chronic obstructive pulmonary disease with (acute) exacerbation; C77.9 Secondary and unspecified malignant neoplasm of lymph node, unspecified; I48.0 Paroxysmal atrial fibrillation; I48.2 Chronic atrial fibrillation; I11.0 Hypertensive heart disease with heart failure; I50.9 Heart failure, unspecified; I25.10 Atherosclerotic heart disease of native coronary artery without angina pectoris; E11.9 Type 2 diabetes mellitus without complications; B02.9 Zoster without complications; I65.29 Occlusion and stenosis of unspecified carotid artery; Z66 Do not resuscitate; Z79.01 Long term (current) use of anticoagulants; Z79.82 Long term (current) use of aspirin; I69.320 Aphasia following cerebral infarction; Z87.891 Personal history of nicotine dependence; Z95.1 Presence of aortocoronary bypass graft; Z95.5 Presence of coronary angioplasty implant and graft; Z79.4 Long term (current) use of insulin; Z86.718 Personal history of other venous thrombosis and embolism; Z91.040 Latex allergy status; Z88.2 Allergy status to sulfonamides

== ENCOUNTER 2018-07-22 06:51 | Inpatient (IN) | payer MEDICARE ==
[2018-07-22 06:54] VITALS: BMI 23.7
[2018-07-22 07:25] LABS: BASO # 0.08 K/mm3 (0.0-2.0); BASO % 0.8 % (0.0-3.0); EOS % 0.2 % (1.5-5.0); GRAN # 7.4 (1.4-6.5); GRAN % 77.8 % (50.0-68.0); HEMOGLOBIN 15.3 g/dL (12.0-16.0); LYMPH # 1.1 (1.2-3.4); LYMPH % 11.4 % (22.0-35.0); MEAN CELL VOLUME 86.3 fl (80.0-105.0); MEAN CORPUSCULAR HEMOGLOBIN 26.9 pg (25.0-35.0); MEAN CORPUSCULAR HGB CONC 31.2 g/dl (31.0-37.0); MEAN PLATELET VOLUME 9.8 fl (7.0-11.0); MONO # 0.9 (0.1-0.6); MONO % 9.8 % (1.0-6.0); RBC 5.68 10^6/uL (3.5-6.1); RED CELL DISTRIBUTION WIDTH 16.6 % (11.5-14.5); WHITE BLOOD COUNT 9.5 10^3/uL (4.5-11.0)
--- NOTE | 2018-07-22 07:25 | ED PDOC ---
Arrival/HPI - General Chief Complaint: Respiratory Distress Time Seen by Provider: 07/22/18 07:03 Historian: Patient - History of Present Illness Narrative History of Present Illness (Text): 07/22/18 07:22 77 year old female, whose past medical history includes diabetes, COPD, CHF, lung mass (not being treated), A-fib on Coumadin, CVA, shingles pancreatitis, TIA, and CABG, presents to the emergency department for worsening shortness of breath since this morning. Patient is on bipap on arrival. She denies fevers, chills, headache, dizziness, chest pain, abdominal pain, nausea, vomiting, diarrhea, back pain, neck pain, or any other complaint. Time/Duration: Prior to Arrival Symptom Onset: Gradual Symptom Course: Worsening Activities at Onset: Light Context: Home Past Medical History - Provider Review Nursing Documentation Reviewed: Yes - Infectious Disease Hx of Infectious Diseases: None - Tetanus Immunization Tetanus Immunization: Unknown - Cardiac Hx Cardiac Disorders: Yes Hx Congestive Heart Failure: Yes Hx Hypertension: Yes - Pulmonary Hx Respiratory Disorders: Yes Hx Chronic Obstructive Pulmonary Disease (COPD): Yes (+home nebulizer) - Neurological Hx Neurological Disorder: Yes HX Cerebrovascular Accident: Yes - HEENT Hx HEENT Disorder: Yes ([place]/glasses) - Renal Hx Renal Disorder: No - Endocrine/Metabolic Hx Endocrine Disorders: Yes Hx Diabetes Mellitus Type 2: Yes - Hematological/Oncological Hx Blood Disorders: Yes Hx Shingles: Yes (H/O IN JULY, left face) - Integumentary Hx Dermatological Disorder: No - Musculoskeletal/Rheumatological Hx Musculoskeletal Disorders: Yes Hx Falls: Yes - Gastrointestinal Hx Gastrointestinal Disorders: Yes (ULCER,GALL BLADDER DISEASE,CHOLECYSTECTOMY,) - Genitourinary/Gynecological Hx Genitourinary Disorders: No - Psychiatric Hx Psychophysiologic Disorder: Yes Hx Anxiety: Yes Hx Depression: No Hx Emotional Abuse: No Hx Physical Abuse: No Hx Substance Use: No - Surgical History Hx Appendectomy: Yes Hx Cholecystectomy: Yes Hx Mastectomy: Yes (left mastectomy) Hx Open Heart Surgery: Yes Other/Comment: QUADRUPLE BYPASS,OPEN HEART,CARDIAC STENT X 1 - Anesthesia Hx Anesthesia: Yes Hx Anesthesia Reactions: No Hx Malignant Hyperthermia: No - Suicidal Assessment Feels Threatened In Home Enviroment: No Family/Social History - Physician Review Nursing Documentation Reviewed: Yes Family/Social History: No Known Family HX Smoking Status: Former Smoker Hx Alcohol Use: No Hx Substance Use: No Hx Substance Use Treatment: No Allergies/Home Meds Allergies/Adverse Reactions: Allergies latex Allergy (Verified 07/22/18 12:22) RASH Sulfa (Sulfonamide Antibiotics) Allergy (Verified 07/22/18 12:22) RASH rubber Allergy (Uncoded 07/22/18 12:22) RASH tape Allergy (Uncoded 07/22/18 12:22) RASH Home Medications: Home Meds Medication Instructions Recorded Confirmed RX: Alprazolam [Xanax] 0.25 mg PO BID PRN 11/04/12 07/22/18 RX: Atorvastatin Calcium [Lipitor] 40 mg PO HS 11/04/12 07/22/18 RX: Levothyroxine [Synthroid] 125 mcg PO DAILY 09/11/16 07/22/18 RX: Insulin Lispro Mix 75/25 See Protocol SC BID 10/20/16 07/22/18 [HumaLOG Mix 75/25] RX: Warfarin [Coumadin] 6 mg PO DAILY 01/03/18 07/22/18 PARoxetine [Paxil] 20 mg PO DAILY 07/22/18 07/22/18 Review of Systems - Physician Review All systems were reviewed & negative as marked: Yes - Review of Systems Constitutional: absent: Fevers Respiratory: SOB Cardiovascular: absent: Chest Pain Gastrointestinal: absent: Abdominal Pain, Diarrhea, Nausea, Vomiting Musculoskeletal: absent: Back Pain, Neck Pain Neurological: absent: Headache, Dizziness Physical Exam Vital Signs Reviewed: Yes Vital Signs Pulse Resp BP Pulse Ox 07/22/18 07:08 98 H 22 160/71 H 99 Temperature: Afebrile Blood Pressure: Hypertensive Pulse: Tachycardic Respiratory Rate: Normal Appearance: Positive for: Well-Appearing, Non-Toxic, Comfortable Pain Distress: None Mental Status: Positive for: Alert and Oriented X 3 - Systems Exam Head: Present: Atraumatic, Normocephalic Pupils: Present: PERRL Extroacular Muscles: Present: EOMI Conjunctiva: Present: Normal Mouth: Present: Moist Mucous Membranes Neck: Present: Normal Range of Motion Respiratory/Chest: Present: Wheezes (diffuse wheezing bilaterally). No: Respiratory Distress, Accessory Muscle Use Cardiovascular: Present: Regular Rate and Rhythm, Normal S1, S2. No: Murmurs Abdomen: No: Tenderness, Distention, Peritoneal Signs Back: Present: Normal Inspection Upper Extremity: Present: Normal Inspection. No: Cyanosis, Edema Lower Extremity: Present: Normal Inspection. No: Edema Neurological: Present: GCS=15, CN II-XII Intact, Speech Normal Skin: Present: Warm, Dry, Normal Color. No: Rashes Psychiatric: Present: Alert, Oriented x 3, Normal Insight, Normal Concentration Medical Decision Making ED Course and Treatment: 07/22/18 07:24 Impression: 77 year old female who presents to the emergency department complaining of shortness of breath. Plan: -- VBG -- EKG -- Labs -- Chest X-ray -- Duoneb -- Solu-medrol -- Urinalysis -- Reassess and disposition Prior Visits: Notes and results from previous visits were reviewed. Progress Notes: EKG reviewed, shows: A-fib at [address]/T wave changes. Poor tracing secondary to artifact. 07/22/18 07:45 Family at bedside confirm patient is DNR/ DNI. 07/22/18 08:21 Chest X-ray reviewed, shows: IMPRESSION: Stable cardiomegaly. No pulmonary vascular congestion. Resolution of prior bilateral infiltrates. 07/22/18 14:38 dni dnr tolerating biapap. accepted hospitalist amanda james. - Lab Interpretations I have reviewed the lab results: Yes - RAD Interpretation Radiology Orders: 07/22/18 07:12 CHEST PORTABLE [RAD] Stat - EKG Interpretation Interpreted by ED Physician: Yes Type: 12 lead EKG - Medication Orders Current Medication Orders: Albuterol/Ipratropium (Duoneb 3 Mg/0.5 Mg (3 Ml) Ud) 3 ml IH Q15M [facility] Stop: 07/22/18 07:46 Discontinued Medications Methylprednisolone (Solu-Medrol) 125 mg IVP STAT STA Stop: 07/22/18 07:15 - Scribe Statement The provider has reviewed the documentation as recorded by the Cheri Chaudhari Provider Scribe Attestation: All medical record entries made by the Scribe were at my direction and personally dictated by me. I have reviewed the chart and agree that the record accurately reflects my personal performance of the history, physical exam, medical decision making, and the department course for this patient. I have also personally directed, reviewed, and agree with the discharge instructions and disposition. Disposition/Present on Arrival - Present on Arrival Any Indicators Present on Arrival: No History of DVT/PE: No History of Uncontrolled Diabetes: No Urinary Catheter: No History of Decub. Ulcer: No History Surgical Site Infection Following: Orthopedic Procedures - Disposition Have Diagnosis and Disposition been Completed?: Yes Diagnosis: COPD (chronic obstructive pulmonary disease), Hyperkalemia Disposition: HOSPITALIZED Disposition Time: 12:30 Condition: FAIR
[2018-07-22 07:26] LABS: VENOUS BLOOD GAS BASE EXCESS 1.8 mmol/L (0.0-2.0); VENOUS BLOOD GAS PO2 33 mm/Hg (30-55)
[2018-07-22] MEDS: Albuterol-Ipratrop 3 mg / 0.5 (3 ml) UD IH SCH ×4 (07:26→19:15)
[2018-07-22 07:34] LABS: INR 1.31; PARTIAL THROMBOPLASTIN TIME 35.4 Seconds (25.1-36.5); PROTHROMBIN TIME 15.2 SECONDS (9.4-12.5)
[2018-07-22 07:51] LABS: ALB/GLOB RATIO 1.3 (1.1-1.8); ALBUMIN 4.3 g/dL (3.0-4.8); ALT/SGPT 23 U/L (7-56); AST/SGOT 24 U/L (14-36); BLOOD UREA NITROGEN 22 mg/dL (7-21); CALCIUM 9.1 mg/dL (8.4-10.5); GFR NON-AFRICAN AMERICAN 54
[2018-07-22 07:52] LABS: B-TYPE NATRIURETIC PEPTIDE 982 pg/mL (0-450); TROPONIN I 0.04 ng/mL
[2018-07-22] MEDS ORDERED: Sod Polystyrene Sulf 15 gm/60 ml Susp PR STA (07:53)
--- NOTE | 2018-07-22 08:09 | RAD ---
Date of service: 07/22/2018 HISTORY: sob COMPARISON: Portable chest 01/09/2018. FINDINGS: LUNGS: Resolution of prior bilateral infiltrates. No acute infiltrate identified bilaterally. PLEURA: No significant pleural effusion identified, no pneumothorax apparent. CARDIOVASCULAR: Calcific atherosclerotic changes are seen related to the thoracic aorta. Stable mild cardiomegaly. No pulmonary vascular congestion. OSSEOUS STRUCTURES: Sternotomy wires reiterated. VISUALIZED UPPER ABDOMEN: Normal. OTHER FINDINGS: None. IMPRESSION: Stable cardiomegaly. No pulmonary vascular congestion. Resolution of prior bilateral infiltrates.
[2018-07-22] MEDS ORDERED: Dextrose 50% SYRINGE Inj (50 ml) IV PRN (08:57)
[2018-07-22 09:06] LABS: ARTERIAL BLOOD GAS HCO3 27.8 mmol/L (21-28); ARTERIAL BLOOD GAS O2 SAT 99.8 % (95-98); ARTERIAL BLOOD GAS PCO2 54 mm/Hg (35-45); ARTERIAL BLOOD GAS PH 7.32 (7.35-7.45); ARTERIAL BLOOD GAS TCO2 29.5 mmol.L (22-28)
--- NOTE | 2018-07-22 09:14 | CP.PCM.HP ---
<Sal Kumar - Last Filed: 07/22/18 10:17> History of Present Illness - History of Present Illness History of Present Illness: PGY-2 medicine H&P note for Dr Mendez Mrs Harrell is a 77 year old female with a PMHx of RUL perihilar lung mass (not being treated), IDDM2, COPD on home O2, AFib on coumadin, CVA in 12/2017, left-sided breast cancer s/p lumpectomy 15 years ago, CAD with hx of CABG, CHF, HTN, shingles (on right side of face), HTN, TIA, pancreatitis who was brought in by ambulance for shortness of breath. History was provided by daughter who lives with the patient. Patient was in her usual state of health yesterday however this morning daughter noticed the patient was having trouble breathing and was in distress. The daughter immediately called an ambulance and brought her to the ED. The patient was already on bipap on arrival to ED. There was no chest pain, fevers, GI issues such as diarrhea/constipation/abdominal pain, or any other complaint. The diagnosis of lung cancer was made in 12/2017 and it was deemed inoperable at that time. The patient is DNR/DNI. PMD: Dr Duggan [employer] Press Operator: Dr Sarmiento PMHx: RUL perihilar lung mass (not being treated), IDDM2, COPD on home O2, AFib on coumadin, CVA in 12/2017, CAD with hx of CABG, CHF, HTN, shingles (on right side of face), HTN, TIA, pancreatitis PSHx: appendectomy, cholecystectomy, hysterectomy, left-sided lumpectomy to treat breast cancer 15 years ago, CABG Allergies: latex, sulfa containing drugs Home Meds: coumadin 6mg po qd, paxil 20mg po qd, synthroid 125mcg po qd, lispro mix 75/25 sc bid, gabapentin 600mg po tid, lasix 40mg po qd, digoxin 0.125mg po qd, lipitor 40mg po hs, xanax 0.25mg po bid prn, lisinopril 5mg po qd FamHx: sister with breast cancer - alive; mother from DVT/PE, father from unknown causes SocialHx: current smoker - unknown amount, no alcohol use, lives at home with daughter, 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[employer] [place] Present on Admission - Present on Admission Any Indicators Present on Admission: No Review of Systems - Review of Systems All systems: reviewed and no additional remarkable complaints except (as mentioned in HPI) Past Patient History - Infectious Disease Hx of Infectious Diseases: None - Tetanus Immunizations Tetanus Immunization: Unknown - Past Social History Smoking Status: Former Smoker - CARDIAC Hx Cardiac Disorders: Yes Hx Congestive Heart Failure: Yes Hx Hypertension: Yes - PULMONARY Hx Respiratory Disorders: Yes Hx Chronic Obstructive Pulmonary Disease (COPD): Yes (+home nebulizer) - NEUROLOGICAL Hx Neurological Disorder: Yes HX Cerebrovascular Accident: Yes - HEENT Hx HEENT Problems: Yes ([place]/glasses) - RENAL Hx Chronic Kidney Disease: No - ENDOCRINE/METABOLIC Hx Endocrine Disorders: Yes Hx Diabetes Mellitus Type 2: Yes - HEMATOLOGICAL/ONCOLOGICAL Hx Blood Disorders: Yes Hx Shingles: Yes (H/O IN JULY, left face) - INTEGUMENTARY Hx Dermatological Problems: No - MUSCULOSKELETAL/RHEUMATOLOGICAL Hx Musculoskeletal Disorders: Yes Hx Falls: Yes - GASTROINTESTINAL Hx Gastrointestinal Disorders: Yes (ULCER,GALL BLADDER DISEASE,CHOLECYSTECTOMY,) - GENITOURINARY/GYNECOLOGICAL Hx Genitourinary Disorders: No - PSYCHIATRIC Hx Psychophysiologic Disorder: Yes Hx Anxiety: Yes Hx Depression: No Hx Emotional Abuse: No Hx Physical Abuse: No Hx Substance Use: No - SURGICAL HISTORY Hx Appendectomy: Yes Hx Cholecystectomy: Yes Hx Mastectomy: Yes (left mastectomy) Hx Open Heart Surgery: Yes Other/Comment: QUADRUPLE BYPASS,OPEN HEART,CARDIAC STENT X 1 - ANESTHESIA Hx Anesthesia: Yes Hx Anesthesia Reactions: No Hx Malignant Hyperthermia: No Meds Allergies/Adverse Reactions: Allergies Allergy/AdvReac Type Severity Reaction Status Date / Time latex Allergy RASH Verified 07/22/18 12:22 Sulfa (Sulfonamide Allergy RASH Verified 07/22/18 12:22 Antibiotics) rubber Allergy RASH Uncoded 07/22/18 12:22 tape Allergy RASH Uncoded 07/22/18 12:22 Physical Exam - Constitutional Appears: No Acute Distress, Chronically Ill - Head Exam Head Exam: ATRAUMATIC, NORMAL INSPECTION - Eye Exam Eye Exam: EOMI, Normal appearance, PERRL. absent: Scleral icterus - ENT Exam ENT Exam: Mucous Membranes Dry - Neck Exam Neck exam: Positive for: Normal Inspection - Respiratory Exam Respiratory Exam: Accessory Muscle Use, Wheezes - Cardiovascular Exam Cardiovascular Exam: Tachycardia, Irregular Rhythm, +S1, +S2, Systolic Murmur - GI/Abdominal Exam GI & Abdominal Exam: Normal Bowel Sounds, Soft. absent: Tenderness - Extremities Exam Extremities exam: Positive for: normal capillary refill, normal inspection, pedal pulses present - Neurological Exam Neurological exam: Alert, Oriented x3 - Skin Skin Exam: Intact, Normal Color, Warm Results - Vital Signs Recent Vital Signs: Last Vital Signs Temp Pulse 96 H 07/22/18 09:03 Resp 20 07/22/18 09:03 BP 114/55 L 07/22/18 09:03 Pulse Ox 98 07/22/18 09:03 - Labs Result Diagrams: 07/22/18 07:10 07/22/18 07:10 Labs: Laboratory Results - last 24 hr 07/22/18 07/22/18 07/22/18 07:10 07:10 07:10 WBC 9.5 RBC 5.68 Hgb 15.3 D Hct 49.0 H MCV 86.3 MCH 26.9 MCHC 31.2 RDW 16.6 H Plt Count 152 MPV 9.8 Gran % 77.8 H Lymph % (Auto) 11.4 L [place] % (Auto) 9.8 H Eos % (Auto) 0.2 L Baso % (Auto) 0.8 Gran # 7.40 H Lymph # (Auto) 1.1 L [place] # (Auto) 0.9 H Eos # (Auto) 0.0 Baso # (Auto) 0.08 PT 15.2 H INR 1.31 APTT 35.4 pO2 33 VBG pH 7.20 L VBG pCO2 83.0 H* VBG HCO3 32.4 H VBG Total CO2 34.9 H VBG O2 Sat (Calc) 58.8 VBG Base Excess 1.8 VBG Potassium 5.4 H Sodium 136.0 Chloride 97.0 L Glucose 233 H Lactate 1.7 FiO2 21.0 Potassium Carbon Dioxide Anion Gap BUN Creatinine Est GFR ( Amer) Est GFR (Non-Af Amer) Random Glucose Calcium Magnesium Total Bilirubin AST ALT Alkaline Phosphatase Lactate Dehydrogenase Total Creatine Kinase Troponin I NT-Pro-B Natriuret Pep Total Protein Albumin Globulin Albumin/Globulin Ratio Venous Blood Potassium 5.4 H Digoxin 07/22/18 07/22/18 07:10 07:10 WBC RBC Hgb Hct MCV MCH MCHC RDW Plt Count MPV Gran % Lymph % (Auto) [place] % (Auto) Eos % (Auto) Baso % (Auto) Gran # Lymph # (Auto) [place] # (Auto) Eos # (Auto) Baso # (Auto) PT INR APTT pO2 VBG pH VBG pCO2 VBG HCO3 VBG Total CO2 VBG O2 Sat (Calc) VBG Base Excess VBG Potassium Sodium 137 Chloride 100 Glucose Lactate FiO2 Potassium 5.8 H* D Carbon Dioxide 31 Anion Gap 11 BUN 22 H Creatinine 1.0 Est GFR ( Amer) > 60 Est GFR (Non-Af Amer) 54 Random Glucose 228 H Calcium 9.1 Magnesium 2.0 Total Bilirubin 0.9 AST 24 ALT 23 Alkaline Phosphatase 71 Lactate Dehydrogenase 638 Total Creatine Kinase 57 Troponin I 0.04 D NT-Pro-B Natriuret Pep 982 H Total Protein 7.7 Albumin 4.3 Globulin 3.4 Albumin/Globulin Ratio 1.3 Venous Blood Potassium Digoxin 1.2 Assessment & Plan - Assessment and Plan (Free Text) Plan: Mrs Harrell is a 77 year old female who is DNR/DNI with a PMHx of RUL perihilar lung mass diagnosed in 12/2017 (not being treated), IDDM2, COPD on home O2, AFib on coumadin, CVA in 12/2017, left-sided breast cancer s/p lumpectomy 15 years ago, CAD with hx of CABG, CHF, HTN, postherpetic neuralgiashingles (on right side of face), HTN, TIA, pancreatitis who was brought in by ambulance for shortness of breath: Respiratory Distress -likely 2/2 to underlying RUL perihilar lung mass with COPD component * patient does not wish to discuss cancer diagnosis -patient on home O2 -VBG showed chronic CO2 retention with pH of 7.2 and CO2 at 83 -resume bipap (saturating at 98% on bipap) -pulmonary consult, Dr Michael callahan scheduled q6h -solumedrol 40mg ivp qd -f/u FLU swab AFib -initial EKG showed afib w/ rate of 108 -resume home coumadin 6mg po qd * INR subtherapeutic at 1.3 * daily INR checks -therapeutic lovenox 60mg ivp q12h until INR therapeutic -resume home digoxin 0.25mg po qd (digoxin level was drawn which was normal) Hyperkalemia -K+ 5.8 on admission -ED administered 15g kayexalate * repeat BMP in afternoon -will also receive insulin for her DM2 -no ekg changes indicative of hyperkalemia IDDM2 -normally takes humalog sliding scale sc bid at home -accuchecks achs with low dose insulin sliding scale HTN -resume home lisinopril 5mg po qd Diastolic CHF -latest echo from 12/2017 showed LVEF 50%, mild global hypokinesis, mild MVR, mild-moderate TR, mild pulm HTN, mild aortic calcification -probnp 982 -resume home lasix 40mg po qd CAD -resume home lipitor 40mg po hs for secondary prevention Hypothyroidism -resume home med synthroid 125mcg po qd Tobacco Use Disorder -nicotine 14mg/24 hours TD qd Postherpetic Neuralgia -had shingles on left side of face in 12/2017 -resume home gabapentin 600mg po tid PPX -SCDs -already on AO for Afib -HHD w/ mod carb consistency <RangNehemiah childersa - Last Filed: 07/25/18 13:20> Results - Vital Signs Recent Vital Signs: Last Vital Signs Temp 98.9 F 07/23/18 18:00 Pulse 125 H 07/23/18 18:00 Resp 18 07/23/18 18:00 BP 120/51 L 07/23/18 18:00 Pulse Ox 91 L 07/23/18 06:00 - Labs Result Diagrams: 07/23/18 05:30 07/23/18 05:15 Attending/Attestation - Attestation I have personally seen and examined this patient.: Yes I have fully participated in the care of the patient.: Yes I have reviewed all pertinent clinical information: Yes Notes (Text): 07/25/18 13:13 Attending note; Patient seen and examined with the resident in ER. Patient currently on BIPAP. Patient is mildly lethargic. detail History from patient's family and chart review. Patient is a 77 year old female with a PMHx of RUL perihilar lung mass , not biopsied, (not being treated), IDDM2, COPD on home O2, AFib on coumadin, CVA in 12/2017, left-sided breast cancer s/p lumpectomy 15 years ago, CAD with hx of CABG, CHF, HTN, shingles (on right side of face), HTN, TIA, pancreatitis who was brought in by ambulance for shortness of breath. Currently on BiPAP. Pulmonary evaluation requested. Continue DuoNeb when necessary. Continue IV Solu-Medrol. A. fib; rate controlled. Subtherapeutic INR. Bridge with subcutaneous Lovenox and Coumadin. Hyperkalemia; treated with IV insulin, DuoNeb and Kayexalate. Started on diet with aspiration precautions. Patient's medical condition explained to the patient family in detail. Planning for comfort care. Prognosis is poor secondary to multiple medical problems. Patient is DNI DNR . Upon discharge the patient will follow-up with PMD Dr. Duggan. 07/25/18 13:18
[2018-07-22] MEDS: Levothyroxine 125 MCG TAB PO SCH (10:17)
[2018-07-22] MEDS: Enoxaparin 60 mg Syringe SC SCH ×2 (10:28→22:00)
[2018-07-22] MEDS: Insulin Regular 1 UNITS/0.01 ML ML SC SCH ×3 (12:00→21:57)
[2018-07-22] MEDS ORDERED: Sodium Chloride 0.9% 1,000 ML IV SCH (13:15)
[2018-07-22 13:28] LABS: URINE BILIRUBIN NEGATIVE (NEGATIVE); URINE BLOOD TRACE-INTACT (NEGATIVE); URINE GLUCOSE (UA) NEGATIVE (NEGATIVE); URINE LEUKOCYTE ESTERASE NEGATIVE Leu/uL (NEGATIVE); URINE PROTEIN 100 mg/dL (<30 mg/dL); URINE UROBILINOGEN 0.2 E.U./dL (<1 E.U./dL)
[2018-07-22 13:30] LABS: URINE APPEARANCE TURBID (CLEAR); URINE COLOR YELLOW (YELLOW)
[2018-07-22 13:33] LABS: URINE BACTERIA TRACE /hpf; URINE HYALINE CAST 0 - 2 /hpf; URINE RBC NEGATIVE /hpf (0-2); URINE WBC 0 - 2 /hpf (0-6)
[2018-07-22] MEDS ORDERED: Digoxin 125 mcg (0.125 mg) Tab PO SCH (14:00)
--- NOTE | 2018-07-22 14:08 | CP.PCM.CON ---
History of Present Illness - History of Present Illness History of Present Illness: PULMONARY CONSULT REASON FOR CONSULT: COPD HPI Patient is 77yo female with PMHx of RUL perihilar lung mass (not being treated), IDDM2, COPD on home O2, AFib on coumadin, CVA in 12/2017, left-sided breast cancer s/p lumpectomy 15 years ago, CAD with hx of CABG, CHF, HTN, shingles (on right side of face), HTN, TIA, pancreatitis who presented to the hospital via ambulance for SOB. History limited to the chart. Pt states she came in for SOB, cannot provide further details. Patient ntoed to have CO2 retention palced on BIPAP, with improvement in ABG. No endorsed history of fever, chills, cough, chest pain, palpitations, [place], dizziness. No other constitutional symptoms. Pt is DNR/DNI PMHx: RUL perihilar lung mass (not on treatment), IDDM2, COPD on home O2, AFib on coumadin, CVA in 12/2017, CAD with hx of CABG, CHF, HTN, TIA, pancreatitis PSHx: appendectomy, cholecystectomy, hysterectomy, left-sided lumpectomy to treat breast cancer 15 years ago, CABG Allergies: latex, sulfa containing drugs Home Meds: As per EMR FamHx: breast cancer , DVT/PE SocialHx: current smoker - unknown amount, no alcohol use, lives at home with daughter Review of Systems - Review of Systems Review of Systems: as per HPI Past Patient History - Infectious Disease Hx of Infectious Diseases: None - Tetanus Immunizations Tetanus Immunization: Unknown - Past Social History Smoking Status: Former Smoker - CARDIAC Hx Cardiac Disorders: Yes Hx Congestive Heart Failure: Yes Hx Hypertension: Yes - PULMONARY Hx Respiratory Disorders: Yes Hx Chronic Obstructive Pulmonary Disease (COPD): Yes (+home nebulizer) - NEUROLOGICAL Hx Neurological Disorder: Yes HX Cerebrovascular Accident: Yes - HEENT Hx HEENT Problems: Yes ([place]/glasses) - RENAL Hx Chronic Kidney Disease: No - ENDOCRINE/METABOLIC Hx Endocrine Disorders: Yes Hx Diabetes Mellitus Type 2: Yes - HEMATOLOGICAL/ONCOLOGICAL Hx Blood Disorders: Yes Hx Shingles: Yes (H/O IN JULY, left face) - INTEGUMENTARY Hx Dermatological Problems: No - MUSCULOSKELETAL/RHEUMATOLOGICAL Hx Musculoskeletal Disorders: Yes Hx Falls: Yes - GASTROINTESTINAL Hx Gastrointestinal Disorders: Yes (ULCER,GALL BLADDER DISEASE,CHOLECYSTECTOMY,) - GENITOURINARY/GYNECOLOGICAL Hx Genitourinary Disorders: No - PSYCHIATRIC Hx Psychophysiologic Disorder: Yes Hx Anxiety: Yes Hx Depression: No Hx Emotional Abuse: No Hx Physical Abuse: No Hx Substance Use: No - SURGICAL HISTORY Hx Appendectomy: Yes Hx Cholecystectomy: Yes Hx Mastectomy: Yes (left mastectomy) Hx Open Heart Surgery: Yes Other/Comment: QUADRUPLE BYPASS,OPEN HEART,CARDIAC STENT X 1 - ANESTHESIA Hx Anesthesia: Yes Hx Anesthesia Reactions: No Hx Malignant Hyperthermia: No Meds Allergies/Adverse Reactions: Allergies Allergy/AdvReac Type Severity Reaction Status Date / Time latex Allergy RASH Verified 07/22/18 12:22 Sulfa (Sulfonamide Allergy RASH Verified 07/22/18 12:22 Antibiotics) rubber Allergy RASH Uncoded 07/22/18 12:22 tape Allergy RASH Uncoded 07/22/18 12:22 - Medications Medications: Current Medications Albuterol/Ipratropium (Duoneb 3 Mg/0.5 Mg (3 Ml) Ud) 3 ml IH [id number] [facility] Alprazolam (Xanax) 0.25 mg PO BID PRN; Protocol PRN Reason: Anxiety Stop: 07/29/18 08:54 Atorvastatin Calcium (Lipitor) 40 mg PO HS [facility] Cyanocobalamin (Vitamin B12 1000 Mcg/Ml Inj) 1,000 mcg IM DAILY [facility] Stop: 07/24/18 10:01 Dextrose (Dextrose 50% Inj) 0 ml IV STAT PRN; Protocol PRN Reason: Hypoglycemia Protocol Digoxin (Digoxin) 0.125 mg PO 1400 [facility] Enoxaparin Sodium (Lovenox) 60 mg SC Q12H HEATHER; Protocol Last Admin: 07/22/18 10:28 Dose: 60 mg Furosemide (Lasix) 40 mg PO DAILY [facility] Last Admin: 07/22/18 10:08 Dose: 40 mg Gabapentin (Neurontin) 600 mg PO TID [facility]; Protocol Last Admin: 07/22/18 10:18 Dose: 600 mg Dextrose (Dextrose 5% In Water 1000 Ml) 1,000 mls @ 0 mls/hr IV .Q0M PRN; Protocol PRN Reason: Hypoglycemia Protocol Sodium Chloride (Sodium Chloride 0.9%) 1,000 mls @ 75 mls/hr IV .[id number] [facility] Stop: 07/23/18 02:34 Insulin Human Regular (Humulin R) 0 units SC ACHS [facility]; Protocol Last Admin: 07/22/18 12:00 Dose: 3 unit Levothyroxine Sodium (Synthroid) 125 mcg PO DAILY [facility] Last Admin: 07/22/18 10:17 Dose: 125 mcg Lisinopril (Zestril) 5 mg PO DAILY [facility] Methylprednisolone (Solu-Medrol) 40 mg IVP DAILY [facility] Nicotine (Nicoderm Cq) 1 patch TD DAILY [facility] Last Admin: 07/22/18 10:08 Dose: Not Given Paroxetine HCl (Paxil) 20 mg PO DAILY [facility] Last Admin: 07/22/18 10:17 Dose: 20 mg Warfarin Sodium (Coumadin) 6 mg PO DAILY [facility]; Protocol Physical Exam - Constitutional Appears: Non-toxic, No Acute Distress, Older Than Stated Age, Chronically Ill - Head Exam Head Exam: NORMAL INSPECTION - Eye Exam Eye Exam: Normal appearance - ENT Exam ENT Exam: Mucous Membranes Moist - Respiratory Exam Respiratory Exam: NORMAL BREATHING PATTERN - Cardiovascular Exam Cardiovascular Exam: REGULAR RHYTHM, +S1, +S2 - GI/Abdominal Exam GI & Abdominal Exam: Normal Bowel Sounds, Soft - Extremities Exam Extremities exam: Positive for: normal inspection - Neurological Exam Neurological exam: Alert - Skin Skin Exam: Normal Color, Warm Results - Vital Signs Recent Vital Signs: Last Vital Signs Temp 98.4 F 07/22/18 07:08 Pulse 87 07/22/18 12:11 Resp 20 07/22/18 12:11 BP 128/55 L 07/22/18 12:11 Pulse Ox 97 07/22/18 12:11 - Labs Result Diagrams: 07/22/18 07:10 07/22/18 07:10 Labs: Laboratory Results - last 24 hr 07/22/18 07/22/18 07/22/18 07:10 07:10 07:10 WBC 9.5 RBC 5.68 Hgb 15.3 D Hct 49.0 H MCV 86.3 MCH 26.9 MCHC 31.2 RDW 16.6 H Plt Count 152 MPV 9.8 Gran % 77.8 H Lymph % (Auto) 11.4 L [place] % (Auto) 9.8 H Eos % (Auto) 0.2 L Baso % (Auto) 0.8 Gran # 7.40 H Lymph # (Auto) 1.1 L [place] # (Auto) 0.9 H Eos # (Auto) 0.0 Baso # (Auto) 0.08 PT 15.2 H INR 1.31 APTT 35.4 pCO2 pO2 33 HCO3 ABG pH ABG Total CO2 ABG O2 Saturation ABG Base Excess ABG Potassium VBG pH 7.20 L VBG pCO2 83.0 H* VBG HCO3 32.4 H VBG Total CO2 34.9 H VBG O2 Sat (Calc) 58.8 VBG Base Excess 1.8 VBG Potassium 5.4 H Sodium 136.0 Chloride 97.0 L Glucose 233 H Lactate 1.7 FiO2 21.0 Inspiratory BiPAP Potassium Carbon Dioxide Anion Gap BUN Creatinine Est GFR ( Amer) Est GFR (Non-Af Amer) Random Glucose Calcium Phosphorus Magnesium Total Bilirubin AST ALT Alkaline Phosphatase Lactate Dehydrogenase Total Creatine Kinase Troponin I NT-Pro-B Natriuret Pep Total Protein Albumin Globulin Albumin/Globulin Ratio Vitamin B12 Arterial Blood Potassium Venous Blood Potassium 5.4 H Urine Color Urine Appearance Urine pH Ur Specific [place] Urine Protein Urine Glucose (UA) Urine Ketones Urine Blood Urine Nitrate Urine Bilirubin Urine Urobilinogen Ur Leukocyte Esterase Urine RBC Urine WBC Urine Bacteria Hyaline Casts Digoxin Influenza Typ A,B (EIA) 07/22/18 07/22/18 07/22/18 07:10 07:10 07:10 WBC RBC Hgb Hct MCV MCH MCHC RDW Plt Count MPV Gran % Lymph % (Auto) [place] % (Auto) Eos % (Auto) Baso % (Auto) Gran # Lymph # (Auto) [place] # (Auto) Eos # (Auto) Baso # (Auto) PT INR APTT pCO2 pO2 HCO3 ABG pH ABG Total CO2 ABG O2 Saturation ABG Base Excess ABG Potassium VBG pH VBG pCO2 VBG HCO3 VBG Total CO2 VBG O2 Sat (Calc) VBG Base Excess VBG Potassium Sodium 137 Chloride 100 Glucose Lactate FiO2 Inspiratory BiPAP Potassium 5.8 H* D Carbon Dioxide 31 Anion Gap 11 BUN 22 H Creatinine 1.0 Est GFR ( Amer) > 60 Est GFR (Non-Af Amer) 54 Random Glucose 228 H Calcium 9.1 Phosphorus 4.4 Magnesium 2.0 Total Bilirubin 0.9 AST 24 ALT 23 Alkaline Phosphatase 71 Lactate Dehydrogenase 638 Total Creatine Kinase 57 Troponin I 0.04 D NT-Pro-B Natriuret Pep 982 H Total Protein 7.7 Albumin 4.3 Globulin 3.4 Albumin/Globulin Ratio 1.3 Vitamin B12 211 L Arterial Blood Potassium Venous Blood Potassium Urine Color Urine Appearance Urine pH Ur Specific [place] Urine Protein Urine Glucose (UA) Urine Ketones Urine Blood Urine Nitrate Urine Bilirubin Urine Urobilinogen Ur Leukocyte Esterase Urine RBC Urine WBC Urine Bacteria Hyaline Casts Digoxin 1.2 Influenza Typ A,B (EIA) 07/22/18 07/22/18 07/22/18 09:00 11:43 13:05 WBC RBC Hgb Hct MCV MCH MCHC RDW Plt Count MPV Gran % Lymph % (Auto) [place] % (Auto) Eos % (Auto) Baso % (Auto) Gran # Lymph # (Auto) [place] # (Auto) Eos # (Auto) Baso # (Auto) PT INR APTT pCO2 54 H pO2 190.0 H HCO3 27.8 ABG pH 7.32 L ABG Total CO2 29.5 H ABG O2 Saturation 99.8 H ABG Base Excess 0.7 ABG Potassium 4.6 VBG pH VBG pCO2 VBG HCO3 VBG Total CO2 VBG O2 Sat (Calc) VBG Base Excess VBG Potassium Sodium 134.0 Chloride 101.0 Glucose 255 H Lactate 1.1 FiO2 60.0 Inspiratory BiPAP 12 Potassium Carbon Dioxide Anion Gap BUN Creatinine Est GFR ( Amer) Est GFR (Non-Af Amer) Random Glucose Calcium Phosphorus Magnesium Total Bilirubin AST ALT Alkaline Phosphatase Lactate Dehydrogenase Total Creatine Kinase Troponin I NT-Pro-B Natriuret Pep Total Protein Albumin Globulin Albumin/Globulin Ratio Vitamin B12 Arterial Blood Potassium 4.6 Venous Blood Potassium Urine Color Yellow Urine Appearance Turbid Urine pH 6.0 Ur Specific [place] >= 1.030 Urine Protein 100 H Urine Glucose (UA) Negative Urine Ketones Negative Urine Blood Trace-intact H Urine Nitrate Negative Urine Bilirubin Negative Urine Urobilinogen 0.2 Ur Leukocyte Esterase Negative Urine RBC Negative Urine WBC 0 - 2 Urine Bacteria Trace Hyaline Casts 0 - 2 Digoxin Influenza Typ A,B (EIA) Negative for flu a/b Assessment & Plan - Assessment and Plan (Free Text) Assessment: 77yo female with SOB, and COPD exacerbation, Lung Ca SOB COPD exacerbation Lung CA Recommend: - titrate off BIPAP, duonebs PRN, supp o2 - Solumedrol 40mg IV BID - Pulmicort BID - would DC Lasix - need collateral information from family regarding Lung malignancy, and its course of treatment, currently not on treatment as per documentation - Palliative care consult - DVT ppx
[2018-07-22 15:57] VITALS: PULSE 82
[2018-07-22 16:07] LABS: BLOOD UREA NITROGEN 25 mg/dL (7-21); CALCIUM 8.6 mg/dL (8.4-10.5); GFR NON-AFRICAN AMERICAN > 60
[2018-07-22] MEDS ORDERED: Influenza Vaccine 60 mcg/0.5 mL SYR (4YR UP) IM ONE (16:31)
[2018-07-22] MEDS ORDERED: Pneumococcal 23-Valent Vaccine IM ONE (16:31)
[2018-07-22] MEDS: MethylPREDNISolone 40 mg Vial IVP SCH (18:23)
[2018-07-22] MEDS: Budesonide 0.25 mg/2 ml Inhal Susp UD IH SCH (19:15)
--- NOTE | 2018-07-22 23:51 | CARD ---
APPROVED REPORT Date of service: 07/22/2018 EKG Measurement Heart [id number] <Conclusion> Atrial fibrillation with rapid ventricular response Rightward axis RSR' or QR pattern in V1 suggests right ventricular conduction delay ST & T wave abnormality, consider anterolateral ischemia or digitalis effect Abnormal ECG
[2018-07-23] MEDS: Albuterol-Ipratrop 3 mg / 0.5 (3 ml) UD IH SCH ×3 (01:09→13:01)
[2018-07-23 05:59] LABS: BASO # 0.02 K/mm3 (0.0-2.0); BASO % 0.2 % (0.0-3.0); GRAN % 85.5 % (50.0-68.0); HEMOGLOBIN 14.7 g/dL (12.0-16.0); LYMPH # 0.7 (1.2-3.4); LYMPH % 5.1 % (22.0-35.0); MEAN CELL VOLUME 88.3 fl (80.0-105.0); MEAN CORPUSCULAR HEMOGLOBIN 26.4 pg (25.0-35.0); MEAN CORPUSCULAR HGB CONC 29.9 g/dl (31.0-37.0); MEAN PLATELET VOLUME 10.2 fl (7.0-11.0); MONO # 1.2 (0.1-0.6); MONO % 9.2 % (1.0-6.0); RBC 5.56 10^6/uL (3.5-6.1); RED CELL DISTRIBUTION WIDTH 16.8 % (11.5-14.5); WHITE BLOOD COUNT 12.9 10^3/uL (4.5-11.0)
[2018-07-23 06:09] LABS: INR 1.31; PARTIAL THROMBOPLASTIN TIME 40.6 Seconds (25.1-36.5); PROTHROMBIN TIME 15.2 SECONDS (9.4-12.5)
[2018-07-23 06:38] VITALS: O2SAT 91
[2018-07-23] MEDS: Budesonide 0.25 mg/2 ml Inhal Susp UD IH SCH (07:26)
[2018-07-23 07:31] LABS: ALB/GLOB RATIO 1.2 (1.1-1.8); BLOOD UREA NITROGEN 30 mg/dL (7-21); GFR NON-AFRICAN AMERICAN > 60
[2018-07-23 07:41] LABS: ALT/SGPT 47 U/L (7-56); AST/SGOT 50 U/L (14-36)
[2018-07-23] MEDS ORDERED: Insulin Regular 1 UNITS/0.01 ML ML SC SCH (07:42)
[2018-07-23] MEDS ORDERED: Morphine 2 mg/ml ISec IVP STA (07:54)
--- NOTE | 2018-07-23 08:04 | PCM.RRT ---
<Coleen Powers - Last Filed: 07/23/18 08:09> EXCHANGE OPERATOR Nurse Assessment - Situation Date: 07/23/18 Time EXCHANGE OPERATOR was called: 07:40 EXCHANGE OPERATOR Responder Arrival Time: 07:45 EXCHANGE OPERATOR Location:: [address] [place] [address] EXCHANGE OPERATOR Reason for Call: Respiratory Distress EXCHANGE OPERATOR Called By: RN - IV IV Inserted during EXCHANGE OPERATOR?: No - Respiratory Oxygen Delivery Method: BiPAP @% Was the Patient Intubated?: No Was the Patient Placed on a Ventilator?: No - Diagnostic Test Ordered EKG: Yes Chest X-Ray: Yes CT Scan: No - Stat Labs Ordered EXCHANGE OPERATOR Stat Labs Ordered: TROPONIN CPR started during EXCHANGE OPERATOR?: No - Vital Signs Vital Sign: Rapid Response Vital Sign Blood Pressure 172/67 Pulse Rate 81 Oxygen Saturation 96 - Finger Stick Blood Glucose Finger Stick Blood Glucose: 256 - Time EXCHANGE OPERATOR Ended Time EXCHANGE OPERATOR Ended: 07:56 - Vital Signs at end of EXCHANGE OPERATOR Vital Signs at end of EXCHANGE OPERATOR: Rapid Response End Vital Sign Blood Pressure 167/63 Pulse Rate 100 O2 Sat by Pulse Oximetry 98 - Recommendations Notifications: Attending Physician I.Reason for EXCHANGE OPERATOR - A) Acute Change in Patient: Subjective: 77 year old female with a PMH of RUL perihilar lung mass (not being treated), COPD on home oxygen, DM, AFib on coumadin, CVA in 12/2017, left-sided breast cancer s/p lumpectomy 15 years ago, CAD with hx of CABG, CHF, HTN, shingles (on right side of face), HTN, TIA, pancreatitis who presented to the hospital via EMS for respiratory distress likely 2/2 RUL mass had EXCHANGE OPERATOR called this morning for respiratory distress after nursing staff found patient with O2 sat in the low 80's. She was on bipap prior to EXCHANGE OPERATOR, and FiO2 was increased from 80% to 100% with resulting O2 sat of 95% while on bipap. BP noted to be 172/67 with HR of 110. Of note, patient is DNI/DNR. During evaluation, patient seemed altered likely from CO2 narcosis. Last dose of xanax was given earlier in the night. She is on digoxin for history of afib on coumadin. - Respiratory Oxygen Delivery Method: BiPAP @% - Extremities Exam Additional comments: - Constitutional Appears: No Acute Distress, Chronically Ill - Head Exam Head Exam: ATRAUMATIC, NORMAL INSPECTION - Eye Exam Eye Exam: EOMI, Normal appearance, PERRL. absent: Scleral icterus - ENT Exam ENT Exam: Mucous Membranes Dry - Neck Exam Neck exam: Positive for: Normal Inspection - Respiratory Exam Respiratory Exam: Accessory Muscle Use, Wheezes. No respiratory distress present - Cardiovascular Exam Cardiovascular Exam: Tachycardia, Irregular Rhythm, +S1, +S2, Systolic Murmur - GI/Abdominal Exam GI & Abdominal Exam: Normal Bowel Sounds, Soft. absent: Tenderness - Extremities Exam Extremities exam: Positive for: normal capillary refill, normal inspection, pedal pulses present - Neurological Exam Neurological exam: Lethargic - Skin Skin Exam: Intact, Normal Color, Warm Plan - Assessment of Findings&Treatment Plan 77 year old female with a PMH of RUL perihilar lung mass (not being treated), COPD on home oxygen, DM, AFib on coumadin, CVA in 12/2017, left-sided breast cancer s/p lumpectomy 15 years ago, CAD with hx of CABG, CHF, HTN, shingles (on right side of face), HTN, TIA, pancreatitis who presented to the hospital via EMS for respiratory distress likely 2/2 RUL mass had EXCHANGE OPERATOR called this morning for respiratory distress after nursing staff found patient with O2 sat in the low 80's. Patient is DNI/DNR. Plan: Increase bipap to 100% FiO2 CXR 12 lead EKG Mg, Phos Morphine 0.5mg <Indigo Rayo R - Last Filed: 07/26/18 12:20> EXCHANGE OPERATOR Nurse Assessment - Vital Signs Vital Sign: Rapid Response Vital Sign Blood Pressure 172/67 Pulse Rate 81 Oxygen Saturation 96 - Vital Signs at end of EXCHANGE OPERATOR Vital Signs at end of EXCHANGE OPERATOR: Rapid Response End Vital Sign Blood Pressure 167/63 Pulse Rate 100 O2 Sat by Pulse Oximetry 98 Attending/Attestation - Attestation I have personally seen and examined this patient.: Yes I have fully participated in the care of the patient.: Yes I have reviewed all pertinent clinical information, including history, physical exam and plan: Yes Notes (Text): Patient seen and examined by me with resident at 7:42AM on 07/23/18. Case discussed with resident. Agree with above with following additions/correction Rapid response called at 7:40AM for respiratory distress. Patient on BIPAP. Settings adjusted. Chest xray ordered. Patient altered. Complained of chest pain. Given morphine. Blood work ordered. Patient is DNR/DNI. Patient with CO2 narcosis. Family notified. Vitals reviewed. Cardiovascular: Tachycardic. Irregularly irregular rhythm.No murmurs, rubs, or gallops appreciated Pulmonary: Tachypenic. Decreased breath sounds. No rhonchi, rales, or wheezing appreciated. Gastrointestinal: Soft, nondistended. Nontender. Positive bowel sounds all 4 quadrants. No guarding. Musculoskeletal: Moves all extremities. No edema appreciated. Central nervous system: Awake and alert, on BIPAP. Altered.
[2018-07-23 08:30] LABS: TROPONIN I 0.09 ng/mL
--- NOTE | 2018-07-23 09:40 | RAD ---
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 PLEURA: No significant pleural effusion identified, no pneumothorax apparent. CARDIOVASCULAR: Aortic calcification Mild cardiomegaly mild vascular and interstitial congestion OSSEOUS STRUCTURES: Sternal wires VISUALIZED UPPER ABDOMEN: Normal. OTHER FINDINGS: None. IMPRESSION: Mild cardiomegaly and mild vascular congestion
[2018-07-23] MEDS ORDERED: MethylPREDNISolone 40 mg Vial IVP SCH (10:00)
--- NOTE | 2018-07-23 10:55 | CP.PCM.PN ---
<Edel Doe - Last Filed: 07/23/18 12:52> Subjective - Date & Time of Evaluation Date of Evaluation: 07/23/18 Time of Evaluation: 07:45 - Subjective Subjective: internal medicine progress note for Dr. Rayo Patient seen and examined this am at bedside. Patient is altered/confused and unable to answer questions. No acute respiratory distress noted. Discussed with family during rounds goals of care. Family would like to discuss together and give decisions later in the day. 12 point ROS unobtainable d/t pt mental status. Objective - Vital Signs/Intake and Output Vital Signs (last 24 hours): Temp Pulse Resp BP Pulse Ox 97.5 F L 114 H 22 161/85 H 91 L 07/23/18 06:00 07/23/18 10:09 07/23/18 06:00 07/23/18 06:00 07/23/18 06:00 Intake and Output: 07/23/18 07/23/18 06:59 18:59 Intake Total 375 Balance 375 - Medications Medications: Current Medications Albuterol/Ipratropium (Duoneb 3 Mg/0.5 Mg (3 Ml) Ud) 3 ml IH [id number] [facility] Last Admin: 07/23/18 07:26 Dose: 3 ml Alprazolam (Xanax) 0.25 mg PO BID PRN; Protocol PRN Reason: Anxiety Stop: 07/29/18 08:54 Last Admin: 07/23/18 04:57 Dose: 0.25 mg Atorvastatin Calcium (Lipitor) 40 mg PO HS [facility] Last Admin: 07/22/18 22:00 Dose: 40 mg Budesonide (Pulmicort Respules) 0.25 mg IH [id number] [facility] Last Admin: 07/23/18 07:26 Dose: 0.25 mg Cyanocobalamin (Vitamin B12 1000 Mcg/Ml Inj) 1,000 mcg IM DAILY [facility] Stop: 07/24/18 10:01 Last Admin: 07/22/18 15:57 Dose: 1,000 mcg Dextrose (Dextrose 50% Inj) 0 ml IV STAT PRN; Protocol PRN Reason: Hypoglycemia Protocol Digoxin (Digoxin) 0.125 mg PO 1400 [facility] Last Admin: 07/22/18 15:56 Dose: 0.125 mg Enoxaparin Sodium (Lovenox) 60 mg SC Q12H [facility]; Protocol Last Admin: 07/22/18 22:00 Dose: 60 mg Furosemide (Lasix) 40 mg PO DAILY [facility] Last Admin: 07/22/18 10:08 Dose: 40 mg Gabapentin (Neurontin) 600 mg PO TID [facility]; Protocol Last Admin: 07/22/18 18:21 Dose: 600 mg Dextrose (Dextrose 5% In Water 1000 Ml) 1,000 mls @ 0 mls/hr IV .Q0M PRN; Protocol PRN Reason: Hypoglycemia Protocol Insulin Human Regular (Humulin R) 0 units SC ACHS [facility]; Protocol Levothyroxine Sodium (Synthroid) 125 mcg PO DAILY [facility] Last Admin: 07/22/18 10:17 Dose: 125 mcg Lisinopril (Zestril) 5 mg PO DAILY [facility] Methylprednisolone (Solu-Medrol) 40 mg IVP BID [facility] Last Admin: 07/22/18 18:23 Dose: 40 mg Nicotine (Nicoderm Cq) 1 patch TD DAILY [facility] Last Admin: 07/22/18 10:08 Dose: Not Given Paroxetine HCl (Paxil) 20 mg PO DAILY [facility] Last Admin: 07/22/18 10:17 Dose: 20 mg Warfarin Sodium (Coumadin) 6 mg PO DAILY [facility]; Protocol Last Admin: 07/22/18 18:20 Dose: 6 mg - Labs Labs: 07/23/18 05:30 07/23/18 05:15 PT 15.2 SECONDS (9.4-12.5) H 07/23/18 05:15 INR 1.31 07/23/18 05:15 APTT 40.6 Seconds (25.1-36.5) H 07/23/18 05:15 - Constitutional Appears: Confused, Chronically Ill, Other (acutely ill, bipap in place, pt unable to respond to quesitons) - Head Exam Head Exam: ATRAUMATIC, NORMOCEPHALIC - Eye Exam Eye Exam: EOMI - ENT Exam ENT Exam: Mucous Membranes Moist - Respiratory Exam Additional comments: no longer in respiratory distress after increased O2 on bipap, wide mouth breathing, minimal crackles lower lobes bilaterally - Cardiovascular Exam Cardiovascular Exam: Tachycardia - GI/Abdominal Exam GI & Abdominal Exam: Soft. absent: Distended, Guarding, Tenderness - Extremities Exam Extremities Exam: absent: Calf Tenderness, Pedal Edema - Neurological Exam Neurological Exam: Altered Additional comments: arousable, unable to answer questions - Skin Skin Exam: Dry, Intact, Normal Color, Warm Assessment and Plan - Assessment and Plan (Free Text) Assessment: Mrs Harrell is a 77 year old female who is DNR/DNI with a PMHx of RUL perihilar lung mass diagnosed in 12/2017 (not being treated), IDDM2, COPD on home O2, AFib on coumadin, CVA in 12/2017, left-sided breast cancer s/p lumpectomy 15 years ago, CAD with hx of CABG, CHF, HTN, postherpetic neuralgiashingles (on right side of face), HTN, TIA, pancreatitis who was brought in by ambulance for shortness of breath: Plan: Respiratory Distress -likely 2/2 to underlying RUL perihilar lung mass with COPD component patient does not wish to discuss cancer diagnosis -patient on home O2 -ABG 07/22 CO@ 54, will repeat ABG today for follow up of improvement -BIPAP O2 increased to 100% after [employer] -pulmonary consult, Dr Michael callahan scheduled q6h -solumedrol 40mg ivp qd -flu negative - pt is DNR/ DNI AFib -07/23 EKG showed afib w/ rate of 109 -continue home coumadin 6mg po qd INR subtherapeutic at 1.3 daily INR checks -therapeutic lovenox 60mg ivp q12h until INR therapeutic -resume home digoxin 0.25mg po qd (digoxin level was drawn which was normal) Hyperkalemia (resolved) - K 5 this am - will continue to monitor - repeat labs in am -no ekg changes indicative of hyperkalemia IDDM2 -normally takes humalog sliding scale sc bid at home -accuchecks achs with low dose insulin sliding scale HTN -c/w home lisinopril 5mg po qd Diastolic CHF -latest echo from 12/2017 showed LVEF 50%, mild global hypokinesis, mild MVR, mild-moderate TR, mild pulm HTN, mild aortic calcification -probnp 982 -c/w home lasix 40mg po qd CAD -c/w home lipitor 40mg po hs for secondary prevention Hypothyroidism -c/w home med synthroid 125mcg po qd Tobacco Use Disorder -nicotine 14mg/24 hours TD qd Postherpetic Neuralgia -had shingles on left side of face in 12/2017 -c/w home gabapentin 600mg po tid PPX -SCDs -already on anticoagulants for Afib -HHD w/ mod carb consistency Patient seen, discussed and examined with Dr. Indigo Doe, PGY1 <Indigo Rayo R - Last Filed: 07/26/18 12:14> Objective - Vital Signs/Intake and Output Vital Signs (last 24 hours): Temp Pulse Resp BP Pulse Ox 98.9 F 125 H 18 120/51 L 91 L 07/23/18 18:00 07/23/18 18:00 07/23/18 18:00 07/23/18 18:00 07/23/18 06:00 - Labs Labs: 07/23/18 05:30 07/23/18 05:15 PT 15.2 SECONDS (9.4-12.5) H 07/23/18 05:15 INR 1.31 07/23/18 05:15 APTT 40.6 Seconds (25.1-36.5) H 07/23/18 05:15 Attending/Attestation - Attestation I have personally seen and examined this patient.: Yes I have fully participated in the care of the patient.: Yes I have reviewed all pertinent clinical information, including history, physical exam and plan: Yes Notes (Text): Medical attending covering Dr. Duggan Patient seen and examined by me with resident at 10:25 AM on 07/23/18. Case including HPI, physical exam, and assessment and plan discussed with resident. Agree with above with following additions/corrections. Patient is a 77 year old female with past medical history significant for right upper lobe perihilar lung mass, insulin dependent DM2, COPD on home O2, atrial fibrillation on Coumadin, CVA, left sided breast cancer s/p treatment, CAD s/p CABG, CHF, hypertension, shingles, hypertension, TIA, and pancreatitis that presented to the emergency room with shortness of breath. Patient on BIPAP with some respiratory distress. Patient not answering questio ns. Unable to obtain review of systems from patient. Family at bedside. Case discussed in detail with patients family. Physical exam: General: Awake and alert in mild respiratory distress. HEENT: Normocephalic, atraumatic. Extraocular muscles intact, pupils equal and reactive, no scleral icterus. BIPAP present. Cardiovascular: Irregularly irregular rhythm.No murmurs, rubs, or gallops appreciated Pulmonary: Tachypenic. Decreased breath sounds. No rhonchi, rales, or wheezing appreciated. Gastrointestinal: Soft, nondistended. Nontender. Positive bowel sounds all 4 quadrants. No guarding. Musculoskeletal: Moves all extremities. No edema appreciated. Central nervous system: Awake and alert, on BIPAP. Dermatologic: Skin warm and dry. Assessment and Plan: Patient is a 77 year old female with past medical history significant for right upper lobe perihilar lung mass, insulin dependent DM2, COPD on home O2, atrial fibrillation on Coumadin, CVA, left sided breast cancer s/p treatment, CAD s/p CABG, CHF, hypertension, shingles, hypertension, TIA, and pancreatitis that presented to the emergency room with shortness of breath. 1. Acute respiratory failure with hypoxemia and hypercapnia. Pulmonary following, recommendations appreciated. Continue with BIPAP. Family deciding on possible hospice. Continue nebulizer treatments. Continue solumedrol. Chest xray per radiologist showed mild cardiomegaly and mild vascular congestion. Patient restarted on home Lasix. Patient NPO. 2. Afib with RVR. Cardiology consulted, follow up recommendations. Patient placed on metoprolol IV prn. Continue therapeutic lovenox. Continue Coumadin when no longer NPO. Continue digoxin 3. DM2. Continue insulin sliding scale. Continue to monitor accuchecks. 4. Hypertension. Continue IV metoprolol as needed. 5. History of diastolic CHF. Continue Lasix and digoxin. Continue IV metoprolol. 6. Hyperlipdemia. Lipitor held for now as patient NPO 7. Hypothyroidism. Synthroid held for now as patient is NPO 8. Chest pain in a patient with CAD. Troponins uptrending but within normal limits. Cardiology consulted, follow up recommendations. Family does not want any intervention. 9. Depression and anxiety. Paxil held for now as patient NPO. Xanax also held. Placed on IV Ativan as needed. 10. Tobacco abuse. On nicotine patch 11. Postherpetic neuralgia. Gabapentin on hold as patient is NPO. 12. Patient is DNR/DNI. Family is deciding on hospice care. Case was discussed in detail with family regarding current diagnosis and treatment plan. All questions answered.
[2018-07-23 12:03] LABS: ARTERIAL BLOOD GAS HCO3 32.8 mmol/L (21-28); ARTERIAL BLOOD GAS O2 CAPACITY 21.6 mL/dl (16-24); ARTERIAL BLOOD GAS O2 CONTENT 21.6 ML/dl (15-23); ARTERIAL BLOOD GAS O2 SAT 100.2 % (95-98); ARTERIAL BLOOD GAS TCO2 36.1 mmol.L (22-28)
[2018-07-23 12:11] LABS: ARTERIAL BLOOD GAS PCO2 108 mm/Hg (35-45); ARTERIAL BLOOD GAS PH 7.09 (7.35-7.45)
[2018-07-23] MEDS: Enoxaparin 60 mg Syringe SC SCH (12:59)
[2018-07-23] MEDS: MethylPREDNISolone 40 mg Vial IVP SCH (12:59)
[2018-07-23] MEDS: Levothyroxine 125 MCG TAB PO SCH (13:01)
--- NOTE | 2018-07-23 13:06 | CP.PCM.PN ---
Subjective - Date & Time of Evaluation Date of Evaluation: 07/23/18 Time of Evaluation: 13:00 - Subjective Subjective: Patient seen and examined. On BIPAP, altered, minimally responsive. ABG with worsening CO2 retention, resp acidosis. Appropriate BIPAP settings changes made, IPAP increased to 18. Pt is DNR/DNI Objective - Vital Signs/Intake and Output Vital Signs (last 24 hours): Temp Pulse Resp BP Pulse Ox 97.5 F L 114 H 22 161/85 H 91 L 07/23/18 06:00 07/23/18 10:09 07/23/18 06:00 07/23/18 06:00 07/23/18 06:00 Intake and Output: 07/23/18 07/23/18 06:59 18:59 Intake Total 375 Balance 375 - Medications Medications: Current Medications Albuterol/Ipratropium (Duoneb 3 Mg/0.5 Mg (3 Ml) Ud) 3 ml IH [id number] [facility] Last Admin: 07/23/18 07:26 Dose: 3 ml Alprazolam (Xanax) 0.25 mg PO BID PRN; Protocol PRN Reason: Anxiety Stop: 07/29/18 08:54 Last Admin: 07/23/18 04:57 Dose: 0.25 mg Atorvastatin Calcium (Lipitor) 40 mg PO HS [facility] Last Admin: 07/22/18 22:00 Dose: 40 mg Budesonide (Pulmicort Respules) 0.25 mg IH [id number] [facility] Last Admin: 07/23/18 07:26 Dose: 0.25 mg Cyanocobalamin (Vitamin B12 1000 Mcg/Ml Inj) 1,000 mcg IM DAILY [facility] Stop: 07/24/18 10:01 Last Admin: 07/22/18 15:57 Dose: 1,000 mcg Dextrose (Dextrose 50% Inj) 0 ml IV STAT PRN; Protocol PRN Reason: Hypoglycemia Protocol Digoxin (Digoxin) 0.125 mg PO 1400 [facility] Last Admin: 07/22/18 15:56 Dose: 0.125 mg Enoxaparin Sodium (Lovenox) 60 mg SC Q12H [facility]; Protocol Last Admin: 07/22/18 22:00 Dose: 60 mg Furosemide (Lasix) 40 mg PO DAILY [facility] Last Admin: 07/22/18 10:08 Dose: 40 mg Gabapentin (Neurontin) 600 mg PO TID [facility]; Protocol Last Admin: 07/22/18 18:21 Dose: 600 mg Dextrose (Dextrose 5% In Water 1000 Ml) 1,000 mls @ 0 mls/hr IV .Q0M PRN; Protocol PRN Reason: Hypoglycemia Protocol Insulin Human Regular (Humulin R) 0 units SC ACHS [facility]; Protocol Levothyroxine Sodium (Synthroid) 125 mcg PO DAILY [facility] Last Admin: 07/22/18 10:17 Dose: 125 mcg Lisinopril (Zestril) 5 mg PO DAILY [facility] Methylprednisolone (Solu-Medrol) 40 mg IVP BID [facility] Last Admin: 07/22/18 18:23 Dose: 40 mg Nicotine (Nicoderm Cq) 1 patch TD DAILY [facility] Last Admin: 07/22/18 10:08 Dose: Not Given Paroxetine HCl (Paxil) 20 mg PO DAILY [facility] Last Admin: 07/22/18 10:17 Dose: 20 mg Warfarin Sodium (Coumadin) 6 mg PO DAILY [facility]; Protocol Last Admin: 07/22/18 18:20 Dose: 6 mg - Labs Labs: 07/23/18 05:30 07/23/18 05:15 PT 15.2 SECONDS (9.4-12.5) H 07/23/18 05:15 INR 1.31 07/23/18 05:15 APTT 40.6 Seconds (25.1-36.5) H 07/23/18 05:15 - Constitutional Appears: Toxic, Older Than Stated Age, Confused, Chronically Ill - ENT Exam ENT Exam: Mucous Membranes Dry - Respiratory Exam Respiratory Exam: Decreased Breath Sounds, NORMAL BREATHING PATTERN - Cardiovascular Exam Cardiovascular Exam: REGULAR RHYTHM, +S1, +S2 - GI/Abdominal Exam GI & Abdominal Exam: Soft, Normal Bowel Sounds - Neurological Exam Neurological Exam: Altered Assessment and Plan - Assessment and Plan (Free Text) Assessment: 77yo female with SOB, and COPD exacerbation, Lung Ca SOB COPD exacerbation Lung CA - currently afebrile, BP stable, altered 2/2 CO2 narcosis, worsening resp acidosis; Pt is DNR/DNI - BIPAP changed to 18/5/60% in light of recent ABG - spoke extensively to family at beside, including son Rakesh, who reiterated that the patient would not have wanted any aggressive measures, including CPR or intubation. Pt's family wants to see if the BIPAP settings changes will make any improvement, and if not will discuss palliative care options. Pt is DNR/DNI, to continue on BIPAP - cont with Solumedrol 40mg IV TID - NPO - Pain control - Over all prognosis is extremely poor.
[2018-07-23 14:29] LABS: ARTERIAL BLOOD GAS HCO3 32.2 mmol/L (21-28); ARTERIAL BLOOD GAS HEMOGLOBIN 14.4 g/dL (11.7-17.4); ARTERIAL BLOOD GAS O2 CAPACITY 19.5 mL/dl (16-24); ARTERIAL BLOOD GAS O2 CONTENT 19.1 ML/dl (15-23); ARTERIAL BLOOD GAS O2 SAT 97.7 % (95-98); ARTERIAL BLOOD GAS PH 7.23 (7.35-7.45); ARTERIAL BLOOD GAS TCO2 34.6 mmol.L (22-28)
[2018-07-23 14:31] LABS: ARTERIAL BLOOD GAS PCO2 77 mm/Hg (35-45)
[2018-07-23] MEDS ORDERED: Metoprolol 1 mg/ml Inj IVP PRN ×2 (14:36→14:47)
[2018-07-23] MEDS ORDERED: Morphine 2 mg/ml ISec IVP PRN ×3 (14:51→17:47)
[2018-07-23] MEDS ORDERED: Morphine PCA 1 mg/ml (30ml) 30 ML IV PRN ×2 (18:25→18:36)
[2018-07-23] MEDS ORDERED: DiphenhydrAMINE 50 mg/ml Inj IVP PRN (18:27)
[2018-07-23 18:43] VITALS: BP 120/51; RESP 18; TEMP 98.9
--- NOTE | 2018-07-23 18:46 | CP.PCM.PCO ---
Addendum Addendum: Had long discussion with patient's family including her children at 5:20PM. Family is waiting for evaluation by compassionate care for inpatient hospice. They would like the patient to be placed on hospice care today. Discussed the case with Palliative Care nurse, Nimo Yoder who suggested morphine drip, ativan as needed and scopolomine patch. This was discussed at length with patient's family who are requesting morphine drip and comfort care only. Patient made comfort care only and started on morphine drip 1mg/hr. All questions answered for family. Case also discussed with patient's nurses.
--- NOTE | 2018-07-23 18:46 | CARD ---
APPROVED REPORT Date of service: 07/23/2018 EKG Measurement Heart [id number] <Conclusion> Atrial fibrillation with rapid ventricular response with premature ventricular complexes Incomplete right bundle branch block Nonspecific ST and T wave abnormality, probably digitalis effect Abnormal ECG
[2018-07-23 19:38] VITALS: PULSE 125
--- NOTE | 2018-07-23 22:16 | CARD ---
APPROVED REPORT Date of service: 07/23/2018 EKG Measurement Heart [id number] <Conclusion> Atrial fibrillation with rapid ventricular response Incomplete right bundle branch block Nonspecific ST and T wave abnormality, probably digitalis effect Abnormal ECG
--- NOTE | 2018-07-24 09:22 | CP.PCM.DIS ---
<Edel Doe - Last Filed: 07/24/18 14:43> Provider - Provider Date of Admission: 07/22/18 08:07 Attending physician: Indigo Rayo DO Primary care physician: Kosta Duggan MD Consults: 07/22/18 10:15 Pulmonology Consult Routine Comment: Consulting Provider: Hakeem Grant Consulting Physician: Hakeem Grant Reason for Consult: lung CA; bipap at home? 07/22/18 16:31 Case Management Referral Routine Comment: NEEDS ASSISTANCE AT HOME. LIVES ALONE.D LIVES [facility] Physician Instructions: Reason For Exam: EVALUATION Reason for Referral: Chief Librarian Circulation Department Eval Inpatient CUSTOMER SERVICE OFFICER Core Measures Referral Routine Comment: COPD EXACERBATION Physician Instructions: Reason For Exam: EVALUATION Nursing Referral for Wound Care Routine Comment: AT RISK FOR SKIN BREAKDOWN. Physician Instructions: Reason For Exam: EVALUATION Transition In Care/Readmission Reduction Routine Comment: Physician Instructions: Reason For Exam: EVALUATION 07/22/18 16:41 Nursing Referral for Palliative Care Routine Comment: BREAST CA,LUNG CA Physician Instructions: Reason For Exam: EVALUATION Social Work Referral Routine Comment: DISHCHARGE PLANNING NEEDS ASSISTANCE AT HOME Physician Instructions: Reason For Exam: EVALUATION 07/22/18 16:45 Patient Advocate Consultation ONCE Comment: Physician Instructions: Reason For Exam: EVALUATION 07/23/18 07:58 Consult [Physician Consult] Routine Comment: Consulting Provider: Clayton Sarmiento Consulting Physician: Clayton Sarmiento Reason for Consult: a.fib w/ rvr 07/23/18 21:02 Hospice [Case Management Referral] Routine Comment: Physician Instructions: Reason For Exam: Pt eval and admit to hospice care if appropriate Reason for Referral: Hospice Eval Time Spent in preparation of Discharge (in minutes): 45 Hospital Course - Lab Results Lab Results: Most Recent Lab Values WBC 12.9 10^3/uL (4.5-11.0) H D 07/23/18 05:30 RBC 5.56 10^6/uL (3.5-6.1) 07/23/18 05:30 Hgb 14.7 g/dL (12.0-16.0) 07/23/18 05:30 Hct 49.1 % (36.0-48.0) H 07/23/18 05:30 MCV 88.3 fl (80.0-105.0) 07/23/18 05:30 MCH 26.4 pg (25.0-35.0) 07/23/18 05:30 MCHC 29.9 g/dl (31.0-37.0) L 07/23/18 05:30 RDW 16.8 % (11.5-14.5) H 07/23/18 05:30 Plt Count 173 10^3/uL (120.0-450.0) 07/23/18 05:30 MPV 10.2 fl (7.0-11.0) 07/23/18 05:30 Gran % 85.5 % (50.0-68.0) H 07/23/18 05:30 Lymph % (Auto) 5.1 % (22.0-35.0) L 07/23/18 05:30 Brown % (Auto) 9.2 % (1.0-6.0) H 07/23/18 05:30 Eos % (Auto) 0.0 % (1.5-5.0) L 07/23/18 05:30 Baso % (Auto) 0.2 % (0.0-3.0) 07/23/18 05:30 Gran # 11.00 (1.4-6.5) H 07/23/18 05:30 Lymph # (Auto) 0.7 (1.2-3.4) L 07/23/18 05:30 Brown # (Auto) 1.2 (0.1-0.6) H 07/23/18 05:30 Eos # (Auto) 0.0 (0.0-0.7) 07/23/18 05:30 Baso # (Auto) 0.02 K/mm3 (0.0-2.0) 07/23/18 05:30 PT 15.2 SECONDS (9.4-12.5) H 07/23/18 05:15 INR 1.31 07/23/18 05:15 APTT 40.6 Seconds (25.1-36.5) H 07/23/18 05:15 pCO2 77 mm/Hg (35-45) H* 07/23/18 14:25 pO2 74.0 mm/Hg (80-100) L 07/23/18 14:25 HCO3 32.2 mmol/L (21-28) H 07/23/18 14:25 ABG pH 7.23 (7.35-7.45) L 07/23/18 14:25 ABG Total CO2 34.6 mmol.L (22-28) H 07/23/18 14:25 ABG O2 Saturation 97.7 % (95-98) 07/23/18 14:25 ABG O2 Content 19.1 ML/dl (15-23) 07/23/18 14:25 ABG Base Excess 2.1 mmol/L (-2.0-3.0) 07/23/18 14:25 ABG Hemoglobin 14.4 g/dL (11.7-17.4) 07/23/18 14:25 ABG Carboxyhemoglobin 2.1 % (0.5-1.5) H 07/23/18 14:25 POC ABG HHb (Measured) 2.2 % (0-5) 07/23/18 14:25 ABG Methemoglobin 1.5 % (0.0-3.0) 07/23/18 14:25 ABG O2 Capacity 19.5 mL/dl (16-24) 07/23/18 14:25 ABG Potassium 4.6 mmol/L (3.6-5.2) 07/22/18 09:00 VBG pH 7.20 (7.32-7.43) L 07/22/18 07:10 VBG pCO2 83.0 (40-60) H* 07/22/18 07:10 VBG HCO3 32.4 mmol/l (21-28) H 07/22/18 07:10 VBG Total CO2 34.9 mmol.L (22-28) H 07/22/18 07:10 VBG O2 Sat (Calc) 58.8 % (40-65) 07/22/18 07:10 VBG Base Excess 1.8 mmol/L (0.0-2.0) 07/22/18 07:10 VBG Potassium 5.4 mmol/L (3.6-5.2) H 07/22/18 07:10 Hgb O2 Saturation 94.2 % (95.0-98.0) L 07/23/18 14:25 Sodium 134.0 mmol/L (132-148) 07/22/18 09:00 Chloride 101.0 mmol/L (98-107) 07/22/18 09:00 Glucose 255 mg/dl (65-105) H 07/22/18 09:00 Lactate 1.1 mmol/L (0.7-2.1) 07/22/18 09:00 FiO2 60.0 % 07/23/18 14:25 Inspiratory BiPAP 12 07/22/18 09:00 Sodium 139 mmol/L (132-148) 07/23/18 05:15 Potassium 5.0 mmol/L (3.6-5.0) 07/23/18 05:15 Chloride 104 mmol/L (98-107) 07/23/18 05:15 Carbon Dioxide 29 mmol/L (21-33) 07/23/18 05:15 Anion Gap 11 (10-20) 07/23/18 05:15 BUN 30 mg/dL (7-21) H 07/23/18 05:15 Creatinine 0.9 mg/dl (0.7-1.2) 07/23/18 05:15 Est GFR ( Amer) > 60 07/23/18 05:15 Est GFR (Non-Af Amer) > 60 07/23/18 05:15 POC Glucose (mg/dL) 242 mg/dL (65-110) H 07/23/18 16:37 Random Glucose 296 mg/dL (70-110) H 07/23/18 05:15 Calcium 9.0 mg/dL (8.4-10.5) 07/23/18 05:15 Phosphorus 5.8 mg/dL (2.5-4.5) H 07/23/18 05:30 Magnesium 2.3 mg/dL (1.7-2.2) H 07/23/18 05:30 Total Bilirubin 0.7 mg/dL (0.2-1.3) 07/23/18 05:15 AST 50 U/L (14-36) H D 07/23/18 05:15 ALT 47 U/L (7-56) 07/23/18 05:15 Alkaline Phosphatase 69 U/L (38-126) 07/23/18 05:15 Lactate Dehydrogenase 638 U/L (333-699) 07/22/18 07:10 Total Creatine Kinase 57 U/L (35-230) 07/22/18 07:10 Troponin I 0.09 ng/mL D 07/23/18 05:30 NT-Pro-B Natriuret Pep 982 pg/mL (0-450) H 07/22/18 07:10 Total Protein 7.2 g/dL (5.8-8.3) 07/23/18 05:15 Albumin 4.0 g/dL (3.0-4.8) 07/23/18 05:15 Globulin 3.2 gm/dL 07/23/18 05:15 Albumin/Globulin Ratio 1.2 (1.1-1.8) 07/23/18 05:15 Vitamin B12 211 pg/mL (239-931) L 07/22/18 07:10 Arterial Blood Potassium 4.6 mmol/L (3.6-5.2) 07/22/18 09:00 Venous Blood Potassium 5.4 mmol/L (3.6-5.2) H 07/22/18 07:10 Urine Color Yellow (YELLOW) 07/22/18 13:05 Urine Appearance Turbid (CLEAR) 07/22/18 13:05 Urine pH 6.0 (4.7-8.0) 07/22/18 13:05 Ur Specific [place] >= 1.030 (1.005-1.035) 07/22/18 13:05 Urine Protein 100 mg/dL (<30 mg/dL) H 07/22/18 13:05 Urine Glucose (UA) Negative mg/dL (NEGATIVE) 07/22/18 13:05 Urine Ketones Negative mg/dL (NEGATIVE) 07/22/18 13:05 Urine Blood Trace-intact (NEGATIVE) H 07/22/18 13:05 Urine Nitrate Negative (NEGATIVE) 07/22/18 13:05 Urine Bilirubin Negative (NEGATIVE) 07/22/18 13:05 Urine Urobilinogen 0.2 E.U./dL (<1 E.U./dL) 07/22/18 13:05 Ur Leukocyte Esterase Negative Nora/uL (NEGATIVE) 07/22/18 13:05 Urine RBC Negative /hpf (0-2) 07/22/18 13:05 Urine WBC 0 - 2 /hpf (0-6) 07/22/18 13:05 Urine Bacteria Trace /hpf (NONE) 07/22/18 13:05 Hyaline Casts 0 - 2 /hpf (NONE) 07/22/18 13:05 Digoxin 1.2 ng/mL (0.8-2.0) 07/22/18 07:10 Influenza Typ A,B (EIA) Negative for flu a/b (NEGATIVE) 07/22/18 11:43 - Hospital Course Hospital Course: On admission: Mrs Harrell is a 77 year old female with a PMHx of RUL perihilar lung mass (not being treated), IDDM2, COPD on home O2, AFib on coumadin, CVA in 12/2017, left-sided breast cancer s/p lumpectomy 15 years ago, CAD with hx of CABG, CHF, HTN, shingles (on right side of face), HTN, TIA, pancreatitis who was brought in by ambulance for shortness of breath. History was provided by daughter who lives with the patient. Patient was in her usual state of health yesterday however this morning daughter noticed the patient was having trouble breathing and was in distress. The daughter immediately called an ambulance and brought her to the ED. The patient was already on bipap on arrival to ED. There was no chest pain, fevers, GI issues such as diarrhea/constipation/abdominal pain, or any other complaint. The diagnosis of lung cancer was made in 12/2017 and it was deemed inoperable at that time. The patient is DNR/DNI. During her hospital stay the patient's respiratory status worsened despite alterations being made in her bipap settings before during and after an [employer] called the morning of Hospital Day 1. Patient's family indicated they did not want any invasive procedures for the patient and ultimately later that evening decided to transition the patient to hospice care. Patient was discharged into the care of Hospice service. - Date & Time of H&P Date of H&P: 07/22/18 Time of H&P: 09:05 Discharge Exam - Head Exam Head Exam: ATRAUMATIC, NORMOCEPHALIC - Eye Exam Eye Exam: EOMI - ENT Exam ENT Exam: Mucous Membranes Moist - Respiratory Exam Respiratory Exam: Decreased Breath Sounds, NORMAL BREATHING PATTERN Additional comments: currently on BIPAP - Cardiovascular Exam Cardiovascular Exam: Tachycardia, Irregular Rhythm - GI/Abdominal Exam GI & Abdominal Exam: Soft. absent: Distended, Guarding, Tenderness - Extremities Exam Extremities exam: normal capillary refill, pedal pulses present - Neurological Exam Neurological exam: Alert Additional comments: oriented x1-2 depending on respiratory status - Skin Skin Exam: Dry, Intact, Normal Color, Warm Discharge Plan - Follow Up Plan Condition: FAIR Disposition: TRANSF TO SNF Instructions: Heart Failure (DC), Heart Failure (GEN), Pacemaker (DC), Pacemaker (GEN), Pulmonary Edema (DC), Pulmonary Edema (GEN), Ascites (DC), Ascites (GEN) Additional Instructions: This patient was discharged in order to be readmitted to Hospice care in the same facility per family wishes. Patient will be made comfort care per Hospice protocols. Referrals: Kosta Duggan MD [Primary Care Provider] - <Indigo Rayo - Last Filed: 07/26/18 14:23> Provider - Provider Date of Admission: 07/22/18 08:07 Attending physician: Indigo Rayo DO Primary care physician: Kosta Duggan MD Consults: 07/22/18 10:15 Pulmonology Consult Routine Comment: Consulting Provider: Hakeem Grant Consulting Physician: Hakeem Grant Reason for Consult: lung CA; bipap at home? 07/22/18 16:31 Case Management Referral Routine Comment: NEEDS ASSISTANCE AT HOME. LIVES ALONE.D LIVES [facility] Physician Instructions: Reason For Exam: EVALUATION Reason for Referral: Chief Librarian Circulation Department Eval Inpatient CUSTOMER SERVICE OFFICER Core Measures Referral Routine Comment: COPD EXACERBATION Physician Instructions: Reason For Exam: EVALUATION Nursing Referral for Wound Care Routine Comment: AT RISK FOR SKIN BREAKDOWN. Physician Instructions: Reason For Exam: EVALUATION Transition In Care/Readmission Reduction Routine Comment: Physician Instructions: Reason For Exam: EVALUATION 07/22/18 16:41 Nursing Referral for Palliative Care Routine Comment: BREAST CA,LUNG CA Physician Instructions: Reason For Exam: EVALUATION Social Work Referral Routine Comment: DISHCHARGE PLANNING NEEDS ASSISTANCE AT HOME Physician Instructions: Reason For Exam: EVALUATION 07/22/18 16:45 Patient Advocate Consultation ONCE Comment: Physician Instructions: Reason For Exam: EVALUATION 07/23/18 07:58 Consult [Physician Consult] Routine Comment: Consulting Provider: Clayton Sarmiento Consulting Physician: Clayton Sarmiento Reason for Consult: a.fib w/ rvr 07/23/18 21:02 Hospice [Case Management Referral] Routine Comment: Physician Instructions: Reason For Exam: Pt eval and admit to hospice care if appropriate Reason for Referral: Hospice [facility] Course - Lab Results Lab Results: Most Recent Lab Values WBC 12.9 10^3/uL (4.5-11.0) H D 07/23/18 05:30 RBC 5.56 10^6/uL (3.5-6.1) 07/23/18 05:30 Hgb 14.7 g/dL (12.0-16.0) 07/23/18 05:30 Hct 49.1 % (36.0-48.0) H 07/23/18 05:30 MCV 88.3 fl (80.0-105.0) 07/23/18 05:30 MCH 26.4 pg (25.0-35.0) 07/23/18 05:30 MCHC 29.9 g/dl (31.0-37.0) L 07/23/18 05:30 RDW 16.8 % (11.5-14.5) H 07/23/18 05:30 Plt Count 173 10^3/uL (120.0-450.0) 07/23/18 05:30 MPV 10.2 fl (7.0-11.0) 07/23/18 05:30 Gran % 85.5 % (50.0-68.0) H 07/23/18 05:30 Lymph % (Auto) 5.1 % (22.0-35.0) L 07/23/18 05:30 Brown % (Auto) 9.2 % (1.0-6.0) H 07/23/18 05:30 Eos % (Auto) 0.0 % (1.5-5.0) L 07/23/18 05:30 Baso % (Auto) 0.2 % (0.0-3.0) 07/23/18 05:30 Gran # 11.00 (1.4-6.5) H 07/23/18 05:30 Lymph # (Auto) 0.7 (1.2-3.4) L 07/23/18 05:30 Brown # (Auto) 1.2 (0.1-0.6) H 07/23/18 05:30 Eos # (Auto) 0.0 (0.0-0.7) 07/23/18 05:30 Baso # (Auto) 0.02 K/mm3 (0.0-2.0) 07/23/18 05:30 PT 15.2 SECONDS (9.4-12.5) H 07/23/18 05:15 INR 1.31 07/23/18 05:15 APTT 40.6 Seconds (25.1-36.5) H 07/23/18 05:15 pCO2 77 mm/Hg (35-45) H* 07/23/18 14:25 pO2 74.0 mm/Hg (80-100) L 07/23/18 14:25 HCO3 32.2 mmol/L (21-28) H 07/23/18 14:25 ABG pH 7.23 (7.35-7.45) L 07/23/18 14:25 ABG Total CO2 34.6 mmol.L (22-28) H 07/23/18 14:25 ABG O2 Saturation 97.7 % (95-98) 07/23/18 14:25 ABG O2 Content 19.1 ML/dl (15-23) 07/23/18 14:25 ABG Base Excess 2.1 mmol/L (-2.0-3.0) 07/23/18 14:25 ABG Hemoglobin 14.4 g/dL (11.7-17.4) 07/23/18 14:25 ABG Carboxyhemoglobin 2.1 % (0.5-1.5) H 07/23/18 14:25 POC ABG HHb (Measured) 2.2 % (0-5) 07/23/18 14:25 ABG Methemoglobin 1.5 % (0.0-3.0) 07/23/18 14:25 ABG O2 Capacity 19.5 mL/dl (16-24) 07/23/18 14:25 ABG Potassium 4.6 mmol/L (3.6-5.2) 07/22/18 09:00 VBG pH 7.20 (7.32-7.43) L 07/22/18 07:10 VBG pCO2 83.0 (40-60) H* 07/22/18 07:10 VBG HCO3 32.4 mmol/l (21-28) H 07/22/18 07:10 VBG Total CO2 34.9 mmol.L (22-28) H 07/22/18 07:10 VBG O2 Sat (Calc) 58.8 % (40-65) 07/22/18 07:10 VBG Base Excess 1.8 mmol/L (0.0-2.0) 07/22/18 07:10 VBG Potassium 5.4 mmol/L (3.6-5.2) H 07/22/18 07:10 Hgb O2 Saturation 94.2 % (95.0-98.0) L 07/23/18 14:25 Sodium 134.0 mmol/L (132-148) 07/22/18 09:00 Chloride 101.0 mmol/L (98-107) 07/22/18 09:00 Glucose 255 mg/dl (65-105) H 07/22/18 09:00 Lactate 1.1 mmol/L (0.7-2.1) 07/22/18 09:00 FiO2 60.0 % 07/23/18 14:25 Inspiratory BiPAP 12 07/22/18 09:00 Sodium 139 mmol/L (132-148) 07/23/18 05:15 Potassium 5.0 mmol/L (3.6-5.0) 07/23/18 05:15 Chloride 104 mmol/L (98-107) 07/23/18 05:15 Carbon Dioxide 29 mmol/L (21-33) 07/23/18 05:15 Anion Gap 11 (10-20) 07/23/18 05:15 BUN 30 mg/dL (7-21) H 07/23/18 05:15 Creatinine 0.9 mg/dl (0.7-1.2) 07/23/18 05:15 Est GFR ( Amer) > 60 07/23/18 05:15 Est GFR (Non-Af Amer) > 60 07/23/18 05:15 POC Glucose (mg/dL) 242 mg/dL (65-110) H 07/23/18 16:37 Random Glucose 296 mg/dL (70-110) H 07/23/18 05:15 Calcium 9.0 mg/dL (8.4-10.5) 07/23/18 05:15 Phosphorus 5.8 mg/dL (2.5-4.5) H 07/23/18 05:30 Magnesium 2.3 mg/dL (1.7-2.2) H 07/23/18 05:30 Total Bilirubin 0.7 mg/dL (0.2-1.3) 07/23/18 05:15 AST 50 U/L (14-36) H D 07/23/18 05:15 ALT 47 U/L (7-56) 07/23/18 05:15 Alkaline Phosphatase 69 U/L (38-126) 07/23/18 05:15 Lactate Dehydrogenase 638 U/L (333-699) 07/22/18 07:10 Total Creatine Kinase 57 U/L (35-230) 07/22/18 07:10 Troponin I 0.09 ng/mL D 07/23/18 05:30 NT-Pro-B Natriuret Pep 982 pg/mL (0-450) H 07/22/18 07:10 Total Protein 7.2 g/dL (5.8-8.3) 07/23/18 05:15 Albumin 4.0 g/dL (3.0-4.8) 07/23/18 05:15 Globulin 3.2 gm/dL 07/23/18 05:15 Albumin/Globulin Ratio 1.2 (1.1-1.8) 07/23/18 05:15 Vitamin B12 211 pg/mL (239-931) L 07/22/18 07:10 Arterial Blood Potassium 4.6 mmol/L (3.6-5.2) 07/22/18 09:00 Venous Blood Potassium 5.4 mmol/L (3.6-5.2) H 07/22/18 07:10 Urine Color Yellow (YELLOW) 07/22/18 13:05 Urine Appearance Turbid (CLEAR) 07/22/18 13:05 Urine pH 6.0 (4.7-8.0) 07/22/18 13:05 Ur Specific [place] >= 1.030 (1.005-1.035) 07/22/18 13:05 Urine Protein 100 mg/dL (<30 mg/dL) H 07/22/18 13:05 Urine Glucose (UA) Negative mg/dL (NEGATIVE) 07/22/18 13:05 Urine Ketones Negative mg/dL (NEGATIVE) 07/22/18 13:05 Urine Blood Trace-intact (NEGATIVE) H 07/22/18 13:05 Urine Nitrate Negative (NEGATIVE) 07/22/18 13:05 Urine Bilirubin Negative (NEGATIVE) 07/22/18 13:05 Urine Urobilinogen 0.2 E.U./dL (<1 E.U./dL) 07/22/18 13:05 Ur Leukocyte Esterase Negative Nora/uL (NEGATIVE) 07/22/18 13:05 Urine RBC Negative /hpf (0-2) 07/22/18 13:05 Urine WBC 0 - 2 /hpf (0-6) 07/22/18 13:05 Urine Bacteria Trace /hpf (NONE) 07/22/18 13:05 Hyaline Casts 0 - 2 /hpf (NONE) 07/22/18 13:05 Digoxin 1.2 ng/mL (0.8-2.0) 07/22/18 07:10 Influenza Typ A,B (EIA) Negative for flu a/b (NEGATIVE) 07/22/18 11:43 Attending/Attestation - Attestation I have personally seen and examined this patient.: Yes I have fully participated in the care of the patient.: Yes I have reviewed all pertinent clinical information, including history, physical exam and plan: Yes Notes (Text): Please note this DC summary is for 07/23/18. Patient seen and examined by me with resident at 10:25AM on 07/23/18. Case including discharge plan discussed with resident. Agree with above with following additions/corrections. Patient is a 77 year old female with past medical history significant for right upper lobe perihilar lung mass, insulin dependent DM2, COPD on home O2, atrial fibrillation on Coumadin, CVA, left sided breast cancer s/p treatment, CAD s/p CABG, CHF, hypertension, shingles, hypertension, TIA, and pancreatitis that presented to the emergency room with shortness of breath. Please see H&P for full details. Patient was admitted with respiratory distress, afib with RVR, hyperkalemia, insulin dependent DM2, hypertension, diastolic CHF, CAD, hypothyroidism, tobacco abuse, and postherpetic neuralgia. Chest xray per radiologist showed stable cardiomegaly, no pulmonary vascular congestion, resolution of prior bilateral infiltrates. Pulmonary was consulted. Patient was found to be hypercapnic. Likely also with CO2 narcosis. Patient had rapid response for respiratory distress. BIPAP settings were adjusted. Patient was made NPO and placed on IV medications. Patient was also placed on IV Ativan for anxiety and morphine for chest pain. Troponins were within normal limits but uptrending. Patient was also found to be in afib with RVR. INR was subtherapeutic and therapeutic lovenox was started. Cardiology was consulted. Patient was continued on insulin sliding scale for history of diabetes. Patient was placed on Lipitor for hyperlipidemia and CAD. Patient was continued on Lasix and digoxin for history of CHF, atrial fibrillation, and htn. Patient was continued on synthroid for history of hypothyroidism. Patient was continued on Xanax and paxil for history of depression and anxiety. All oral medications were held once patient was made NPO and required constant BIPAP. Patient was DNR/DNI. Patients family decided to make patient hospice care, comfort care only. Patient was placed on morphine drip and IV Ativan and admitted to hospice. Physical exam: General: Awake and alert in mild respiratory distress. HEENT: Normocephalic, atraumatic. Extraocular muscles intact, pupils equal and reactive, no scleral icterus. BIPAP present. Cardiovascular: Irregularly irregular rhythm.No murmurs, rubs, or gallops appreciated Pulmonary: Tachypenic. Decreased breath sounds. No rhonchi, rales, or wheezing appreciated. Gastrointestinal: Soft, nondistended. Nontender. Positive bowel sounds all 4 quadrants. No guarding. Musculoskeletal: Moves all extremities. No edema appreciated. Central nervous system: Awake and alert, on BIPAP. Dermatologic: Skin warm and dry. Please see chart for full details.
[2018-07-24] MEDS ORDERED: Digoxin 500 mcg/2ml (0.5 mg/2ml) Inj IVP SCH (14:00)
== END 2018-07-23 22:22 | disposition hospice, inpatient (51) | DRG 190 ==
LOC: ED 06:51 → ERH 08:07 → 2RNO 16:49 → 5RSO 07-23 21:05
PROVIDERS: ADMIT Hospitalist; ATTEND Hospitalist
PROC: 5A09457 Assistance with Respiratory Ventilation, 24-96 Consecutive Hours, Continuous Positive Airway Pressure (ICD-10-PCS; principal; 2018-07-22)
DX: J44.1 Chronic obstructive pulmonary disease with (acute) exacerbation (principal); J96.01 Acute respiratory failure with hypoxia; J96.02 Acute respiratory failure with hypercapnia; E87.2 Acidosis; C34.90 Malignant neoplasm of unspecified part of unspecified bronchus or lung; I50.32 Chronic diastolic (congestive) heart failure; B02.29 Other postherpetic nervous system involvement; E87.5 Hyperkalemia; I11.0 Hypertensive heart disease with heart failure; I48.91 Unspecified atrial fibrillation; I25.10 Atherosclerotic heart disease of native coronary artery without angina pectoris; F17.200 Nicotine dependence, unspecified, uncomplicated; E11.9 Type 2 diabetes mellitus without complications; F41.9 Anxiety disorder, unspecified; Z79.01 Long term (current) use of anticoagulants; Z86.73 Personal history of transient ischemic attack (TIA), and cerebral infarction without residual deficits; Z85.3 Personal history of malignant neoplasm of breast; Z80.3 Family history of malignant neoplasm of breast; Z84.89 Family history of other specified conditions; E03.9 Hypothyroidism, unspecified; E78.5 Hyperlipidemia, unspecified; F32.89 Other specified depressive episodes; Z87.19 Personal history of other diseases of the digestive system; Z51.5 Encounter for palliative care; Z66 Do not resuscitate; Z79.4 Long term (current) use of insulin; Z90.12 Acquired absence of left breast and nipple; Z90.49 Acquired absence of other specified parts of digestive tract; Z90.710 Acquired absence of both cervix and uterus; Z95.1 Presence of aortocoronary bypass graft; Z95.5 Presence of coronary angioplasty implant and graft; Z99.81 Dependence on supplemental oxygen; Z91.040 Latex allergy status; Z88.2 Allergy status to sulfonamides; Z91.048 Other nonmedicinal substance allergy status

== ENCOUNTER 2018-07-23 22:26 | Inpatient (IN) | payer OTHER ==
[2018-07-22 06:54] VITALS: BMI 23.7
[2018-07-22 15:57] VITALS: PULSE 82
[2018-07-23] MEDS ORDERED: Morphine PCA 1 mg/ml (30ml) 30 ML IV PRN (23:24)
[2018-07-24 07:44] VITALS: PULSE 0; TEMP 0; O2SAT 0
--- NOTE | 2018-07-24 11:38 | CP.PCM.HP ---
<Edel Doe - Last Filed: 07/24/18 16:04> History of Present Illness - History of Present Illness History of Present Illness: Internal Medicine History and Physical for Dr. Rayo Patient is a 77 yr old female with RUL perihilar lung mass (not being treated), IDDM2, COPD on home O2, AFib on coumadin, CVA in 12/2017, left-sided breast cancer s/p lumpectomy 15 years ago, CAD with hx of CABG, CHF, HTN, shingles (on right side of face), HTN, TIA, pancreatitis who has been transitioned to hospice care per family wishes after being initially admitted for SOB and CO2 narcosis. Patient is currently on bipap and unable to answer questions at this time. PMD: Dr Duggan Oil Expeller: Dr Sarmiento PMHx: RUL perihilar lung mass (not being treated), IDDM2, COPD on home O2, AFib on coumadin, CVA in 12/2017, CAD with hx of CABG, CHF, HTN, shingles (on right side of face), HTN, TIA, pancreatitis PSHx: appendectomy, cholecystectomy, hysterectomy, left-sided lumpectomy to treat breast cancer 15 years ago, CABG Allergies: latex, sulfa containing drugs Home Meds: coumadin 6mg po qd, paxil 20mg po qd, synthroid 125mcg po qd, lispro mix 75/25 sc bid, gabapentin 600mg po tid, lasix 40mg po qd, digoxin 0.125mg po qd, lipitor 40mg po hs, xanax 0.25mg po bid prn, lisinopril 5mg po qd FamHx: sister with breast cancer - alive; mother from DVT/PE, father from unknown causes SocialHx: current smoker - unknown amount, no alcohol use, lives at home with daughter, 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[employer] Present on Admission - Present on Admission Any Indicators Present on Admission: No Review of Systems - Review of Systems Systems not reviewed;Unavailable: Acuity of Condition Past Patient History - Infectious Disease Hx of Infectious Diseases: None - Tetanus Immunizations Tetanus Immunization: Unknown - Past Social History Smoking Status: Former Smoker - CARDIAC Hx Cardiac Disorders: Yes (CAD,CABG,QUADRUPLE BYPASS,CARDIAC STNET X 1) Hx Cardia Arrhythmia: Yes (AFIB ON COUMADIN) Hx Circulatory Problems: Yes Hx Congestive Heart Failure: Yes Hx Hypertension: Yes - PULMONARY Hx Respiratory Disorders: Yes (SMOKED EXTENSIVELY < 20 YRS.,LUNG MASS-LUNG CA (INOPERABLE) 12/2017,) Hx Chronic Obstructive Pulmonary Disease (COPD): Yes (+home nebulizer,[place] O2) - NEUROLOGICAL Hx Neurological Disorder: Yes (NEUROPATHY,HAD SHINGLES RIGHT SIDE OF FACE.) HX Cerebrovascular Accident: Yes - HEENT Hx HEENT Problems: Yes (craig/glasses) - RENAL Hx Chronic Kidney Disease: No - ENDOCRINE/METABOLIC Hx Endocrine Disorders: Yes Hx Diabetes Mellitus Type 2: Yes - HEMATOLOGICAL/ONCOLOGICAL Hx Blood Disorders: Yes Hx Shingles: Yes (H/O IN JULY, left face) - INTEGUMENTARY Hx Dermatological Problems: Yes Other/Comment: 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 PT USES COUMADIN.BILATERAL LEG EDEMA +1.VERY DRY SKIN. - MUSCULOSKELETAL/RHEUMATOLOGICAL Hx Musculoskeletal Disorders: Yes Hx Falls: Yes Hx Fractures: Yes (TAIL BONE FX) Hx Unsteady Gait: Yes - GASTROINTESTINAL Hx Gastrointestinal Disorders: Yes (ULCER,GALL BLADDER DISEASE,CHOLECYSTECTOMY,) Other/Comment: CONSTIPATION - GENITOURINARY/GYNECOLOGICAL Hx Genitourinary Disorders: No - PSYCHIATRIC Hx Psychophysiologic Disorder: Yes Hx Anxiety: Yes Hx Depression: No Hx Emotional Abuse: No Hx Physical Abuse: No Hx Substance Use: (UNKNOWN) - SURGICAL HISTORY Hx Appendectomy: Yes Hx Cholecystectomy: Yes Hx Hysterectomy: Yes Hx Mastectomy: Yes (left mastectomy) Hx Open Heart Surgery: Yes Other/Comment: QUADRUPLE BYPASS,OPEN HEART,CARDIAC STENT X 1 - ANESTHESIA Hx Anesthesia: Yes Hx Anesthesia Reactions: No Hx Malignant Hyperthermia: No Meds Allergies/Adverse Reactions: Allergies Allergy/AdvReac Type Severity Reaction Status Date / Time latex Allergy RASH Verified 07/22/18 12:22 Sulfa (Sulfonamide Allergy RASH Verified 07/22/18 12:22 Antibiotics) rubber Allergy RASH Uncoded 07/22/18 12:22 tape Allergy RASH Uncoded 07/22/18 12:22 Physical Exam - Constitutional Appears: No Acute Distress, Cachectic, Chronically Ill - Head Exam Head Exam: ATRAUMATIC, NORMOCEPHALIC - Eye Exam Eye Exam: EOMI - ENT Exam ENT Exam: Mucous Membranes Moist - Respiratory Exam Respiratory Exam: Decreased Breath Sounds Additional comments: currently on BIPAP - Cardiovascular Exam Cardiovascular Exam: REGULAR RHYTHM. absent: Tachycardia - GI/Abdominal Exam GI & Abdominal Exam: Soft. absent: Distended, Guarding, Tenderness - Extremities Exam Extremities exam: Positive for: pedal pulses present. Negative for: calf tenderness, pedal edema - Neurological Exam Neurological exam: Altered - Psychiatric Exam Psychiatric exam: Normal Affect, Normal Mood - Skin Skin Exam: Dry, Intact, Normal Color, Warm Results - Vital Signs Recent Vital Signs: Last Vital Signs Temp 0 F L 07/24/18 06:00 Pulse 0 L 07/24/18 06:00 Resp 0 L 07/24/18 06:00 BP Pulse Ox 0 L 07/24/18 06:00 Assessment & Plan - Assessment and Plan (Free Text) Assessment: 77 yr old female with COPD exacerbation, CO2 narcosis, no on hospice care Plan: Hospice care: c/w morphine drip for pain control pt now on Hiflow nasal canulla c/w compazine PRN c/w tyleno PRNl c/w ativan PRN c/w scopolamine PRN comfort care measures only, no invasive procedures patient seen and discussed with Dr. Girma Doe, PGY 1 - Date & Time Date: 07/23/18 Time: 18:15 Decision To Admit - Pt Status Changed To: Hospital Disposition Of: Inpatient Admission - Admit Certification Admit to Inpatient:: After my assessment, the patient will require hospit alization for at least two midnights. This is because of the severity of symptoms shown, intensity of services needed, and/or the medical risk in this patient being treated as an outpatient. - . Bed Request Type: Med/Surg Admitting Physician: Indigo Rayo <Indigo Rayo - Last Filed: 07/26/18 13:57> Results - Vital Signs Recent Vital Signs: Last Vital Signs Temp 0 F L 07/24/18 06:00 Pulse 0 L 07/24/18 06:00 Resp 24 07/25/18 10:00 BP Pulse Ox 0 L 07/24/18 06:00 Attending/Attestation - Attestation I have personally seen and examined this patient.: Yes I have fully participated in the care of the patient.: Yes I have reviewed all pertinent clinical information: Yes Notes (Text): Medical attending covering Dr. Duggan Patient seen and examined by me with resident at 11:10 AM on 07/24/18. Case including HPI, physical exam, and assessment and plan discussed with resident. Agree with above with following additions/corrections. Patient is a 77 year old female with past medical history significant for right upper lobe perihilar lung mass, insulin dependent DM2, COPD on home O2, atrial fibrillation on Coumadin, CVA, left sided breast cancer s/p treatment, CAD s/p CABG, CHF, hypertension, shingles, hypertension, TIA, and pancreatitis that presented to the emergency room with shortness of breath on 07/22/18. Patient is DNR/DNI. Patient was found to hypercapnic and hypoxic. Patient was placed on BIPAP. Patient was seen by pulmonary. Patient had CO2 narcosis. Family decided to make patient comfort care/hospice care. Patient admitted to hospice care. Patient on morphine drip. Resting comfortably. Unable to obtain review of systems from patient. Family at bedside. Physical exam: General: Resting comfortably on BiPAP. HEENT: Normocephalic, atraumatic. Pupils equal and reactive, no scleral icterus. BIPAP present. Cardiovascular: Irregularly irregular rhythm.No murmurs, rubs, or gallops appreciated Pulmonary: Auscultated anteriorly. Decreased breath sounds. No rhonchi, rales, or wheezing appreciated. Gastrointestinal: Soft, nondistended. Positive bowel sounds all 4 quadrants. No guarding. Musculoskeletal: No edema appreciated. Central nervous system: Resting comfortably, sedated. Dermatologic: Skin warm and dry. Assessment and Plan: Patient is a 77 year old female with past medical history significant for right upper lobe perihilar lung mass, insulin dependent DM2, COPD on home O2, atrial fibrillation on Coumadin, CVA, left sided breast cancer s/p treatment, CAD s/p CABG, CHF, hypertension, shingles, hypertension, TIA, and pancreatitis that presented to the emergency room with shortness of breath . Now on hospice care. 1. Hospice care. Continue morphine drip. Continue Ativan. Continue scopolamine patch. Wean off BIPAP and place on hi flow oxygen. 2. Acute respiratory failure with hypoxemia and hypercapnia. On hospice/comfort care. 3. Afib with RVR. On hospice/comfort care. 4. DM2. On hospice/comfort care. 5. Hypertension. On hospice/comfort care. 6. History of diastolic CHF. On hospice/comfort care. 7. Hyperlipdemia. On hospice/comfort care. 8. Hypothyroidism. On hospice/comfort care. 9. Chest pain in a patient with CAD. On hospice/comfort care. 10. Depression and anxiety. On hospice/comfort care. 11. Tobacco abuse. On hospice/comfort care. 12. Postherpetic neuralgia. On hospice/comfort care. 13. Patient is DNR/DNI Case was discussed in detail with family. All questions answered.
[2018-07-24] MEDS: Morphine PCA 1 mg/ml (30ml) 30 ML IV PRN ×2 (14:41→22:04)
[2018-07-25] MEDS: Morphine PCA 1 mg/ml (30ml) 30 ML IV PRN ×2 (08:13→12:03)
[2018-07-25 10:01] VITALS: RESP 24
--- NOTE | 2018-07-25 15:21 | CP.PCM.PN ---
<Pan Jinystal - Last Filed: 07/25/18 15:47> Subjective - Date & Time of Evaluation Date of Evaluation: 07/25/18 Time of Evaluation: 07:00 - Subjective Subjective: Hospice progress note for HospitalistGeronimo PGY3 Patient seen and examined at bedside. Patient is resting comfortably in bed. Patient is asleep but arousable. ROS could not be obtained. Family is at bedside. Objective - Vital Signs/Intake and Output Vital Signs (last 24 hours): Temp Pulse Resp BP Pulse Ox 0 F L 0 L 24 0 L 07/24/18 06:00 07/24/18 06:00 07/25/18 10:00 07/24/18 06:00 Intake and Output: 07/25/18 07/25/18 06:59 18:59 Intake Total 30 30 Balance 30 30 - Medications Medications: Current Medications Acetaminophen (Tylenol 650 Mg Supp) 650 mg RC Q6H PRN PRN Reason: Fever >100.4 F Morphine Sulfate (Morphine Broomcorn Thresher 1 Mg/Ml) 30 mls @ 3 mls/hr IV PRN PRN; Protocol PRN Reason: LIGHT ADJUSTER per MD order Last Admin: 07/25/18 12:03 Dose: 3 mg/hr, 3 mls/hr Lorazepam (Ativan) 1 mg IVP Q3H PRN; Protocol PRN Reason: Agitation Prochlorperazine (Compazine Rectal Supp) 25 mg RC TID PRN PRN Reason: Nausea/Vomiting Scopolamine (Transderm-Scop) 1 patch TD Q3D HEATHER - Constitutional Appears: No Acute Distress, Chronically Ill - Head Exam Head Exam: ATRAUMATIC, NORMAL INSPECTION, NORMOCEPHALIC - Eye Exam Eye Exam: Normal appearance - ENT Exam ENT Exam: Mucous Membranes Dry - Neck Exam Neck Exam: Full ROM - Respiratory Exam Respiratory Exam: Rhonchi, NORMAL BREATHING PATTERN. absent: Accessory Muscle Use, Decreased Breath Sounds, Rales, Respiratory Distress - Cardiovascular Exam Cardiovascular Exam: REGULAR RHYTHM, +S1, +S2. absent: Gallop, Rubs, Murmur - GI/Abdominal Exam GI & Abdominal Exam: Soft, Normal Bowel Sounds. absent: Rigid, Tenderness, Mass , Rebound - Extremities Exam Extremities Exam: Normal Inspection. absent: Calf Tenderness, Pedal Edema - Neurological Exam Neurological Exam: CN II-XII Intact - Skin Skin Exam: Dry, Intact, Warm Assessment and Plan - Assessment and Plan (Free Text) Assessment: This is a 77yo female with past medical history of COPD, RUL lung ca who was admitted for COPD exacerbation with CO2 narcosis who is currently in hospice. Plan: - Continue pain control with morphine drip - Continue Tylenol and Ativan prn - Continue Compazine and Scopolamine prn - Spoke with hospice care nurse at length this AM - Discussed case with family at length throughout the day Case seen, reviewed and discussed with Dr. Mendez. Lamar Jin PGY3 <Tyler Mendez - Last Filed: 07/25/18 17:23> Objective - Vital Signs/Intake and Output Vital Signs (last 24 hours): Temp Pulse Resp BP Pulse Ox 0 F L 0 L 24 0 L 07/24/18 06:00 07/24/18 06:00 07/25/18 10:00 07/24/18 06:00 Intake and Output: 07/25/18 07/25/18 06:59 18:59 Intake Total 30 30 Balance 30 30 - Medications Medications: Current Medications Acetaminophen (Tylenol 650 Mg Supp) 650 mg RC Q6H PRN PRN Reason: Fever >100.4 F Morphine Sulfate (Morphine Broomcorn Thresher 1 Mg/Ml) 30 mls @ 3 mls/hr IV PRN PRN; Protocol PRN Reason: LIGHT ADJUSTER per MD order Last Admin: 07/25/18 12:03 Dose: 3 mg/hr, 3 mls/hr Lorazepam (Ativan) 1 mg IVP Q3H PRN; Protocol PRN Reason: Agitation Prochlorperazine (Compazine Rectal Supp) 25 mg RC TID PRN PRN Reason: Nausea/Vomiting Scopolamine (Transderm-Scop) 1 patch TD Q3D [facility] Attending/Attestation - Attestation I have personally seen and examined this patient.: Yes I have fully participated in the care of the patient.: Yes I have reviewed all pertinent clinical information, including history, physical exam and plan: Yes Notes (Text): 07/25/18 17:22 Attending note; Patient seen and examined with the resident. Patient's family by the bedside. Patient is on hospice care. Currently on IV morphine drip. IV Ativan when necessary. Patient with agonal breathing at times. Discussed with nursing staff in detail. Continue hospice care. Patient is DNI DNR .
--- NOTE | 2018-07-25 18:27 | CP.PCM.PRO ---
Pronouncement of Note - Clinical Findings Physical Exam: No Response Verbal/Painful Stimuli, Absent Peripheral Puls es{Carotid & Femoral}, Absent Heart & Breath Sounds, No Pupillary Light Reflex, No Corneal Reflex, Pupils Fixed & Dilated, Absence of Vital Signs - Pronouncement Time Time of Pronouncement of : 18:10 - Notifications Pronouncement Notifications: Family Notified, Atending Notified Condenser Tube Tender Notified: No - Autopsy Autopsy Requested: No - [place] [id number]
--- NOTE | 2018-07-26 07:18 | CP.PCM.DIS ---
Provider - Provider Date of Admission: 07/23/18 22:26 Attending physician: Indigo Rayo DO Primary care physician: Kosta Duggan MD Time Spent in preparation of Discharge (in minutes): 20 Diagnosis - Discharge Diagnosis (1) Hospice care patient Status: Acute (2) in hospice Status: Acute Hospital Course - Hospital Course Hospital Course: This is a 77yo female with past medical history of COPD, RUL lung ca who was admitted for COPD exacerbation with CO2 narcosis who was placed in Hospice care. Patient was placed on morphine drip with prn ativan. Patient had prn compazine and scopolamine. Patient at 18:10 on 07/25/18. Family was at bedside. Family has already made arrangements with home. - Date & Time of H&P Date of H&P: 07/24/18 Time of H&P: 12:00 Discharge Exam - Head Exam Head Exam: ATRAUMATIC, NORMAL INSPECTION, NORMOCEPHALIC - Eye Exam Eye Exam: absent: EOMI, PERRL Pupil Exam: absent: NORMAL ACCOMODATION, PERRL - ENT Exam ENT Exam: Mucous Membranes Dry - Respiratory Exam Additional comments: No breath sounds. Absent respirations. - Cardiovascular Exam Additional comments: Absent heart sounds. - GI/Abdominal Exam Additional comments: Absent bowel sounds. - Extremities Exam Additional comments: No pulses present. - Neurological Exam Additional comments: No reflexes. - Skin Additional comments: Cold extremities. Discharge Plan - Follow Up Plan Condition: GOOD Disposition: WITH WITHOUT AUTOPSY Referrals: Kosta Duggan MD [Primary Care Provider] -
== END 2018-07-25 18:10 | DRG 951 ==
LOC: 5RSO 22:26
PROVIDERS: ADMIT Hospitalist; ATTEND Hospitalist
PROC: 5A09357 Assistance with Respiratory Ventilation, Less than 24 Consecutive Hours, Continuous Positive Airway Pressure (ICD-10-PCS; principal; 2018-07-24)
DX: Z51.5 Encounter for palliative care (principal); J96.01 Acute respiratory failure with hypoxia; J96.02 Acute respiratory failure with hypercapnia; J44.1 Chronic obstructive pulmonary disease with (acute) exacerbation; C34.11 Malignant neoplasm of upper lobe, right bronchus or lung; B02.29 Other postherpetic nervous system involvement; I50.32 Chronic diastolic (congestive) heart failure; R64 Cachexia; Z66 Do not resuscitate; I11.0 Hypertensive heart disease with heart failure; E03.9 Hypothyroidism, unspecified; E11.9 Type 2 diabetes mellitus without complications; F17.200 Nicotine dependence, unspecified, uncomplicated; I25.10 Atherosclerotic heart disease of native coronary artery without angina pectoris; I48.91 Unspecified atrial fibrillation; F32.9 Major depressive disorder, single episode, unspecified; F41.9 Anxiety disorder, unspecified; Z68.23 Body mass index [BMI] 23.0-23.9, adult; Z79.01 Long term (current) use of anticoagulants; Z79.4 Long term (current) use of insulin; Z85.3 Personal history of malignant neoplasm of breast; Z99.81 Dependence on supplemental oxygen; Z95.5 Presence of coronary angioplasty implant and graft; Z95.1 Presence of aortocoronary bypass graft; Z88.2 Allergy status to sulfonamides